=== PATIENT | female | born 1975 | race Caucasian/White ===

== ENCOUNTER 2016-09-09 14:46 | Emergency (ER) | payer BC, OTHER ==
[~2016-09-09] VITALS: Ht 160 cm; Wt 160.0 kg
[~2016-09-09 14:46] MED LIST: ADVI200T PO; HYDR-3129 PO; ISON100T2 PO; LORA-474 PO; VITA50TA30 PO
[2016-09-09 14:48] VITALS: BP 144/96; PULSE 90; RESP 18; TEMP 97.7; O2SAT 98
--- NOTE | 2016-09-09 15:32 | PD ---
HPI . right knee pain s/p fall Chief Complaint: Injury Time Seen by Provider: 15:31 Travel History International Travel<30 days: No Contact w/Intl Traveler<30days: No Traveled to known affect area: No History of Present Illness HPI 40-year-old female here with complaints of right knee pain status post fall yesterday while at the [facility] at [place]. Patient says she slipped and fell hurting her right knee. She tells me that she has a history of sustaining easy fractures and would like to know if this is broken. She complains of pain in the patella. She is ambulatory and can flex and extend her knee. She rates the pain as moderate. SHe does have history of knee pain. She is accompanied by her significant other. PFSH Past Medical History Arthritis: Yes (RA) Diminished Hearing: No Fibromyalgia: Yes Reproductive: Yes (PCOS) Immunizations Current: No ?: Not LMP: 09/05/16 : 2 Miscarriage: 2 Ovarian Cysts: Yes (POLYCYSTIC OVARY DISEASE) Past Surgical History Appendectomy: Yes Social History Alcohol Use: Yes ("VERY RARELY") Tobacco Use: Yes (3/3 PPD) Substance Use: No Allergies-Medications (Allergen,Severity, Reaction): Coded Allergies: Sulfa (Verified Allergy, Mild, Itching, 09/09/16) Reported Meds & Prescriptions Reported Meds & Active Scripts Active Reported Ambien (Zolpidem Tartrate) 10 Mg Tab 10 Mg PO HS PRN Percocet (Oxycodone-Acetaminophen) 10-325 mg Tab 1 Tab PO Q6H PRN Ativan (Lorazepam) 1 Mg Tab 1 Mg PO DAILY PRN Review of Systems General / Constitutional: No: Fever Eyes: No: Visual changes HENT: No: Headaches Cardiovascular: No: Chest Pain or Discomfort Respiratory: No: Shortness of Breath Gastrointestinal: No: Abdominal Pain Genitourinary: No: Dysuria Musculoskeletal: Positive: Pain (right knee pain) Skin: No Rash Neurologic: No: Weakness Psychiatric: No: Depression Endocrine: No: Polydipsia Hematologic/Lymphatic: No: Easy Bruising Physical Exam Narrative GENERAL: AAO x 3, no acute distress, Well-nourished, well-developed patient. SKIN: Warm and dry. No visible rashes or bruising. HEAD: Normocephalic and atraumatic. EYES: No scleral icterus. No injection or drainage. ENT: No nasal drainage noted. Mucous membranes pink. Airway patent. NECK: Supple, trachea midline. No JVD. CARDIOVASCULAR: Regular rate and rhythm without murmurs, gallops, or rubs. RESPIRATORY: Breath sounds equal bilaterally. No accessory muscle use. No rhonchi or rales. GASTROINTESTINAL: Abdomen soft, non-tender, nondistended. EXTREMITIES: No cyanosis or edema. tenderness to patella, no edema or ecchymosis , flexion and extension normal, but elicits pain BACK: No obvious deformity. NEURO: CN II-12 intact, firer powerhouse strength normal b/l, UE and LE 5/5, no focal deficits PSYCH: AAO x 3, normal affect. Data Data Last Documented VS Vital Signs Date Time Temp Pulse Resp B/P Pulse Ox O2 Delivery O2 Flow Rate FiO2 09/09/16 14:48 97.7 90 18 144/96 98 Orders Knee, Complete (4vws) (09/09/16 15:35) Abdoulaye Bandage (09/09/16 16:22) Crutches (09/09/16 16:22) MDM Medical Decision Making Medical Screen Exam Complete: Yes Emergency Medical Condition: Yes Medical Record Reviewed: Yes Differential Diagnosis knee pain, less likely fracture, less likely dislocation, fall Narrative Course 40-year-old female here with complaints of right knee pain status post fall. I do not suspect a bony injury, however she insists that she is easy to sustain fractures. xray ordered Last Impressions Knee X-Ray 09/09/16 1535 Signed Impressions: Service Date/Time: Friday, September 09, 2016 16:00 - CONCLUSION: Unremarkable examination of the right knee. Jhon Nicole MD I discussed the normal findings with the patient. We have provided Abdoulaye wrap and crutches. She is already taking pain medications and can resume those. I also advised her that she could use some [id number] ibuprofen Patient verbalized understanding of instructions, questions were answered, and thanked me for their care. I advised them if their condition worsens, please return to the nearest emergency room for further care. Diagnosis Primary Impression: Right knee pain Qualified Code: M25.561 - Acute pain of right knee Additional Impression: Fall Qualified Code: W19.XXXA - Fall, initial encounter Patient Instructions: General Instructions Additional Instructions: Rest the affected area as much as possible. Ice this area for 15-20 minutes at a time. You can do this every hour or as much as tolerated. Keep this area compressed (abdoulaye bandage) as tolerated. Elevate this area. Use ibuprofen as needed for pain and inflammation. Please return to emergency department if your symptoms return or worsen. Follow up with your primary care provider. Med/Other Pt SpecificInfo: No Change to Meds Disposition: 01 DISCHARGE HOME Condition: Stable Celsa Scott Sep 09, 2016 15:32
--- NOTE | 2016-09-09 16:08 | RADRPT ---
EXAM DATE/TIME: 09/09/2016 16:00 [facility] COMPARISON: No previous studies available for comparison. INDICATIONS : Right knee pain post fall today. MEDICAL HISTORY : None. SURGICAL HISTORY : None. ENCOUNTER: Initial ACUITY: 1 day PAIN SCORE: 7/10 LOCATION: Right knee. FINDINGS: Four view examination of the right knee demonstrates no evidence of fracture or dislocation. Bony mi neralization is normal. The articular surfaces are intact. The suprapatellar soft tissues have a no rmal configuration. Soft tissue calcification consistent with chondrocalcinosis and CPPD CONCLUSION: Unremarkable examination of the right knee. John Nicole MD on September 09, 2016 at 16:06 Board Certified Radiologist. This report was verified electronically.
[2016-09-09] MEDS ORDERED: LORA-474 PO (16:09)
[2016-09-09] MEDS ORDERED: PERC10TA27 PO (16:09)
[2016-09-09] MEDS ORDERED: AMBI10TA PO (16:09)
[2016-09-09 16:24] VITALS: BP 138/86; TEMP 97.8
== END 2016-09-09 16:24 | disposition home or self-care (01) ==
LOC: NEPK 14:46
DX: M25.561 Pain in right knee (principal); M06.9 Rheumatoid arthritis, unspecified; M79.7 Fibromyalgia; E28.2 Polycystic ovarian syndrome; F17.200 Nicotine dependence, unspecified, uncomplicated; Z79.899 Other long term (current) drug therapy; Z88.2 Allergy status to sulfonamides; W01.0XXA Fall on same level from slipping, tripping and stumbling without subsequent striking against object, initial encounter
CPT/HCPCS: 73564; 99283; E0113

== ENCOUNTER 2016-09-18 00:59 | Emergency (ER) | payer BC ==
[~2016-09-18] VITALS: Ht 160 cm; Wt 154.5 kg
[~2016-09-18 00:59] MED LIST changes: -ADVI200T PO; +AMBI10TA PO; -HYDR-3129 PO; -ISON100T2 PO; +PERC10TA27 PO; -VITA50TA30 PO
[2016-09-18 01:05] VITALS: BP 173/102; PULSE 114; RESP 18; TEMP 98; O2SAT 98
[2016-09-18] MEDS ORDERED: APRE1TAB3 PO (01:30)
[2016-09-18] MEDS ORDERED: ACET-815 PO (01:30)
[2016-09-18] MEDS ORDERED: IBUP800T23 PO (01:30)
[2016-09-18] MEDS ORDERED: ONDANSETRON HCL 4 MG/2 ML VIAL IV PUSH ONE (03:00)
[2016-09-18] MEDS ORDERED: MORPHINE SULFATE 4 MG/ML INJ IV PUSH ONE (03:00)
[2016-09-18] MEDS ORDERED: KETOROLAC TROMETHAMINE 30 MG/ML (IVP) VIAL IV PUSH ONE (03:00)
[2016-09-18 03:10] VITALS: PULSE 87; RESP 16; O2SAT 95
--- NOTE | 2016-09-18 03:11 | PD ---
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 Patient has history of PCOS and of recurrent pelvic pain and vaginal bleeding. Patient was seen by tip finisher and personal physician about this problem. Patient states that the pain got worse recently. Patient states that her last menstruation period was 2 weeks ago with pelvic pain and vaginal bleeding. Patient states that she started having vaginal bleeding with pelvic pain again this evening. Patient denies any headache. Patient denies any chest pain or shortness of breath. Patient denies any nausea vomiting diarrhea. Patient denies any back pain. She states that the pelvic pain localized to lower abdomen pelvic area. Patient denies any pain radiation. On a scale of 1-10 the pain is a 10. Patient status post appendectomy. Patient has history of migraine, anxiety, fibromyalgia, dyslipidemia, migraine. PFSH Past Medical History Arthritis: Yes Anxiety: Yes High Cholesterol: Yes Diminished Hearing: No Fibromyalgia: Yes Headaches: Yes Reproductive: Yes (PCOS) Immunizations Current: No Migraines: Yes Triglycerides - High: Yes Tetanus Vaccination: Unknown ?: Not LMP: 09/17/16 : 2 Miscarriage: 2 Ovarian Cysts: Yes (POLYCYSTIC OVARY DISEASE) Past Surgical History Appendectomy: Yes Social History Alcohol Use: Yes ("VERY RARELY") Tobacco Use: Yes (3/4 PPD) Substance Use: No (PT DENIES ) Allergies-Medications (Allergen,Severity, Reaction): Coded Allergies: Sulfa (Verified Allergy, Mild, Itching, 09/18/16) Reported Meds & Prescriptions Reported Meds & Active Scripts Active Reported Otezla (Apremilast) 30 Mg Tab 1 Tab PO DAILY Midol Teen (Acetaminophen-Pamabrom) 500-25 mg Tab 2 Tab PO Q6HR PRN Ibuprofen 800 Mg Tab 800 Mg PO Q8H PRN Ambien (Zolpidem Tartrate) 10 Mg Tab 10 Mg PO HS PRN Percocet (Oxycodone-Acetaminophen) 10-325 mg Tab 1 Tab PO Q6H PRN Ativan (Lorazepam) 1 Mg Tab 1 Mg PO DAILY PRN Review of Systems General / Constitutional: No: Fever Eyes: No: Visual changes HENT: No: Headaches Cardiovascular: No: Chest Pain or Discomfort Respiratory: No: Shortness of Breath Gastrointestinal: No: Abdominal Pain Genitourinary: Positive: Dysmenorrhea, Vaginal Bleeding, No: Dysuria Musculoskeletal: No: Pain Skin: No Rash Neurologic: No: Weakness Psychiatric: No: Depression Endocrine: No: Polydipsia Hematologic/Lymphatic: No: Easy Bruising Physical Exam Narrative GENERAL: Well-nourished, well-developed patient. SKIN: Focused skin assessment warm/dry. HEAD: Normocephalic. EYES: No scleral icterus. No injection or drainage. NECK: Supple, trachea midline. No JVD or lymphadenopathy. CARDIOVASCULAR: Regular rate and rhythm without murmurs, gallops, or rubs. RESPIRATORY: Breath sounds equal bilaterally. No accessory muscle use. GASTROINTESTINAL: Abdomen soft, moderate tenderness with palpation lower abdomen , nondistended. No rebound tenderness. No mass. MUSCULOSKELETAL: No cyanosis, or edema. BACK: Nontender without obvious deformity. No CVA tenderness. Data Data Last Documented VS Vital Signs Date Time Temp Pulse Resp B/P Pulse Ox O2 Delivery O2 Flow Rate FiO2 09/18/16 03:12 117/68 09/18/16 03:10 87 16 95 Room Air 09/18/16 01:05 98.0 Orders Complete Blood Count With Diff (09/18/16 02:43) Comprehensive Metabolic Panel (09/18/16 02:43) Urinalysis - C+S If Indicated (09/18/16 02:43) Iv Access Insert/Monitor (09/18/16 02:43) Ecg Monitoring (09/18/16 02:43) Oximetry (09/18/16 02:43) Ed Urine Pregnancytest Poc (09/18/16 02:43) Morphine Inj (Morphine Inj) (09/18/16 03:00) Ketorolac Inj (Toradol Inj) (09/18/16 03:00) Ondansetron Inj (Zofran Inj) (09/18/16 03:00) Us Pelvis Comp W Transvaginal (09/18/16 02:43) Labs Laboratory Tests Test 09/18/16 09/18/16 03:00 03:30 White Blood Count 12.9 TH/MM3 Red Blood Count 4.64 MIL/MM3 Hemoglobin 14.0 GM/DL Hematocrit 41.2 % Mean Corpuscular Volume 88.8 FL Mean Corpuscular Hemoglobin 30.1 PG Mean Corpuscular Hemoglobin 34.0 % Concent Red Cell Distribution Width 13.7 % Platelet Count 225 TH/MM3 Mean Platelet Volume 8.6 FL Neutrophils (%) (Auto) 62.0 % Lymphocytes (%) (Auto) 30.8 % Monocytes (%) (Auto) 3.5 % Eosinophils (%) (Auto) 2.7 % Basophils (%) (Auto) 1.0 % Neutrophils # (Auto) 8.0 TH/MM3 Lymphocytes # (Auto) 4.0 TH/MM3 Monocytes # (Auto) 0.5 TH/MM3 Eosinophils # (Auto) 0.3 TH/MM3 Basophils # (Auto) 0.1 TH/MM3 CBC Comment AUTO DIFF Differential Comment AUTO DIFF CONFIRMED Platelet Estimate NORMAL Platelet Morphology Comment NORMAL Red Cell Morphology Comment NORMAL Sodium Level 140 MEQ/L Potassium Level 3.6 MEQ/L Chloride Level 105 MEQ/L Carbon Dioxide Level 28.0 MEQ/L Anion Gap 7 MEQ/L Blood Urea Nitrogen 7 MG/DL Creatinine 0.82 MG/DL Estimat Glomerular Filtration 76 ML/MIN Rate Random Glucose 134 MG/DL Calcium Level 9.0 MG/DL Total Bilirubin 0.2 MG/DL Aspartate Amino Transf 26 U/L (AST/SGOT) Alanine Aminotransferase 31 U/L (ALT/SGPT) Alkaline Phosphatase 90 U/L Total Protein 7.6 GM/DL Albumin 3.3 GM/DL Urine Color JT Urine Turbidity CLEAR Urine pH 5.5 Urine Specific [place] 1.034 Urine Protein TRACE mg/dL Urine Glucose (UA) NEG mg/dL Urine Ketones NEG mg/dL Urine Occult Blood SMALL Urine Nitrite NEG Urine Bilirubin NEG Urine Leukocyte Esterase NEG Urine RBC 4-9 /hpf Urine WBC 0-2 /hpf Urine Squamous Epithelial 6-8 /hpf Cells Urine Bacteria NONE /hpf Microscopic Urinalysis Comment CULT NOT INDICATED MDM Medical Decision Making Medical Screen Exam Complete: Yes Emergency Medical Condition: Yes Interpretation(s) 3:50 AM. CBC WBC 12.9. Normal differential. CMP within normal limit. UA positive RBC. 4:18 AM. Last Impressions Pelvis Ultrasound 09/18/16 0243 Signed Impressions: Service Date/Time: August 03:24 - CONCLUSION: The right ovary is not visualized. Otherwise, normal pelvic ultrasound. Evelio Ramos MD Differential Diagnosis Differential diagnosis including acute exacerbation of PCOS, UTI, pyelonephritis , nephrolithiasis, threatened AB, ectopic . Narrative Course 40-year-old female with acute exacerbation of recurrent abdominal pain pelvic pain and vaginal bleeding. History of PCOS. Morphine 2 mg IV. Zofran 4 mg IV. Toradol 30 mg IV. Diagnosis Primary Impression: PELVIC AND PERINEAL PAIN Patient Instructions: General Instructions Additional Instructions: Continue with ibuprofen for pain. Follow-up with personal physician and tip finisher. Return if worse. Med/Other Pt SpecificInfo: No Change to Meds Disposition: 01 DISCHARGE HOME Condition: Stable Tad Tafoya MD Sep 18, 2016 03:11
[2016-09-18 03:12] VITALS: BP 117/68
[2016-09-18 03:13] LABS: BASOPHIL # 0.1 TH/MM3 (0-0.2); EOSINOPHIL # 0.3 TH/MM3 (0-0.4); EOSINOPHIL % 2.7 % (0.0-4.0); HEMATOCRIT 41.2 % (35.0-46.0); LYMPH % 30.8 % (9.0-44.0); MEAN CELL VOLUME 88.8 FL (80.0-100.0); MEAN CORPUSCULAR HEMOGLOBIN 30.1 PG (27.0-34.0); MONO % 3.5 % (0.0-8.0); PLATELET COUNT 225 TH/MM3 (150-450); RED BLOOD COUNT 4.64 MIL/MM3 (4.00-5.30); RED CELL DISTRIBUTION WIDTH 13.7 % (11.6-17.2); WHITE BLOOD COUNT 12.9 TH/MM3 (4.0-11.0)
[2016-09-18 03:15] LABS: HEMO FLAGS AUTO DIFF
[2016-09-18 03:33] LABS: PLATELET ESTIMATE SMEAR NORMAL (NORMAL); PLATELET MORPHOLOGY NORMAL (NORMAL); SCAN/DIFF AUTO DIFF CONFIRMED
[2016-09-18 03:34] LABS: CHLORIDE 105 MEQ/L (98-107); POTASSIUM 3.6 MEQ/L (3.5-5.1); SODIUM (NA) 140 MEQ/L (136-145)
[2016-09-18 03:38] LABS: ANION GAP 7 MEQ/L (5-15); BLOOD UREA NITROGEN 7 MG/DL (7-18)
[2016-09-18 03:41] LABS: ALT (GPT) 31 U/L (10-53); AST (GOT) 26 U/L (15-37); GLOMERULAR FILTRATION RATE 76 ML/MIN (>89)
[2016-09-18 03:41] LABS: BLOOD, URINE SMALL (NEG); GLUCOSE,URINE NEG (NEG); KETONE, URINE NEG (NEG); NITRITE,URINE NEG (NEG); PH, URINE 5.5 (5.0-8.5)
[2016-09-18 03:42] LABS: TOTAL BILIRUBIN ADULT 0.2 MG/DL (0.2-1.0)
[2016-09-18 03:43] LABS: ALKALINE PHOSPHATASE 90 U/L (45-117)
[2016-09-18 03:47] LABS: COMMENT (UR) CULT NOT INDICATED; CULTURE IF INDICATED CULT NOT INDICATED; URINE COLOR AMBER (YELLW/STRAW); WBC, URINE 0-2 /hpf (0-5)
--- NOTE | 2016-09-18 04:03 | RADRPT ---
EXAM DATE/TIME: 09/18/2016 03:24 [facility] COMPARISON: US PELVIS COMP W/TRANSVAGINAL, June 18, 2011, 15:08. EXTERNAL COMPARISON : [facility], US TRANSVAGINAL, August 08, 2015, US PELVIS- COMPLETE, August 08, 2015. INDICATIONS : Pelvic pain. MEDICAL HISTORY : Hypercholesterolemia. Arthritis. Migraines. Hyperlipidemia. PCOS. Fibromyalgia. Anxiety. SURGICAL HISTORY : Appendectomy. Bilateral carpel tunnel. ENCOUNTER: Initial ACUITY: 1 day PAIN SCORE: 9/10 LOCATION: Bilateral pelvis MEASUREMENTS: UTERUS: 9.3 x 4.3 x 4.5 cm ENDOMETRIAL STRIPE: 14 mm RIGHT OVARY: Non visualized LEFT OVARY: 2.5 x 2.7 x 2.8 cm FINDINGS: UTERUS: The myometrium has homogeneous echotexture without mass. Nabothian cysts are present. RIGHT OVARY: Not visualized. No adnexal mass is seen. LEFT OVARY: Ovary contains no mass or significant cystic lesion. Follicles are present. MISCELLANEOUS: No free fluid. CONCLUSION: The right ovary is not visualized. Otherwise, normal pelvic ultrasound. Evelio Ramos MD on September 18, 2016 at 4:00 Board Certified Radiologist. This report was verified electronically.
[2016-09-18 04:35] VITALS: BP 107/59; PULSE 82; RESP 16; O2SAT 97
== END 2016-09-18 04:38 | disposition home or self-care (01) ==
LOC: PHED 00:59
DX: R10.2 Pelvic and perineal pain (principal); F17.200 Nicotine dependence, unspecified, uncomplicated
CPT/HCPCS: 76830; 76856; 80053; 81001; 84703; 85025; 96374; 96375; 99285; J1885; J2270; J2405

== ENCOUNTER 2016-12-01 10:23 | Day surgery (SDC) | payer BC ==
[~2016-12-01] VITALS: Ht 160 cm; Wt 158.0 kg
[~2016-12-01 10:23] MED LIST changes: +ACET-815 PO; +APRE1TAB3 PO; +IBUP800T23 PO
[2016-12-01 11:00] VITALS: BP 141/92; PULSE 81; RESP 19; O2SAT 96
[2016-12-01] MEDS ORDERED: ASPIRIN 81 MG CHEW TAB PO SCH (11:15)
[2016-12-01 11:57] LABS: PROTHROMBIN TIME - PATIENT 11.2 SEC (9.8-11.6)
[2016-12-01 12:12] LABS: BASOPHIL # 0.1 TH/MM3 (0-0.2); BASOPHIL % 0.6 % (0.0-2.0); EOSINOPHIL # 0.3 TH/MM3 (0-0.4); EOSINOPHIL % 3.2 % (0.0-4.0); HEMATOCRIT 40.2 % (35.0-46.0); HEMO FLAGS DIFF FINAL; LYMPH % 34.3 % (9.0-44.0); LYMPHOCYTE # 3.1 TH/MM3 (1.0-4.8); MEAN CELL VOLUME 91.4 FL (80.0-100.0); MEAN CORPUSCULAR HEMOGLOBIN 31.6 PG (27.0-34.0); MEAN CORPUSCULAR HGB CONC 34.6 % (32.0-36.0); MONO % 6.9 % (0.0-8.0); PLATELET COUNT 189 TH/MM3 (150-450); RED CELL DISTRIBUTION WIDTH 14.5 % (11.6-17.2); WHITE BLOOD COUNT 9.1 TH/MM3 (4.0-11.0)
[2016-12-01 12:14] LABS: POTASSIUM 3.9 MEQ/L (3.5-5.1)
[2016-12-01 13:26] LABS: BETA HCG QUANT LESS THAN 1 MIU/ML (0-5)
--- NOTE | 2016-12-01 16:12 | EKG ---
Date Performed: 12/01/2016 Time Performed: 11:35:00 PTAGE: 41 years EKG: Sinus rhythm QRS changes V3/V4 may be due to LVH but cannot rule out anterior infarct Low QRS voltages in precord ial leads Abnormal ECG NO PREVIOUS TRACING DOCTOR: Jameel Lagunas Interpretating Date/Time 12/01/2016 16:11:39
[2016-12-02] MEDS ORDERED: CYCL1TAB29 PO (11:26)
== END 2016-12-01 12:30 | disposition home or self-care (01) ==
LOC: HDOC 10:23 → HDIC 10:23 → HDOC 12:30
PROVIDERS: ATTEND Internal Medicine Interventional Cardiology
DX: R94.31 Abnormal electrocardiogram [ECG] [EKG] (principal); I20.0 Unstable angina
CPT/HCPCS: 80048; 84702; 85025; 85347; 85610; 93005

== ENCOUNTER 2016-12-02 10:29 | Day surgery (SDC) | payer BC ==
[~2016-12-02] VITALS: Ht 160 cm; Wt 159.7 kg
[~2016-12-02 10:29] MED LIST changes: -ACET-815 PO; -AMBI10TA PO
[2016-12-02] MEDS ORDERED: IOHEXOL 350 MG/ML 100 ML BTL (for Cath Lab) OTHER ONE (10:30)
[2016-12-02] MEDS ORDERED: NS 1000P @30 MLS/HR (KVO) IV SCH (11:15)
[2016-12-02] MEDS ORDERED: ASPIRIN EC 81 MG TABEC PO SCH (11:15)
[2016-12-02] MEDS ORDERED: CYCL1TAB29 PO (11:26)
[2016-12-02] MEDS ORDERED: HEPARIN-NS/PF INJ 1,000 ML ONE (12:15)
[2016-12-02] MEDS ORDERED: MIDAZOLAM HCL 2 MG/2 ML VIAL ONE (12:15)
[2016-12-02] MEDS ORDERED: ADENOSINE STRESS TEST INJ 90 MG/30 ML VIAL ONE (13:17)
[2016-12-02] MEDS ORDERED: HEPARIN SODIUM - IV 10,000 UNITS/10 ML VIAL ONE (13:20)
[2016-12-02] MEDS ORDERED: SODIUM NITROPRUSSIDE 50 MG/2 ML VIAL ONE (13:25)
--- NOTE | 2016-12-02 13:57 | CATHPROC ---
[employer] HIS Report Study Information Study Number Admission Scheduled Start Study Start [id number] Dec 02 2016 10:29AM 12/02/2016 Dec 02 2016 11:46AM [place] Service Cardiac Catheterization Admit Source Facility Department Other [facility] Physician and Clinical Staff Initial Raimundo Harvey [place] Operator Emanuel RN, Oj Recorder Yon Hodges,ATOMIC WELDER(BS) Scrub Soo Christensen,RT(R) Procedures Performed Procedure Location (Site) Vessel Name Coronary Angiograms LCA Left Coronary Coronary Angiograms RCA Right Coronary Equipment Time Chairman Ceo Description Size Mfg Part Number Used/Scraped CATHETER, FR5 SWAN CELESTE 11:47 GENTILE ARTHUR FR 5 [id number] *[id number] Used MONITOR TRANSDUCER, TRUWAVE [id number] 11:47 GENTILE ARTHUR * Used W/STOCKCOCK *[id number] [id number] *[id number] *[id number] [id number] *[id number] 11:47 MEDLINE INDUSTRIES PACK, CCL CUSTOM * Used *[id number] 11:47 MEDLINE PACER PEN, SKIN DUAL W/ RULER * Used *[id number] 11:47 MERIT MEDICAL SHEATH, FR5.5 PRELUDE 11CM FR 5.5 Used 038ACT# [id number] 13:21 MERIT MEDICAL SHEATH, FR6.5 PRELUDE 11CM FR 6.5 038ACT Used *[id number] 11:47 MERIT MEDICAL WIRE, 3MMJ .035 180CM 180CM Used *[id number] 11:47 NAMIC MANIFOLD, 4 PORT * Used *[id number] 11:47 NYCOMED OMNIPAQUE, 350 MG, 150ML 150ML [id number] Used [id number] 11:47 BOGGS MEDICAL BLANKET,WARM AIR CCL * Used *[id number] 11:47 TERUMO MEDICAL SHEATH, FR4 TERUMO (10CM) FR 4 Used *[id number] 13:29 [place]OLCANO PRIME WIRE, VERRATA 185CM 185CM [id number] *[id number] Used History: Allergies Allergy Reaction Sulfa Itching Sulfa (Sulfonamide Antibiotics) Itching History: Risk Factors Family History of Hypertension Dyslipidemia Previous [place] Previous Heart Failure Premature CAD No Yes No No Yes Prior Valve Prior PCI Prior CABG Surgery No No No Cerebrovascular Peripheral Artery Chronic Lung On Dialysis Diabetes Disease Disease Disease No No No No No History: Stress Tests Stress or Imaging Studies Performed No History: Other Current Smoker Packs a Day Years Used Pack Years Yes 1 13 13 Labs Hgb (g/dl) Hct (%) WBC (l/cumm) Platelets (thousands) 11.60-17.00 35.00-51.00 4.00-11.00 150.00-450.00 13.9 40.2 9.1 189 Glucose (mg/dl) BUN (mg/dl) Creatinine (mg/dl) BUN:Creatinine (1:x) 74.00-106.00 7.00-18.00 0.50-1.30 10.00-20.00 108 6 0.6 10 Na (meq/l) K (meq/l) 136.00-145.00 3.50-5.10 138 3.9 INR (PTT:PT) 0.90-1.10 1 CPK-MB (ng/ML) 0.50-3.60 Not Drawn Medication Medication Total Dose (Bolus/Oral) Medication Total Dosage/Unit 1% XYLOCAINE 20 mL FENTANYL 12.5 mcg HEPARIN 13600 units VERSED 1 mg Medications (Bolus/Oral) Medication Time Given Dosage/Unit Administered By Reason VERSED 12/02/2016 1:00:31 PM 1 mg Oj Castellanos RN 1 mg VERSED given in lab by Oj Castellanos RN in Left Hand via Peripheral IV. Ordered by Em Jara. 1% XYLOCAINE 12/02/2016 1:03:08 PM 20 mL Raimundo Jara 20 mL 1% XYLOCAINE given in lab by Raimundo Jara in Right Groin via Subcutaneous. Ordered by Raimundo Lopes. FENTANYL 12/02/2016 1:07:44 PM 12.5 mcg Raimundo Jara 12.5 mcg FENTANYL given in lab by Raimundo Jara in Left Hand via Peripheral IV. Ordered by Raimundo Verde. HEPARIN 12/02/2016 1:22:00 PM [address] [place] [address] units HEPARIN given in lab by Oj Castellanos RN in Left Hand via Peripheral IV. Ordered by Raimundo Dunn. Medication (Drip) Medication Time Given Dosage/Unit Concentration/Unit Diluent (ml) Solution 12/02/2016 12:07:06 IV Solutions 0 mL (IV) 500 NaCl .9 PM Patient arrived on IV Solutions given by Oj Castellanos RN in Left Hand via Peripheral IV. Pump/Drip Fl ow = 20 ml/hr using NaCl .9. Ordered by Raimundo Jara. Initial Case Assessment Cardiovascular HR Rhythm NIBP Chest Pain 82 SR 126/77 0 Edema Present Skin color Skin None Normal Warm Dry Circulatory - Right Pulses Dorsalis Pedis Femoral 1 1 Scale (0,1,2,3,4,d) Scale (0,1,2,3,4,d) Circulatory - Lower Extremities Color Lower Right Color Lower Left Normal Normal Neurological State Oriented to time-place- Alert Moves all extremities person Respiration - General Respiration Rate SpO2 (%) (B/min) 15 95 Chronological Log Time Study Chronological Log 12:06:46 Patient arrived via Bed. 12:06:47 Patient Name, D.O.B, / Armband Verified By R.N. 12:06:48 Consent signed by the physician and the patient and verified by the [facility] staff. 12:06:48 Pre-op and post- op instructions given; patient acknowledges understanding of instruction s. 12:06:50 Verbal Stimulation=2 Physical Stimulation=2 Airway=2 Respiration=2 TOTAL=8. (0=absent, 1= limited, 2=present) 12:06:51 Presedation assessment performed by Sdet RN. 12:06:55 Immediate Presedation assesment performed by physician. 12:06:57 Patient has been NPO for More than 6Hrs. 12:06:58 Skin Breakdown- none per patient 12:07:04 Patient Warmer Placed on the Table. 12:07:05 Francisco Prominences Protected 12:07:05 A # 20 IV was noted in the Hand (left). Grade = 0 Patient arrived on IV Solutions given by Oj Castellanos RN in Left Hand via Peripheral IV. Pump/D rip Flow = 20 ml/hr 12:07:06 using NaCl .9. Ordered by Raimundo Jara. 12:07:06 History and physical on the chart or being dictated. Vitals capture started with the following parameters, Patient=Adult, Interval=3 min, Initial Pr seutqa=701 mmHg, 12:15:23 Deflation Rate=5 mmHg, Cuff placed on Left Ankle 12:16:00 HR=76 bpm, MUUM=989/69 mmhg, SpO2=95.0 %, Resp=18 B/min, Pain=0, Prasanna=10, Briggs=2 Assessment: Initial Case, HR=82 BPM, Rhythm=SR, HYIA=881/77 mmhg, Chest Pain=0, Edema=None, Col or=Normal, Skin = Warm, Dry Right Pulses: Hubert Ped=1, Femoral=1 12:18:45 Lower Right Extremities: Color=Normal Lower Left Extremities: Color=Normal Neurological: State=Alert, Ox3, GORDON Respiration: Resp=15 B/min, SpO2=95 % 12:19:00 RI=231 bpm, CFVN=075/77 mmhg, SpO2=94.0 %, Resp=18 B/min, Pain=0, Prasanna=10, Briggs=2 12:19:12 Reference ECG taken 12:22:00 HR=81 bpm, TPDK=912/88 mmhg, SpO2=96.0 %, Resp=7 B/min, Pain=0, Prasanna=10, Briggs=2 12:25:01 HR=76 bpm, OVTQ=840/91 mmhg, SpO2=95.0 %, Resp=19 B/min, Pain=0, Prasanna=10, Briggs=2 12:28:03 HR=76 bpm, UUVL=643/81 mmhg, SpO2=94.0 %, Resp=19 B/min, Pain=0, Prasanna=10, Briggs=2 12:31:05 HR=74 bpm, ELWH=309/79 mmhg, SpO2=95.0 %, Resp=17 B/min, Pain=0, Prasanna=10, Briggs=2 12:32:38 Reference ECG taken 12:33:59 HR=81 bpm, IWSM=533/81 mmhg, SpO2=94.0 %, Resp=12 B/min, Pain=0, Prasanna=10, Briggs=2 12:36:59 HR=73 bpm, RYNA=447/80 mmhg, SpO2=94.0 %, Resp=18 B/min, Pain=0, Prasanna=10, Briggs=2 12:40:04 HR=72 bpm, LDRK=657/59 mmhg, SpO2=95.0 %, Resp=15 B/min, Pain=0, Prasanna=10, Briggs=2 12:41:10 Pressure channel 1 zeroed. 12:42:15 MD paged 12:42:43 MD responded 12:43:02 HR=74 bpm, HQFZ=558/68 mmhg, SpO2=94.0 %, Resp=18 B/min, Pain=0, Prasanna=10, Briggs=2 12:46:00 HR=77 bpm, PXCK=749/72 mmhg, SpO2=95.0 %, Resp=17 B/min, Pain=0, Prasanna=10, Briggs=2 12:49:00 HR=73 bpm, RRNM=662/66 mmhg, SpO2=95.0 %, Resp=16 B/min, Pain=0, Prasanna=10, Briggs=2 12:52:03 HR=74 bpm, WOPY=178/74 mmhg, SpO2=94.0 %, Resp=15 B/min, Pain=0, Prasanna=10, Briggs=2 12:55:05 HR=77 bpm, ZILQ=563/68 mmhg, SpO2=95.0 %, Resp=14 B/min, Pain=0, Prasanna=10, Briggs=2 12:58:03 HR=73 bpm, ASIG=000/76 mmhg, SpO2=94.0 %, Resp=16 B/min, Pain=0, Prasanna=10, Briggs=2 12:59:36 MD arrived. 13:00:31 1 mg VERSED given in lab by Oj Castellanos RN in Left Hand via Peripheral IV. Ordered by Raimundo August. 13:01:01 HR=74 bpm, ROFB=954/78 mmhg, SpO2=95.0 %, Resp=16 B/min, Pain=0, Prasanna=10, Briggs=2 Time Out. Correct patient, correct procedure, correct physician, power injector not loaded with contrast with surgical 13:01:37 team present. Time Out Concurred by MD and individual staff in procedure. 13:03:00 Case Start 20 mL 1% XYLOCAINE given in lab by Raimundo Jara in Right Groin via Subcutaneous. Ordered by Marek, 13:03:08 Raimundo. 13:04:06 HR=74 bpm, BMFG=389/80 mmhg, SpO2=95.0 %, Resp=19 B/min, Pain=0, Prasanna=10, Briggs=2 13:04:45 Access site was Right Femoral Vein. 13:04:54 A SHEATH, FR5.5 PRELUDE 11CM FR 5.5 was advanced into the Fem Vein (right) using the Percut aneous technique. 13:05:01 Pressure channel 1 zeroed. 13:06:00 A CATHETER, FR5 SWAN CELESTE MONITOR FR 5 was inserted via Fem Vein (right) 13:07:04 HR=82 bpm, NSSQ=814/93 mmhg, SpO2=95.0 %, Resp=16 B/min, Pain=0, Prasanna=10, Briggs=2 13:07:10 Access site was Right Femoral Artery. 13:07:15 A SHEATH, FR4 TERUMO (10CM) FR 4 was advanced into the Fem Art (right) using the Percutaneo us technique. 13:07:44 12.5 mcg FENTANYL given in lab by Raimundo Jara in Left Hand via Peripheral IV. Ordered by Raimundo Jara. 13:08:05 Saturation: Site=Ao (Aorta) , O2=94.7 %, Hgb=13.9 gm/dl, Condition=Condition 1. Used in ashlie culation. Recorded Pressure: PCW, HR=80, Condition=Condition 1 13:09:51 (Pulmonary Capillary Wedge) PCW 13:10:06 HR=83 bpm, PPOE=379/82 mmhg, SpO2=97.0 %, Resp=17 B/min, Pain=0, Prasanna=10, Briggs=2 Recorded Pressure: MPA, HR=83, Condition=Condition 1 13:10:10 (Main Pulmonary Artery) MPA 13:10:31 Saturation: Site=PA (Pulmonary Artery) , O2=77.6 %, Hgb=13.9 gm/dl, Condition=Condition 1. Used in calculation. Recorded Pressure: RV, HR=79, Condition=Condition 1 13:11:09 (Right Ventricle) RV Recorded Pressure: RA, HR=80, Condition=Condition 1 13:11:23 (Right Atrium) RA 13:11:54 Saturation: Site=RA (Right Atrium) , O2=77.1 %, Hgb=13.9 gm/dl, Condition=Condition 1. Used in calculation. 13:13:07 [place] Celeste Catheter Removed 13:13:08 HR=77 bpm, FKKP=498/75 mmhg, SpO2=96.0 %, Resp=15 B/min A JR 4.0 INFINITI CATHETER FR 4 was advanced over a wire. OMNIPAQUE, 350 MG, 150ML 150ML was us ed for 13:13:15 injections. Recorded Pressure: LV, HR=77, Condition=Condition 1 13:13:21 (Left Ventricle) LV 116/8/18 13:13:30 The RCA was injected and visualized at various angles. OMNIPAQUE, 350 MG, 150ML 150ML used . Recorded Pressure: LV, Ao, HR=76, Condition=Condition 1 13:13:35 (Left Ventricle) LV 119/2/18, (Aorta) Ao 125/78/99 Recorded Pressure: Ao, HR=79, Condition=Condition 1 13:14:24 (Aorta) Ao 119/82/100 13:16:07 HR=85 bpm, ANDU=854/88 mmhg, SpO2=94.0 %, Resp=19 B/min, Pain=0, Prasanna=10, Briggs=2 13:16:30 Catheter was removed A JL 4.0 INFINITI CATHETER FR 4 was advanced over a wire. OMNIPAQUE, 350 MG, 150ML 150ML was us ed for 13:16:32 injections. 13:18:25 The LCA was injected and visualized at various angles. OMNIPAQUE, 350 MG, 150ML 150ML used . 13:19:05 HR=86 bpm, EZBN=028/87 mmhg, SpO2=94.0 %, Resp=19 B/min, Pain=0, Prasanna=10, Briggs=2 A SHEATH, FR6.5 PRELUDE 11CM FR 6.5 was exchanged in the Fem Art (right). This was necessary in order to 13:20:20 accomodate a larger catheter. 13:22:00 93322 units HEPARIN given in lab by Oj Castellanos RN in Left Hand via Peripheral IV. Ordered by Raimundo Jara. 13:22:09 HR=84 bpm, BSBT=102/97 mmhg, SpO2=94.0 %, Resp=13 B/min, Pain=0, Prasanna=10, Briggs=2 13:25:09 HR=87 bpm, AKPI=602/76 mmhg, SpO2=95.0 %, Resp=18 B/min, Pain=0, Prasanna=10, Briggs=2 A JR 4.0 GUIDE CATHETER FR 6 was advanced over a wire. OMNIPAQUE, 350 MG, 150ML 150ML was used for 13:26:52 injections. 13:28:08 HR=86 bpm, HIQJ=736/85 mmhg, SpO2=94.0 %, Resp=13 B/min, Pain=0, Prasanna=10, Briggs=2 13:29:02 Flow Wire was was placed in the RCA. The FFR measures 0.97 percent. The IFR measures 0.99 Percent. 13:30:47 Activated Clotting Time Drawn 13:31:06 HR=83 bpm, JHDB=207/85 mmhg, SpO2=94.0 %, Resp=15 B/min, Pain=0, Prasanna=10, Briggs=2 13:33:38 ACT (Normal Range 90-180) = 267 13:34:08 HR=89 bpm, GBIH=988/75 mmhg, SpO2=93.0 %, Resp=13 B/min, Pain=0, Prasanna=10, Briggs=2 13:35:27 Wire removed 13:36:00 Catheter was removed 13:37:00 Case End 13:37:04 HR=78 bpm, CICJ=141/88 mmhg, SpO2=94.0 %, Resp=9 B/min, Pain=0, Prasanna=10, Briggs=2 13:40:41 HR=76 bpm, QULE=497/82 mmhg, SpO2=95.0 %, Resp=22 B/min, Pain=0, Prasanna=10, Briggs=2 13:41:00 In the Fem Vein (right) the SHEATH, FR5.5 PRELUDE 11CM FR 5.[address] by Raimundo August. 13:41:05 In the Fem Art (right) the SHEATH, FR6.5 PRELUDE 11CM FR 6.[address] by Raimundo Lopes. 13:43:08 Vitals capture stopped. 13:43:15 Sterile dressing applied to site 13:43:16 No case complications noted. 13:43:17 Cine recording checked. 13:43:20 Bedside Report will be given. 13:43:23 Contrast Scanned 13:43:26 A Left and Right Heart Cath was performed. 13:43:27 Patient moved to stretcher End Study - Contrast Media Used In Study Contrast Total Opened (mL) Total Used (mL) Total Wasted (mL) Omnipaque 60 60 0 End Study - Maximum Contrast Load Max Contrast Load (mL) 1320.1 End Study - Radiation Exposure Fluoro Time (minutes) 4.2 End Study - Patient Disposition Complications Transferred To Telemetry Bed
[2016-12-02] MEDS ORDERED: SODIUM CHLORIDE 0.9% FLUSH 10 ML FLUSH IV FLUSH PRN (14:00)
[2016-12-02] MEDS ORDERED: MISC INFORMATION XX ONE (14:00)
[2016-12-02] MEDS ORDERED: IBUPROFEN 800 MG TAB PO PRN (16:15)
[2016-12-02] MEDS ORDERED: LORazepam 1 MG TAB PO PRN (16:15)
[2016-12-02] MEDS ORDERED: ASPIRIN EC 81 MG TABEC PO ONE (16:30)
[2016-12-02] MEDS ORDERED: CYCLOBENZAPRINE HCL 10 MG TAB PO PRN (16:30)
[2016-12-02 16:57] LABS: INDIRECT BILIRUBIN 0.2 MG/DL (0.0-0.8); TOTAL BILIRUBIN ADULT 0.4 MG/DL (0.2-1.0)
[2016-12-02 18:15] VITALS: BP 124/72; PULSE 74; RESP 22; TEMP 98.6; O2SAT 97
[2016-12-02 19:00] VITALS: PULSE 74
--- NOTE | 2016-12-02 19:15 | MR ---
cc: JIMBO VARGAS M.D. DATE: 12/02/2016 PROCEDURE PERFORMED: Right heart catheterization, left heart catheterization, left ventriculography, coronary angiography, FFR of the proximal mid right coronary artery. INDICATION: Preop, noncardiac surgery. New onset moderate to severe chest pain at rest, unstable angina. [place] Cardi[employer], class IV angina. Severe dyspnea with Lexiscan infusion, CHF, multiple systemic inflammatory conditions including polycystic ovarian disease, psoriasis and rheumatoid arthritis, coronary artery disease, pulmonary hypertension. Large fixed defect in the posterior wall, anterior wall, inferior and septum. Moderate size reversible defect in the posterior wall, inferior wall and septum. Gated SPECT ejection fraction 73%. PROCEDURE: The patient was brought to the Cardiac Catheterization Laboratory, prepped and draped in the usual sterile fashion. 10 cc of 1% lidocaine was used to locally anesthetize the right common femoral artery. A 4 Taiwanese sheath was successfully placed in the right common femoral artery. 5 Taiwanese sheath placed in the right common femoral vein. Right heart catheterization was performed first with the following findings. Pulmonary capillary wedge pressure 27/26/20, PA pressure 36/12/26. RV pressure 38/10/17. RA pressure 17/13/9. Cardiac output by LILI is 9.5 liters per minute. Cardiac index by LILI is 3.9 liters per meter square per minute. SVR 768.4 dynes. On room air the femoral artery sat was 94.7%. PA sat 77.6%. RA sat 77.1%. Left heart catheterization was then performed with a 4 Taiwanese JL4, JR4 catheter with the following findings: The LV pressures 118/12/14. EF 55%. Right coronary artery is dominant, large vessel, has a proximal mid 60% stenosis at bifurcation with a small RV branch. The distal vessel has diffuse disease up to 10 to 20% angiographically. The right PDA, SARAH has no significant obstructive disease angiographically. The left main coronary artery has mild disease in the mid to distal segment up to 10% angiographically. There is a medium size ramus intermedius vessel which has mild disease in the proximal segment, long, smooth tibial lesion 10 to 20%. The first obtuse marginal vessel bifurcates, medium size vessel, no significant obstructive disease. The left circumflex vessel has mild diffuse disease in the nii-ke-nychfr segment up to 10 to 20% angiographically. LAD is a transapical vessel mild diffuse disease in the proximal segment up to 10-20% angiographically. First diagonal artery is a small to medium-sized vessel, mild disease in the proximal segment up to 10-20% angiographically. The 4-Taiwanese sheath was exchanged for the 6-Taiwanese sheath. I did think the FFR of the proximal mid right coronary is medically necessary as the patient had new-onset moderate to severe chest pain at rest, multiple cardiac risk factors and high risk nuclear stress test and preop noncardiac surgery. The patient was then given 60 units per kilo of heparin. The ACT was 267. A 6 Taiwanese JR-4 guide was placed in the ostial of the right coronary artery. A 0.014 volcano pressure wire was placed in the proximal right coronary artery. The guide catheter was thoroughly flushed with 20 cc of normal saline. The introducer was removed, pressure waveforms were normalized. IFR was 0.99. The patient's calculated dose of adenosine was 115 mics which exceeded the dose limit of 120, therefore, I felt the risk/benefit ratio most favored Nipride infusion as the patient has severe reaction to Lexiscan with severe dyspnea. Therefore, I placed a 0.014 [place] pressure wire into the distal right coronary artery, infused 200 micrograms of Nipride into the right coronary artery which was then flushed with 10 cc of normal saline. FFR was 0.97 after 90 seconds. CONCLUSION 1. Chest pain, mild to moderate three-vessel coronary artery disease in the right dominant system as detailed above. 2. 60% proximal mid RCA stenosis as detailed above with FFR 0.97 after 200 mcg of intracoronary Nipride and IFR of 0.99. 3. Recommend defer PCI of the right coronary artery. 4. Recommend medical management of coronary artery disease for risk factor modification. 5. Ejection fraction 55%. 6. Mildly elevated right heart cath pressures with upper limits of normal to mildly elevated LV pressures. 7. I have advised the patient to start baby aspirin 81 milligrams daily. 8. Will check lipids, CK, and NCP guidelines. MD MARY Mcmanus/FERNANDO /1:40 PM /5:50 PM
[2016-12-02 20:00] VITALS: BP 143/84; PULSE 69; PULSE 72; RESP 18; TEMP 97.6; O2SAT 98
[2016-12-02 21:00] VITALS: PULSE 74
[2016-12-02] MEDS ORDERED: ATORVASTATIN 10 MG TAB PO SCH (21:00)
[2016-12-02] MEDS ORDERED: SODIUM CHLORIDE 0.9% FLUSH 10 ML FLUSH IV FLUSH SCH (21:00)
[2016-12-02] MEDS: oxyCODONE/ACETAMINOPHEN 10 MG/325 MG TAB PO PRN (21:46)
[2016-12-02 22:00] VITALS: PULSE 72
[2016-12-02 23:00] VITALS: BP 154/85; PULSE 66; PULSE 80; RESP 18; TEMP 97.2; O2SAT 96
[2016-12-03] VITALS (12 sets, daily range): BP systolic 120–145; BP diastolic 74–88; PULSE 67–87; RESP 16; TEMP 97.1–97.4; O2SAT 94–95
[2016-12-03] MEDS: oxyCODONE/ACETAMINOPHEN 10 MG/325 MG TAB PO PRN (03:45)
[2016-12-03 06:17] LABS: AUTOMATED NEUTROPHIL # 4.5 TH/MM3 (1.8-7.7); BASOPHIL % 0.5 % (0.0-2.0); EOSINOPHIL # 0.2 TH/MM3 (0-0.4); EOSINOPHIL % 3.4 % (0.0-4.0); HEMATOCRIT 38.2 % (35.0-46.0); HEMO FLAGS DIFF FINAL; LYMPH % 29.2 % (9.0-44.0); LYMPHOCYTE # 2.2 TH/MM3 (1.0-4.8); MEAN CORPUSCULAR HEMOGLOBIN 30.8 PG (27.0-34.0); MEAN CORPUSCULAR HGB CONC 33.1 % (32.0-36.0); MONO % 6.7 % (0.0-8.0); NEUT % 60.2 % (16.0-70.0); PLATELET COUNT 163 TH/MM3 (150-450); RED BLOOD COUNT 4.11 MIL/MM3 (4.00-5.30); RED CELL DISTRIBUTION WIDTH 14.1 % (11.6-17.2); WHITE BLOOD COUNT 7.4 TH/MM3 (4.0-11.0)
[2016-12-03 06:47] LABS: BICARBONATE 25.3 MEQ/L (21.0-32.0); POTASSIUM 3.8 MEQ/L (3.5-5.1)
[2016-12-03 06:50] LABS: HDL CHOLESTEROL 29.9 MG/DL (40.0-60.0)
[2016-12-03] MEDS: ASPIRIN 81 MG CHEW TAB PO SCH ×2 (08:49→09:57)
[2016-12-03] MEDS ORDERED: APREMILAST 30 MG PO SCH (09:00)
--- NOTE | 2016-12-03 14:56 | EKG ---
Date Performed: 12/03/2016 Time Performed: 05:25:10 PTAGE: 41 years EKG: Sinus rhythm Possible inferior infarct - age undetermined Low QRS voltages in precordial leads Abnormal ECG PREVIOUS TRACING : 12/02/2016 19.54 Compared to prior tracing no significant change DOCTOR: Shon Arvizu Interpretating Date/Time 12/03/2016 14:55:27
--- NOTE | 2016-12-03 23:44 | EKG ---
Date Performed: 12/02/2016 Time Performed: 19:54:22 PTAGE: 41 years EKG: Sinus rhythm PREVIOUS TRACING : 12/01/2016 11.35 Compared to prior tracing no significant change DOCTOR: Shon Arvizu Interpretating Date/Time 12/03/2016 23:43:40
== END 2016-12-03 10:10 | disposition home or self-care (01) ==
LOC: HDOC 10:29 → HDIC 10:29 → HCIN 18:10 → HDOC 12-03 10:10
PROVIDERS: ATTEND Internal Medicine Interventional Cardiology
DX: I25.110 Atherosclerotic heart disease of native coronary artery with unstable angina pectoris (principal); I50.9 Heart failure, unspecified; I27.20 Pulmonary hypertension, unspecified; I45.4 Nonspecific intraventricular block; E28.2 Polycystic ovarian syndrome; F17.200 Nicotine dependence, unspecified, uncomplicated; M05.9 Rheumatoid arthritis with rheumatoid factor, unspecified; L40.50 Arthropathic psoriasis, unspecified
CPT/HCPCS: 80048; 80061; 80076; 82550; 82810; 85002; 85025; 93005; 93460; 93571; C1769; C1887; C1893; J0153; J1644; J2250; J3010; Q9967

== ENCOUNTER → 2017-02-03 | Outpatient (CLI) | payer BC ==
[~2017-02-03] MED LIST changes: +AMIT10TA6 PO; +CYCL10TA PO; +ECASA81 PO; +IBUP1TAB7 PO; -IBUP800T23 PO
--- NOTE | 2017-02-03 12:26 | RADRPT ---
EXAM DATE/TIME: 02/03/2017 12:16 [place] COMPARISON: No previous studies available for comparison. INDICATIONS : Evaluate for pneumonia, pneumothorax and communicable diseases. Pre-op Hysterectomy MEDICAL HISTORY : None. SURGICAL HISTORY : None. ENCOUNTER: Initial ACUITY: 1 day PAIN SCORE: 0/10 LOCATION: chest FINDINGS: PA and lateral views of the chest demonstrate the lungs to be symmetrically aerated without evidence of mass, infiltrate or effusion. The cardiomediastinal contours are unremarkable. Osseous structure s are intact with some degenerative spurring of the dorsal spine. CONCLUSION: No acute cardiopulmonary process. Nguyễn Spicer MD on February 03, 2017 at 12:24 Board Certified Radiologist. This report was verified electronically.
--- NOTE | 2017-02-04 16:01 | EKG ---
Date Performed: 02/03/2017 Time Performed: 11:55:04 PTAGE: 41 years EKG: Sinus rhythm Anterior T wave changes are nonspecific Low QRS voltages in precordial leads Borderline ECG PREVIOUS TRACING : 12/03/2016 05.25 DOCTOR: John Bloom Interpretating Date/Time 02/04/2017 16:00:07
== END ==
LOC: CPRE 11:18
PROVIDERS: ATTEND Obstetrics & Gynecology
DX: Z01.810 Encounter for preprocedural cardiovascular examination (principal); Z01.811 Encounter for preprocedural respiratory examination; N87.9 Dysplasia of cervix uteri, unspecified
CPT/HCPCS: 71020; 93005

== ENCOUNTER 2017-02-11 06:07 | Inpatient (IN) | payer BC ==
[~2017-02-11] VITALS: Ht 160 cm; Wt 158.7 kg
[2017-02-11] MEDS ORDERED: POVIDONE IODINE 5% (ANTISEPSIS KIT) 4 APPLICATIONS EACH NARE PRN (07:15)
[2017-02-11] MEDS ORDERED: CHLORHEXIDINE GLUCONATE 2 % 1 PACK (2 CLOTHS) TOPICAL PRN (07:15)
[2017-02-11] MEDS ORDERED: LACTATED RINGER'S 1000 ML IV PRN (07:15)
[2017-02-11] MEDS ORDERED: SODIUM CHLORID 0.9% 500 ML IV PRN (07:15)
[2017-02-11] MEDS ORDERED: APREPITANT 40 MG CAP PO SCH (07:15)
[2017-02-11] MEDS ORDERED: METOPROLOL TARTRATE 25 MG TAB PO PRN (07:15)
[2017-02-11] MEDS: ceFAZolin 2 GM PREMIX 50 ML IV SCH ×2 (07:27→12:24)
[2017-02-11] MEDS ORDERED: BUPIVACAINE HCL PF 0.5% 30 ML VIAL ONE ×4 (09:41→09:42)
[2017-02-11] MEDS ORDERED: SUGAMMADEX SODIUM 200 MG/2 ML VIAL IV PUSH ONE ×2 (09:46)
[2017-02-11] MEDS ORDERED: ceFAZolin INJ 1,000 MG VIAL ONE (11:50)
[2017-02-11] MEDS ORDERED: ceFAZolin INJ 1,000 MG VIAL IV ONE (11:50)
[2017-02-11] MEDS ORDERED: PROMETHAZINE INJ 25 MG/ML VIAL IM PRN (12:30)
[2017-02-11] MEDS ORDERED: ONDANSETRON HCL 4 MG/2 ML VIAL IVP PRN (12:30)
[2017-02-11] MEDS ORDERED: diphenhydrAMINE HCL 25 MG CAP PO PRN (12:30)
[2017-02-11] MEDS ORDERED: SODIUM CHLORIDE 0.9% FLUSH 10 ML FLUSH IV FLUSH PRN (12:30)
[2017-02-11] MEDS ORDERED: LORazepam 0.5 MG TAB PO PRN (12:30)
[2017-02-11] MEDS ORDERED: DO NOT ADM ANY ANTICOAGULANT DRUGS PRN (12:56)
[2017-02-11] MEDS ORDERED: *morphine SULFATE 8 MG/ML PERIprocedure ONLY ONE (13:37)
[2017-02-11] MEDS: LACTATED RINGER'S 1000 ML INJ 1,000 ML IV SCH ×2 (14:00→21:01)
[2017-02-11 14:31] LABS: HEMATOCRIT 40.4 % (35.0-46.0); REVIEW FLAG FINAL
[2017-02-11] MEDS: MEPERIDINE HCL 50 MG/ML VIAL IM PRN ×2 (16:02→21:01)
[2017-02-11 17:27] VITALS: BP 116/83; PULSE 83; RESP 24; TEMP 98.4; O2SAT 96
[2017-02-11] MEDS ORDERED: AMITRIPTYLINE HCL 10 MG TAB PO SCH (21:00)
[2017-02-11] MEDS: DOCUSATE SODIUM 100 MG CAP PO SCH (21:00)
[2017-02-11] MEDS ORDERED: SODIUM CHLORIDE 0.9% FLUSH 10 ML FLUSH IV FLUSH SCH (21:00)
[2017-02-11] MEDS ORDERED: ZOLPIDEM TARTRATE 5 MG TAB PO PRN (21:00)
[2017-02-11 21:50] VITALS: BP 116/69; PULSE 83; RESP 20; TEMP 97.9; O2SAT 98
[2017-02-11] MEDS: AMITRIPTYLINE HCL 10 MG TAB PO SCH (22:46)
[2017-02-12 02:50] VITALS: BP 95/57; PULSE 6; RESP 18; TEMP 99
[2017-02-12 05:50] LABS: AUTOMATED NEUTROPHIL # 10.4 TH/MM3 (1.8-7.7); BASOPHIL # 0.1 TH/MM3 (0-0.2); BASOPHIL % 0.4 % (0.0-2.0); EOSINOPHIL % 0.1 % (0.0-4.0); HEMO FLAGS DIFF FINAL; LYMPH % 17.7 % (9.0-44.0); LYMPHOCYTE # 2.4 TH/MM3 (1.0-4.8); MEAN CELL VOLUME 90.2 FL (80.0-100.0); MEAN CORPUSCULAR HEMOGLOBIN 30.9 PG (27.0-34.0); MEAN CORPUSCULAR HGB CONC 34.2 % (32.0-36.0); MONO % 6.5 % (0.0-8.0); NEUT % 75.3 % (16.0-70.0); PLATELET COUNT 179 TH/MM3 (150-450); RED BLOOD COUNT 3.88 MIL/MM3 (4.00-5.30); RED CELL DISTRIBUTION WIDTH 14.7 % (11.6-17.2); WHITE BLOOD COUNT 13.8 TH/MM3 (4.0-11.0)
[2017-02-12 06:04] LABS: BICARBONATE 28.6 MEQ/L (21.0-32.0); POTASSIUM 4.1 MEQ/L (3.5-5.1)
[2017-02-12 06:05] VITALS: BP 98/58; PULSE 65; RESP 16; TEMP 97.7
[2017-02-12] MEDS: LACTATED RINGER'S 1000 ML INJ 1,000 ML IV SCH ×2 (06:14→09:59)
[2017-02-12 07:40] VITALS: BP 129/77; PULSE 77; RESP 20; TEMP 97.8
[2017-02-12] MEDS: IBUPROFEN 600 MG TAB PO PRN ×3 (07:41→20:26)
[2017-02-12] MEDS: DOCUSATE SODIUM 100 MG CAP PO SCH ×2 (07:42→20:26)
[2017-02-12] MEDS: oxyCODONE/ACETAMINOPHEN 5 MG/325 MG TAB PO PRN ×4 (07:42→20:27)
[2017-02-12] MEDS ORDERED: INFLUENZA VIRUS VACCINE (QUADRIVALENT) 0.5 ML SYR IM ONE (09:00)
--- NOTE | 2017-02-12 11:36 | HHI.PR ---
Subjective Remarks Doing ok, , pain is 6-8/10 but well controlled, eating well. No significant c/o with lUE, mild discomfort ; Discussed surgery and will review final pathology when completed. Objective Vital Signs Vital Signs Date Time Temp Pulse Resp B/P (MAP) Pulse Ox O2 Delivery O2 Flow Rate FiO2 02/12/17 07:40 97.8 77 20 129/77 (94) 02/12/17 06:05 97.7 65 16 98/58 (71) 02/12/17 06:05 Room Air 02/12/17 02:50 99.0 6 18 95/57 (70) 02/11/17 21:50 98 Nasal Cannula 3.00 02/11/17 21:50 97.9 83 20 116/69 (85) 98 02/11/17 17:27 98.4 83 24 116/83 (94) 96 02/11/17 15:15 98.0 92 16 132/65 (87) 95 Nasal Cannula 2 02/11/17 15:00 93 16 133/66 (88) 95 Nasal Cannula 2 02/11/17 14:45 91 16 126/61 (82) 95 Nasal Cannula 2 02/11/17 14:30 88 16 126/61 (82) 95 Nasal Cannula 2 02/11/17 14:15 92 16 128/61 (83) 94 Nasal Cannula 2 02/11/17 14:00 92 16 145/78 (100) 94 Nasal Cannula 2 02/11/17 13:45 94 16 147/72 (97) 93 Nasal Cannula 2 02/11/17 13:30 99 16 168/80 (109) 98 Nasal Cannula 2 02/11/17 13:15 94 16 167/73 (104) 93 Nasal Cannula 2 02/11/17 13:00 97 16 155/85 (108) 100 Simple Mask 10 02/11/17 12:56 98.2 97 16 153/77 (102) 98 Simple Mask 10 I/O 02/11/17 02/11/17 02/11/17 02/12/17 02/12/17 02/12/17 07:00 15:00 23:00 07:00 15:00 23:00 Intake Total 2677 ml Output Total 1125 ml 1550 ml Balance 1552 ml -1550 ml Intake Oral 30 ml IV Total 147 ml Other 2500 ml Output Urine Total 225 ml 1550 ml Estimated Blood Loss 600 ml Other 300 ml Result Diagram: 02/12/1743 02/12/1743 Objective Remarks Chest is clear, regular rate and rhythm. Abdomen is soft and non-distended. Incision is clean and dry. Onq pump removed Ext no CCE. left UE normal pulses,no edema,pain. A/P Assessment and Plan Post Op Day Doing well; stable. left upper ext. normal exam. Discussed need for ambulation;remove ch and heparin SQ to start now. . John Anderson MD Feb 12, 2017 11:36
[2017-02-12] MEDS: HEPARIN SODIUM - SQ 10,000 UNITS/ML VIAL SQ SCH (11:44)
--- NOTE | 2017-02-12 12:38 | MP ---
cc: JOHN LOPEZ M.D. DATE OF SURGERY 02/11/2017 PREOPERATIVE DIAGNOSIS 1. Polycystic ovarian syndrome. 2. Morbid obesity. 3. Complex endometrial hyperplasia with atypia. 4. Chronic dysmenorrhea and menorrhagia. PROCEDURE 1. Total abdominal hysterectomy. 2. Exam under anesthesia. POSTOPERATIVE DIAGNOSIS 1. Polycystic ovarian syndrome. 2. Morbid obesity. 3. Complex endometrial hyperplasia with atypia. 4. Chronic dysmenorrhea and menorrhagia. SURGEON Justin. ANESTHESIA General with endotracheal intubation. ESTIMATED BLOOD LOSS 600 cc. DRAINS Desai to gravity. OPERATIVE FINDINGS The patient is morbidly obese. Pelvic findings were remarkable. Both ovaries were normal in size, shape and appearance. There was no peritoneal disease. The uterus was normal size and shape, symmetrical, no mass evident. INDICATION FOR PROCEDURE The patient had been diagnosed with complex endometrial hyperplasia by simple endometrial biopsy due to menorrhagia. The pathology was atypical with complex features. The recommendation was to proceed with a simple hysterectomy. The patient also had a recent cardiac event, had a cardiac cath, and is having respiratory issues related to chronic URI. The patient was counseled to straight abdominal hysterectomy. Attempts at laparoscopic approach with compromise ventilation with anesthesia and concerns for intraoperative complications with cardiopulmonary issues were discussed. The decision was to proceed straight to open hysterectomy. The patient was consented for the possibility of removing one or both ovaries pending intraoperative findings. The patient prophylactically received Ancef two grams IV. DETAILS OF PROCEDURE The patient was taken to the operating room in stable condition and underwent general anesthesia with endotracheal intubation. She was carefully positioned in dorsal lithotomy position for placement of a Desai catheter after she was prepped and draped. She was then placed back into a flat position on the operating table. Sequentials were placed on the lower extremities for VTE prophylaxis. After she was prepped and draped a timeout was conducted and agreed by all present in the room. The patient had a very large pannus. The traxi abdominal retractor was applied to elevate the pannus and then a Pfannenstiel incision was made. The incision was carried through the subcutaneous layer which was thick, identifying the fascia in the midline and then scoring the fascia and dissecting it laterally, cleaning the fascia from the subcutaneous tissue and then opening the fascia to identify the rectus muscle. The rectus muscle was in the midline. The peritoneum was opened sharply and then the incision was extended the full length to accommodate evaluation of the pelvis. Again, the patient is morbidly obese. There were chronic issues with subcutaneous fat, preperitoneal fat and pelvic fat throughout the case. The choice of retractor was a Bookwalter which was attached to the bed without difficulty. The appropriate retractors were used after gaining entry into the perineal cavity and then placing wet lap pads and the upper abdomen to reduce the bowel. The patient was then placed in a minimal amount of Trendelenburg. The dissection was initiated by dividing the round ligaments then suturing each pedicle with a 2-0 Vicryl suture which was done throughout the case. The decision was to leave the ovaries intact. The infundibulopelvic vessels were intact. The uteroovarian pedicle was skeletonized and ligated in a hemostatic fashion with a transfixion suture of 2-0 Vicryl and then skeletonizing the uterine artery and vein bilaterally, securing it with a clamp and suturing it for hemostasis. The decision was to amputate the uterus away from the cervix to remove the cervix and afford more visualization during the procedure. The cervix was then excised at the level of the vaginal apex using Sang scissors and then was sent with the uterus to pathology for permanent. The vaginal cuff was then closed with a 0 Vicryl suture. This was placed at an angle and sutured in a vertical fashion across the apex of the vagina to the contralateral side. Good closure was noted. There was no active bleeding. During the procedure there was a significant amount of bleeding from the uterine artery and vein on the left side which was isolated and secured without complication. No hematoma had formed. The pelvis was irrigated and observation revealed no active bleeding or hematoma. Both ureters were peristalsing normally visualized through the peritoneum. Clear urine was draining through the Desai throughout the entire case. At the completion of the procedure evaluation of the cuff had a small amount of oozing. Hemostatic powder using Ethicon and Gelfoam placed to the vaginal cuff for added hemostasis. After the placement of the hemostatic agent the retractor was removed. The peritoneum was then closed after full count was made and correct closing the peritoneum with a running suture of 2-0 Monocryl and reapproximating the muscle bellies. The fascia was then closed with two separate sutures of 0 Vicryl starting from the angle and bringing it towards the midline. The subcutaneous space was irrigated. There was no active bleeding. The space was re-approximated with a running suture of 2-0 Monocryl and then 4-0 Monocryl was used to close the skin edge with Steri-Strips applied. The On-Q pain management system was used with 0.5% Marcaine plain. The reservoir was filled. The catheters were inserted both superior and inferior to the incision and then attached appropriately with securing tape. At the completion of the procedure the full count was correct. The patient was stable. She was taken to the recovery room on room air. John Lopez MD SJMar/BT /12:46 PM /12:09 PM
[2017-02-12] MEDS ORDERED: LORazepam 1 MG TAB PO PRN (13:00)
[2017-02-12 13:10] VITALS: BP 92/57; PULSE 78; RESP 18; TEMP 97.7
[2017-02-12 16:35] VITALS: BP 104/60; PULSE 71; RESP 20; TEMP 97.9
[2017-02-12 20:00] VITALS: BP 128/62; PULSE 74; RESP 20; TEMP 97.6; O2SAT 97
[2017-02-12] MEDS: AMITRIPTYLINE HCL 10 MG TAB PO SCH (20:26)
[2017-02-13] VITALS: BP 129/64; PULSE 66; RESP 18; TEMP 97.6; O2SAT 96
[2017-02-13] MEDS: oxyCODONE/ACETAMINOPHEN 5 MG/325 MG TAB PO PRN ×3 (00:52→10:05)
[2017-02-13] MEDS: HEPARIN SODIUM - SQ 10,000 UNITS/ML VIAL SQ SCH (00:54)
[2017-02-13] MEDS: IBUPROFEN 600 MG TAB PO PRN (05:43)
[2017-02-13 06:00] VITALS: BP 120/68; PULSE 67; RESP 18; TEMP 97.5; O2SAT 98
[2017-02-13 06:00] LABS: AUTOMATED NEUTROPHIL # 6.6 TH/MM3 (1.8-7.7); BASOPHIL # 0.1 TH/MM3 (0-0.2); BASOPHIL % 0.5 % (0.0-2.0); EOSINOPHIL # 0.2 TH/MM3 (0-0.4); EOSINOPHIL % 1.7 % (0.0-4.0); HEMATOCRIT 34.9 % (35.0-46.0); HEMO FLAGS DIFF FINAL; LYMPH % 35.6 % (9.0-44.0); LYMPHOCYTE # 4.3 TH/MM3 (1.0-4.8); MEAN CELL VOLUME 93.5 FL (80.0-100.0); MEAN CORPUSCULAR HEMOGLOBIN 31.3 PG (27.0-34.0); MEAN CORPUSCULAR HGB CONC 33.5 % (32.0-36.0); MONO % 7.4 % (0.0-8.0); NEUT % 54.8 % (16.0-70.0); PLATELET COUNT 161 TH/MM3 (150-450); RED BLOOD COUNT 3.74 MIL/MM3 (4.00-5.30); RED CELL DISTRIBUTION WIDTH 14.9 % (11.6-17.2)
[2017-02-13 08:00] VITALS: BP 129/72; PULSE 65; RESP 18; TEMP 97.6; O2SAT 96
--- NOTE | 2017-02-13 08:57 | HHI.PR ---
Subjective Remarks Doing well, pain is well controlled, eating well No fevers, ambulating well, no c/o pain of LUE. Objective Vital Signs Vital Signs Date Time Temp Pulse Resp B/P (MAP) Pulse Ox O2 Delivery O2 Flow Rate FiO2 02/13/17 08:00 97.6 65 18 129/72 (91) 96 02/13/17 06:00 97.5 67 18 120/68 (85) 98 02/13/17 00:00 97.6 66 18 129/64 (85) 96 02/12/17 20:00 97.6 74 20 128/62 (84) 97 02/12/17 16:35 97.9 71 20 104/60 (75) 02/12/17 13:10 97.7 78 18 92/57 (69) I/O 02/12/17 02/12/17 02/12/17 02/13/17 02/13/17 02/13/17 07:00 15:00 23:00 07:00 15:00 23:00 Intake Total 890 ml 300 ml Output Total 1550 ml 275 ml 500 ml 550 ml Balance -1550 ml -275 ml 390 ml -250 ml Intake Oral 890 ml 300 ml Output Urine Total 1550 ml 275 ml 500 ml 550 ml # Voids 2 Result Diagram: 02/13/17 0509 02/12/17 0543 Objective Remarks Chest is clear, regular rate and rhythm. Abdomen is soft and non-distended. Incision is clean and dry. Onq pump removed Ext no CCE. left UE normal pulses,no edema,pain. A/P Assessment and Plan Post Op Day #2 Doing well; stable. left upper ext. normal exam. Discussed discharge home today. Pathology is still pending. returns to office in 2 weeks . John Anderson MD Feb 13, 2017 08:57
--- NOTE | 2017-02-13 08:58 | HHI.DCPOC ---
Discharge Care Plan Your Health Problems Are: Fever, temperature>100.4 Incisions/drains Nausea and/or vomiting Shortness of breath Vaginal bleeding Urinary difficulties Report Symptoms to Your Doctor -Temperature above 100.5 degrees -Redness, of incision or excessive or foul smelling drainage -Unusual pain or calf pain -Increased vaginal bleeding -Painful or difficulty urinating -Feelings of extreme sadness or anxiety after 2 weeks Goals to Promote Your Health * To prevent worsening of your condition and complications * To maintain your health at the optimal level Directions to Meet Your Goals Take your medications as prescribed Follow your dietary instruction Follow activity as directed Ensure plenty of rest for recovery Drink fluids for hydration Keep your appointments as scheduled Take your immunizations and boosters as scheduled If your symptoms worsen call your PCP, if no PCP go to Urgent Care Center or Emergency Room Smoking is Dangerous to Your Health. Avoid second hand smoke Call the 24-hour crisis hotline for domestic abuse at John Anderson MD Feb 13, 2017 08:58
[2017-02-13] MEDS: DOCUSATE SODIUM 100 MG CAP PO SCH (10:04)
== END 2017-02-13 10:26 | disposition home or self-care (01) | DRG 742 ==
LOC: HSDC 06:07 → HSDI 12:36 → H1EA 15:25
PROVIDERS: ADMIT Obstetrics & Gynecology; ATTEND Obstetrics & Gynecology
PROC: 0UTC0ZZ Resection of Cervix, Open Approach (ICD-10-PCS; 2017-02-11)
PROC: 0UT90ZZ Resection of Uterus, Open Approach (ICD-10-PCS; principal; 2017-02-11 08:01)
DX: N85.02 Endometrial intraepithelial neoplasia [EIN] (principal); Z68.44 Body mass index [BMI] 60.0-69.9, adult; E66.01 Morbid (severe) obesity due to excess calories; E28.2 Polycystic ovarian syndrome; N92.0 Excessive and frequent menstruation with regular cycle; N94.6 Dysmenorrhea, unspecified; J39.8 Other specified diseases of upper respiratory tract; F17.210 Nicotine dependence, cigarettes, uncomplicated; M79.7 Fibromyalgia; F41.9 Anxiety disorder, unspecified; Z23 Encounter for immunization
CPT/HCPCS: 80048; 85014; 85018; 85025; 86850; 86900; 86901; 88307; 90686; 94150; J0690; J1644; J2175; J2270; J2550; J7120; J8501; Q2038

== ENCOUNTER 2017-07-03 13:23 | Inpatient (IN) | payer BC ==
[~2017-07-03] VITALS: Ht 160 cm; Wt 174.4 kg
[2017-07-03] VITALS (10 sets, daily range): BP systolic 96–149; BP diastolic 53–99; PULSE 68–90; RESP 16–20; TEMP 97.5–98; O2SAT 95–99
[2017-07-03] MEDS ORDERED: ALBUAER3 INH (13:45)
[2017-07-03] MEDS ORDERED: [UNRECOGNIZED DRUG - OTHER] (13:45)
--- NOTE | 2017-07-03 13:59 | PD ---
HPI Chief Complaint: Chest Pain Time Seen by Provider: 13:58 Travel History International Travel<30 days: No Contact w/Intl Traveler<30days: No Traveled to known affect area: No History of Present Illness HPI 41-year-old female came to the emergency room with history of chest discomfort for past 2-3 days. Today the discomfort got worse along with some shortness of breath and she decided to go to the urgent care. She was sent to the emergency room from there. Patient says it is her entire chest. The discomfort and shortness of breath is worse upon exertion. Patient had a cardiac catheterization about 8 months ago that showed 60% blockage of her RCA. She did not get a stent put in. This was supposed to be medically managed. She is on aspirin. She took some aspirin today. Pain does not radiate anywhere else. No history of nausea or diaphoresis. No history of dizziness or syncopal episode. No prior history of DVT or PE. Patient has a student services director but has not seen him for this particular event. Vital signs are stable. PFSH Past Medical History Narrative Medical List of her past medical, surgical, social and family history is reviewed from the nursing note. Arthritis: Yes Anxiety: Yes Cancer: No Cardiovascular Problems: Yes (hyperlipidemia RECENT CATH, DECEMBER 02, 2016) High Cholesterol: Yes Chest Pain: No Diabetes: No Diminished Hearing: No Endocrine: No Fibromyalgia: Yes Gastrointestinal Disorders: No Glaucoma: No Genitourinary: No Headaches: Yes Hepatitis: No Hiatal Hernia: No Hypertension: Yes Musculoskeletal: Yes (ARTHRITIS) Neurologic: No Psychiatric: No Reproductive: Yes (PCOS) Respiratory: Yes (dyspnea) Integumentary: No Immunizations Current: No Migraines: Yes Thyroid Disease: No Triglycerides - High: Yes ?: Not : 2 Miscarriage: 2 Ovarian Cysts: Yes (POLYCYSTIC OVARY DISEASE) Past Surgical History Abdominal Surgery: Yes (APPY) AICD: No Appendectomy: Yes Cardiac Surgery: Yes (HEART CATH ) Hysterectomy: Yes Joint Replacement: No Pacemaker: No Thoracic Surgery: No Social History Alcohol Use: Yes ("VERY RARELY") Tobacco Use: Yes (/ PPD) Substance Use: No (PT DENIES ) Allergies-Medications (Allergen,Severity, Reaction): Coded Allergies: Sulfa (Sulfonamide Antibiotics) (Unverified Allergy, Mild, Itching, ) Comments List of her allergies reviewed from the nursing note. Reported Meds & Prescriptions Reported Meds & Active Scripts Active Reported Proair Hfa 8.5 GM Inh (Albuterol Sulfate) 90 Mcg/Act Aer 2 Puff INH Q4-6H PRN 108 mcg/actuation [Research med] Amitriptyline (Amitriptyline HCl) 10 Mg Tab 10 Mg PO HS Aspirin DR (Aspirin) 81 Mg Tabdr 81 Mg PO DAILY Flexeril (Cyclobenzaprine HCl) 10 Mg Tab 10 Mg PO TID Otezla (Apremilast) 30 Mg Tab 1 Tab PO DAILY Ibuprofen 800 Mg Tab 800 Mg PO Q8H PRN Percocet (Oxycodone-Acetaminophen) 10-325 mg Tab 1 Tab PO Q6H PRN Ativan (Lorazepam) 1 Mg Tab 1 Mg PO DAILY PRN Narrative Medication List of her home medications reviewed from the nursing note. Review of Systems Except as stated in HPI: all other systems reviewed are Neg Cardiovascular: Positive: Chest Pain or Discomfort Respiratory: Positive: Shortness of Breath Physical Exam Narrative GENERAL: Awake, alert, morbidly obese, moderate distress SKIN: Focused skin assessment warm/dry. HEAD: Atraumatic. Normocephalic. EYES: Pupils equal and round. No scleral icterus. No injection or drainage. ENT: No nasal bleeding or discharge. Mucous membranes pink and moist. NECK: Trachea midline. No JVD. CARDIOVASCULAR: Regular rate and rhythm. No murmur appreciated. RESPIRATORY: No accessory muscle use. Clear to auscultation. Breath sounds equal bilaterally. GASTROINTESTINAL: Abdomen soft, non-tender, nondistended. Hepatic and splenic margins not palpable. MUSCULOSKELETAL: No obvious deformities. No clubbing. No cyanosis. No edema. NEUROLOGICAL: Awake and alert. No obvious cranial nerve deficits. Motor grossly within normal limits. Normal speech. PSYCHIATRIC: Appropriate mood and affect; insight and judgment normal. Data Data Last Documented VS Vital Signs Date Time Temp Pulse Resp B/P (MAP) Pulse Ox O2 Delivery O2 Flow Rate FiO2 07/03/17 17:00 70 18 126/64 (84) 98 Room Air 07/03/17 13:30 98.0 Orders Orders Electrocardiogram (07/03/17 14:19) Basic Metabolic Panel (Bmp) (07/03/17 14:19) Ckmb (Isoenzyme) Profile (07/03/17 14:19) Complete Blood Count With Diff (07/03/17 14:19) Magnesium (Mg) (07/03/17 14:19) Prothrombin Time / Inr (Pt) (07/03/17 14:19) Act Partial Throm Time (Ptt) (07/03/17 14:19) Troponin I (07/03/17 14:19) Ecg Monitoring (07/03/17 14:19) Bilateral Bp Monitoring (07/03/17 14:19) Iv Access Insert/Monitor (07/03/17 14:19) Oximetry (07/03/17 14:19) Oxygen Administration (07/03/17 14:19) Chest, Pa & Lat (07/03/17 14:19) Ketorolac Inj (Toradol Inj) (07/03/17 15:00) D-Dimer (07/03/17 14:47) Morphine Inj (Morphine Inj) (07/03/17 15:15) Ct Pulmonary Angiogram (07/03/17 ) Iohexol 350 Inj (Omnipaque 350 Inj) (07/03/17 16:52) Admit Order (Ed Use Only) (07/03/17 17:44) Labs Laboratory Tests Test 07/03/17 14:15 White Blood Count 10.6 TH/MM3 Red Blood Count 4.74 MIL/MM3 Hemoglobin 13.8 GM/DL Hematocrit 41.9 % Mean Corpuscular Volume 88.4 FL Mean Corpuscular Hemoglobin 29.2 PG Mean Corpuscular Hemoglobin Concent 33.0 % Red Cell Distribution Width 15.2 % Platelet Count 181 TH/MM3 Mean Platelet Volume 9.1 FL Neutrophils (%) (Auto) 58.9 % Lymphocytes (%) (Auto) 31.9 % Monocytes (%) (Auto) 6.0 % Eosinophils (%) (Auto) 2.7 % Basophils (%) (Auto) 0.5 % Neutrophils # (Auto) 6.2 TH/MM3 Lymphocytes # (Auto) 3.4 TH/MM3 Monocytes # (Auto) 0.6 TH/MM3 Eosinophils # (Auto) 0.3 TH/MM3 Basophils # (Auto) 0.1 TH/MM3 CBC Comment DIFF FINAL Differential Comment Prothrombin Time 11.2 SEC Prothromb Time International Ratio 1.1 RATIO Activated Partial Thromboplast Time 27.7 SEC D-Dimer Quantitative (PE/DVT) 0.91 MG/L FEU Blood Urea Nitrogen 9 MG/DL Creatinine 0.60 MG/DL Random Glucose 85 MG/DL Calcium Level 9.0 MG/DL Magnesium Level 2.0 MG/DL Sodium Level 139 MEQ/L Potassium Level 3.7 MEQ/L Chloride Level 105 MEQ/L Carbon Dioxide Level 31.6 MEQ/L Anion Gap 2 MEQ/L Estimat Glomerular Filtration Rate 109 ML/MIN Total Creatine Kinase 64 U/L Troponin I LESS THAN 0.02 NG/ML MDM Medical Decision Making Medical Screen Exam Complete: Yes Emergency Medical Condition: Yes Medical Record Reviewed: Yes Interpretation(s) Twelve-lead EKG was reviewed by me. Normal sinus rhythm, normal axis, nonspecific ST-T wave changes. Heart rate of 87 bpm. Differential Diagnosis ACS, non-STEMI, PE Narrative Course 5:22 PM blood test results are back and d-dimer is elevated. Rest of the test is also within normal limits. CT pulmonary angiogram was done which is reported by the radiologist as negative for PE but patient has goiter and substernal mass from the thyroid. I put a call out for her student services director Dr. Jara to discuss this case with him. 5:33 PM I just discussed the case with Dr. Jara and he wants the patient to be transferred to the main hospital. He will evaluate the patient there and decide what to do next. Awaiting for the hospitalist to call back. Procedures EKG Prior to Arrival: No Physician Communication Physician Communication Dr. Jara Diagnosis Primary Impression: Chest pain Qualified Codes: R07.9 - Chest pain, unspecified Additional Impressions: Morbid obesity Goiter Admitting Information Admitting Physician Requests: Observation Samantha Johnson MD July 03, 2017 13:59
[2017-07-03 14:41] LABS: AUTOMATED NEUTROPHIL # 6.2 TH/MM3 (1.8-7.7); BASOPHIL # 0.1 TH/MM3 (0-0.2); BASOPHIL % 0.5 % (0.0-2.0); EOSINOPHIL # 0.3 TH/MM3 (0-0.4); EOSINOPHIL % 2.7 % (0.0-4.0); HEMATOCRIT 41.9 % (35.0-46.0); HEMOGLOBIN 13.8 GM/DL (11.6-15.3); LYMPH % 31.9 % (9.0-44.0); LYMPHOCYTE # 3.4 TH/MM3 (1.0-4.8); MEAN CELL VOLUME 88.4 FL (80.0-100.0); MEAN CORPUSCULAR HEMOGLOBIN 29.2 PG (27.0-34.0); MEAN PLATELET VOLUME 9.1 FL (7.0-11.0); MONOCYTE # 0.6 TH/MM3 (0-0.9); NEUT % 58.9 % (16.0-70.0); PLATELET COUNT 181 TH/MM3 (150-450); RED BLOOD COUNT 4.74 MIL/MM3 (4.00-5.30); RED CELL DISTRIBUTION WIDTH 15.2 % (11.6-17.2); WHITE BLOOD COUNT 10.6 TH/MM3 (4.0-11.0)
--- NOTE | 2017-07-03 14:45 | RADRPT ---
EXAM DATE/TIME: 07/03/2017 14:30 [facility] COMPARISON: CHEST PA & LAT, February 03, 2017, 12:16. INDICATIONS : Chest pain and cough MEDICAL HISTORY : Hypercholesterolemia. Arthritis. Migraines. Hyperlipidemia. PCOS. SURGICAL HISTORY : Appendectomy. ENCOUNTER: Initial ACUITY: 2 days PAIN SCORE: 5/10 LOCATION: Bilateral chest FINDINGS: PA and lateral views of the chest demonstrate the lungs to be symmetrically aerated without evidence of mass, infiltrate or effusion. Mild cardiomegaly. Osseous structures are intact. CONCLUSION: Mild compensated cardiomegaly, no pneumothorax Jagdeep Parsons MD FACR on July 03, 2017 at 14:42 Board Certified Radiologist. This report was verified electronically.
[2017-07-03 14:51] LABS: CHLORIDE 105 MEQ/L (98-107); SODIUM (NA) 139 MEQ/L (136-145)
[2017-07-03 14:54] LABS: BICARBONATE 31.6 MEQ/L (21.0-32.0); BLOOD UREA NITROGEN 9 MG/DL (7-18); GLUCOSE,RANDOM 85 MG/DL (74-106)
[2017-07-03 14:56] LABS: INTERNATIONAL NORMALIZED RATIO 1.1 RATIO; PROTHROMBIN TIME - PATIENT 11.2 SEC (9.8-11.6)
[2017-07-03 14:58] LABS: GLOMERULAR FILTRATION RATE 109 ML/MIN (>89)
[2017-07-03] MEDS ORDERED: KETOROLAC TROMETHAMINE 30 MG/ML (IVP) VIAL IV PUSH ONE (15:00)
[2017-07-03] MEDS ORDERED: MORPHINE SULFATE 2 MG/ML SYRINGE IV PUSH ONE (15:00)
[2017-07-03 15:02] LABS: TROPONIN I LESS THAN 0.02 NG/ML (0.02-0.05)
[2017-07-03] MEDS ORDERED: MORPHINE SULFATE 4 MG/ML INJ IV PUSH ONE (15:15)
[2017-07-03] MEDS ORDERED: IOHEXOL 350 MG/ML 10 ML VIAL (for RAD DIAG) IVCONTRAST ONE (16:52)
--- NOTE | 2017-07-03 17:14 | RADRPT ---
EXAM DATE/TIME: 07/03/2017 16:50 [facility] COMPARISON: No previous studies available for comparison. INDICATIONS : Chest pain and pressure. IV CONTRAST: 75 cc Omnipaque 350 (iohexol) IV RADIATION DOSE: 21.85 CTDIvol (mGy) ; Patient body habitus MEDICAL HISTORY : Chronic obstructive pulmonary disease. Hypertension. Cardiovascular disease SURGICAL HISTORY : Hysterectomy. Appendectomy. ENCOUNTER: Initial ACUITY: 2 days PAIN SCALE: 6/10 LOCATION: Bilateral chest TECHNIQUE: Volumetric scanning of the chest was performed using a pulmonary embolism protocol MIP images were re constructed. Using automated exposure control and adjustment of the mA and/or kV according to patien t size, radiation dose was kept as low as reasonably achievable to obtain optimal diagnostic quality images. DICOM format image data is available electronically for review and comparison. Follow-up recommendations for detected pulmonary nodules are based at a minimum on nodule size and pa tient risk factors according to Fleischner Society Guidelines. FINDINGS: PULMONARY ARTERIES: No filling defects are seen in the pulmonary arteries through the segmental level. LUNGS: There is no consolidation or pneumothorax . No concerning pulmonary nodule is visualized. PLEURAE: There is no pleural thickening or pleural effusion. MEDIASTINUM: 5.5 cm partially calcified substernal mass in the upper anterior mediastinum consistent with substern al goiter. Remainder of the thyroid is heterogeneously enlarged. No evidence of mediastinal adenopath y or hilar adenopathy. MUSCULOSKELETAL: Within normal limits for patient age. MISCELLANEOUS: The visualized upper abdominal organs demonstrate no acute abnormality. CONCLUSION: Prominent goiter with substernal mass component. No evidence of pulmonary embolism. Evelio Rand MD on July 03, 2017 at 17:08 Board Certified Radiologist. This report was verified electronically.
--- NOTE | 2017-07-03 17:16 | EKG ---
Date Performed: 07/03/2017 Time Performed: 13:44:02 PTAGE: 41 years EKG: Sinus rhythm PROBABLE INFERIOR MYOCARDIAL INFARCTION, OLD ABNORMAL ECG PREVIOUS TRACING : 02/03/2017 11.55 Since the previous tracing, no significant change noted DOCTOR: Jaz Villalobos Interpretating Date/Time 07/03/2017 17:15:22
[2017-07-03] MEDS ORDERED: ACETAMINOPHEN 325 MG TAB PO PRN ×2 (18:00)
[2017-07-03] MEDS ORDERED: MORPHINE SULFATE 4 MG/ML INJ IV PUSH PRN (18:00)
[2017-07-03] MEDS ORDERED: NALOXONE HCL 0.4 MG/ML AMP IV PUSH PRN (18:00)
[2017-07-03] MEDS ORDERED: ONDANSETRON HCL 4 MG/2 ML VIAL IVP PRN (18:00)
[2017-07-03] MEDS ORDERED: ENOXAPARIN SODIUM 40 MG/0.4 ML SYRINGE SQ SCH (18:00)
[2017-07-03] MEDS ORDERED: SODIUM CHLORIDE 0.9% FLUSH 10 ML FLUSH IV FLUSH PRN (18:00)
[2017-07-03] MEDS: LORazepam 1 MG TAB PO PRN (18:29)
[2017-07-03] MEDS: DOCUSATE SODIUM 50 MG/SENNA 8.6 MG TAB PO SCH (21:00)
[2017-07-03] MEDS ORDERED: CARVEDILOL 3.125 MG TAB PO ONE (21:30)
--- NOTE | 2017-07-03 22:31 | MB ---
cc: Raimundo Jara MD, Arthur W MD DATE: 07/03/2017 HISTORY OF PRESENT ILLNESS: Eneida is a very pleasant 41-year-old lady with history of known 60% stenosis in the right coronary artery by left heart catheterization done by myself on 12/02/2016 who presents to the ER in [place] with a chief complaint of moderate chest pain described as pressure and tightness in the substernal chest area radiating to the intrascapular area. The patient is still smoking. I prescribed her a statin, which she did not fill the prescription for. She otherwise denies any fever, chills, cough, GI or , bleeding, PND, orthopnea, syncope or dizziness. PAST MEDICAL HISTORY: As per history of present illness. She has a history of arthritis, anxiety, hyperlipidemia, fibromyalgia, arthritis, hypertension, polycystic ovarian syndrome, dyspnea, history of appendectomy. SOCIAL HISTORY: Rarely drinks alcohol. She smokes 3/4 of a pack of cigarettes a day. ALLERGIES: SULFA. MEDICATIONS PRIOR TO ADMISSION: 1. ProAir. 2. Amitriptyline. 3. Aspirin 81 mg a day. 4. Flexeril 5. Otezla 30 mg daily. 6. Ibuprofen. 7. Percocet. 8. Ativan. MEDICATIONS IN THE HOSPITAL: 1. Aspirin 81 mg a day. 2. Otezla 30 mg daily. 3. Elavil 10 mg at bedtime. 4. Lovenox 40 subQ q. 24 hours. PHYSICAL EXAMINATION: VITAL SIGNS: Blood pressure 147/80, pulse 90, saturations 96% on room air, respiratory rate 18, temperature 98.0. GENERAL: She is alert and oriented x3, in no acute distress. NECK: Supple. No JVD. No bruit. CARDIOVASCULAR: S1, S2. No murmurs, rubs or gallops. LUNGS: Clear to auscultation bilaterally. ABDOMEN: Soft, nontender, nondistended with positive bowel sounds. EXTREMITIES: No lower extremity edema. IMAGING STUDIES: CT of the chest shows prominent goiter with substernal mass component. No evidence of pulmonary embolism. Chest x-ray: Mild compensated cardiomegaly, no pneumothorax. CARDIOLOGY STUDIES: EKG: Normal sinus rhythm at 87 beats per minute, small Q-waves in the inferior leads which are nondiagnostic. LABORATORY DATA: White count 10.6, hemoglobin 13.8, hematocrit 41.9, platelet count 181. INR is 1.1. Sodium 139, potassium 3.7, chloride 105, bicarbonate 31.6, BUN 9, creatinine 0.6. Troponin is less than 0.02. Magnesium 2.0. DIAGNOSES: 1. Unstable angina. 2. [place] [employer] Society class IV angina. 3. Coronary artery disease. 4. Polycystic ovarian syndrome. 5. Prominent goiter. 6. Tobacco abuse. 7. Noncompliance with medical regimen. DISCUSSION: At this point in time, agree with aspirin. We will also check fasting lipids, guidelines. Chest TSH. I do think the patient should be admitted. I agree with Dr. Johnson that the patient needs a repeat cath. I have explained this to the patient. We will need to make sure that she is euthyroid in order not to precipitate any thyroid storm with iodine contrast administration. Strongly recommend smoking cessation. We will also add Coreg as well. MD MARY Mcmanus//felicia , 09:17 PM , 09:42 PM
[2017-07-03] MEDS: AMITRIPTYLINE HCL 10 MG TAB PO SCH (23:07)
[2017-07-03] MEDS: SODIUM CHLORIDE 0.9% FLUSH 10 ML FLUSH IV FLUSH SCH (23:08)
[2017-07-04] VITALS (9 sets, daily range): BP systolic 106–141; BP diastolic 58–81; PULSE 68–91; RESP 16–20; TEMP 97.5–98.7; O2SAT 94–97
[2017-07-04 03:47] LABS: ALKALINE PHOSPHATASE 93 U/L (45-117); ALT (GPT) 33 U/L (10-53); HDL CHOLESTEROL 31.3 MG/DL (40.0-60.0); TOTAL BILIRUBIN ADULT 0.3 MG/DL (0.2-1.0); TOTAL PROTEIN 7.5 GM/DL (6.4-8.2)
[2017-07-04 03:48] LABS: ALBUMIN 3.1 GM/DL (3.4-5.0); AST (GOT) 36 U/L (15-37); BICARBONATE 29.3 MEQ/L (21.0-32.0); BLOOD UREA NITROGEN 13 MG/DL (7-18); CALCIUM 8.4 MG/DL (8.5-10.1); CHLORIDE 103 MEQ/L (98-107); CHOLESTEROL 226 MG/DL (120-200); CHOLESTEROL/ HDL RATIO 7.22 RATIO; CREATININE 0.87 MG/DL (0.50-1.00); GLOMERULAR FILTRATION RATE 71 ML/MIN (>89); GLUCOSE,RANDOM 123 MG/DL (74-106); LDL CHOLESTEROL 144 MG/DL (0-99); SODIUM (NA) 139 MEQ/L (136-145); TRIGLYCERIDES 252 MG/DL (42-150)
[2017-07-04] MEDS: DOCUSATE SODIUM 50 MG/SENNA 8.6 MG TAB PO SCH ×2 (09:00→21:00)
[2017-07-04] MEDS: CARVEDILOL 3.125 MG TAB PO SCH ×2 (09:00→21:00)
[2017-07-04] MEDS ORDERED: OTEZLA 30 MG PO SCH (09:00)
[2017-07-04] MEDS: ASPIRIN EC 81 MG TABEC PO SCH (09:30)
[2017-07-04] MEDS: SODIUM CHLORIDE 0.9% FLUSH 10 ML FLUSH IV FLUSH SCH ×2 (09:30→22:06)
[2017-07-04 09:56] LABS: BASOPHIL # 0.1 TH/MM3 (0-0.2); BASOPHIL % 0.6 % (0.0-2.0); EOSINOPHIL # 0.3 TH/MM3 (0-0.4); EOSINOPHIL % 3.1 % (0.0-4.0); HEMATOCRIT 38.7 % (35.0-46.0); HEMOGLOBIN 12.9 GM/DL (11.6-15.3); LYMPHOCYTE # 2.8 TH/MM3 (1.0-4.8); MEAN CELL VOLUME 90.1 FL (80.0-100.0); MEAN CORPUSCULAR HGB CONC 33.3 % (32.0-36.0); MEAN PLATELET VOLUME 8.8 FL (7.0-11.0); MONO % 8.1 % (0.0-8.0); MONOCYTE # 0.7 TH/MM3 (0-0.9); NEUT % 56.2 % (16.0-70.0); PLATELET COUNT 151 TH/MM3 (150-450); RED CELL DISTRIBUTION WIDTH 15.3 % (11.6-17.2); WHITE BLOOD COUNT 8.9 TH/MM3 (4.0-11.0)
--- NOTE | 2017-07-04 10:54 | HHI.HP ---
HPI Service [facility] Hospitalists Primary Care Physician Gardenia Jackman MD Admission Diagnosis Chest pain, goiter, morbid obese Diagnoses: (1) Unstable angina (2) Medical non-compliance (3) Benign hypertension (4) Hyperlipidemia (5) Morbid obesity Chief Complaint: Substernal chest pain Travel History International Travel<30 Days: No Contact w/Intl Traveler <30 Da: No Traveled to Known Affected Are: No History of Present Illness 41-year-old female for past medical history of CAD, hyperlipidemia, morbid obesity and known history of 60% stenosis in the RCA by [facility] December 02, 2016, initially presented to [place] ED for evaluation of an acute onset of substernal chest pain described as tightness with radiation to the intrascapular area without any associated diaphoresis. Patient has been noncompliant with medical care. She denies any cough. During my exam, patient was mostly concerned about thyroid goiter and stated the reason why she was transferred to [facility]. She has no GI bleed. She ruled out initially with cardiac enzyme and EKGs. Case discussed with Dr. Jara, cardiology Review of Systems Except as stated in HPI: all other systems reviewed are Neg Past Family Social History Past Medical History Arthritis: Yes Anxiety: Yes Cardiovascular Problems: Yes (hyperlipidemia RECENT CATH, DECEMBER 02, 2016) High Cholesterol: Yes Fibromyalgia: Yes Headaches: Yes Hypertension: Yes Musculoskeletal: Yes (ARTHRITIS) Migraines: Yes Thyroid Disease: No Triglycerides - High: Yes Ovarian Cysts: Yes (POLYCYSTIC OVARY DISEASE) Past Surgical History Appendectomy: Yes Cardiac Surgery: Yes (HEART CATH ) Hysterectomy: Yes Reported Medications Proair Hfa 8.5 GM Inh (Albuterol Sulfate) 90 Mcg/Act Aer 2 Puff INH Q4-6H PRN 108 mcg/actuation [Research med] Amitriptyline (Amitriptyline HCl) 10 Mg Tab 10 Mg PO HS Aspirin DR (Aspirin) 81 Mg Tabdr 81 Mg PO DAILY Flexeril (Cyclobenzaprine HCl) 10 Mg Tab 10 Mg PO TID Otezla (Apremilast) 30 Mg Tab 1 Tab PO DAILY Ibuprofen 800 Mg Tab 800 Mg PO Q8H PRN Percocet (Oxycodone-Acetaminophen) 10-325 mg Tab 1 Tab PO Q6H PRN Ativan (Lorazepam) 1 Mg Tab 1 Mg PO DAILY PRN Allergies: Coded Allergies: Sulfa (Sulfonamide Antibiotics) (Unverified Allergy, Mild, Itching, ) Family History Family history positive for heart disease Social History Alcohol Use: Yes ("VERY RARELY") Tobacco Use: Yes (3/4 PPD) Substance Use: No (PT DENIES ) Physical Exam Vital Signs Vital Signs Date Time Temp Pulse Resp B/P (MAP) Pulse Ox O2 Delivery O2 Flow Rate FiO2 07/04/17 08:51 83 07/04/17 07:27 97.8 78 20 111/61 (78) 96 07/04/17 07:15 94 21 07/04/17 06:19 21 07/04/17 03:54 97.7 68 16 112/65 (81) 97 07/04/17 00:21 97.6 70 16 141/81 (101) 97 07/03/17 21:46 97.5 73 16 142/75 (97) 98 07/03/17 20:00 90 18 147/80 (102) 96 Room Air 07/03/17 20:00 88 18 146/81 (102) 96 07/03/17 19:00 80 18 149/92 (111) 97 Room Air 07/03/17 19:00 80 18 97 Room Air 07/03/17 18:33 68 18 112/60 (77) 98 Room Air 07/03/17 17:00 70 18 126/64 (84) 98 Room Air 07/03/17 16:00 69 18 103/53 (70) 95 Room Air 07/03/17 16:00 18 07/03/17 16:00 18 07/03/17 15:18 102/55 (71) Room Air 115/66 (82) 07/03/17 15:12 83 18 102/55 (71) 99 Room Air 118/64 (82) 07/03/17 15:12 99 Room Air 07/03/17 15:00 80 18 96/63 (74) 96 Room Air 07/03/17 13:53 99 Room Air 07/03/17 13:30 98.0 88 20 147/99 (115) 98 Physical Exam GENERAL: This is a well-nourished, well-developed obese patient, in no apparent distress. SKIN: No rashes, ecchymoses or lesions. Cool and dry. HEAD: Atraumatic. Normocephalic. No temporal or scalp tenderness. EYES: Pupils equal round and reactive. Extraocular motions intact. No scleral icterus. No injection or drainage. ENT: Nose without bleeding, purulent drainage or septal hematoma. Throat without erythema, tonsillar hypertrophy or exudate. Uvula midline. Airway patent. NECK: Trachea midline. No JVD or lymphadenopathy. Supple, nontender, no meningeal signs. CARDIOVASCULAR: Regular rate and rhythm without murmurs, gallops, or rubs. RESPIRATORY: Clear to auscultation. Breath sounds equal bilaterally. No wheezes , rales, or rhonchi. GASTROINTESTINAL: Abdomen soft, non-tender, nondistended. No hepato-splenomegaly , or palpable masses. No guarding. MUSCULOSKELETAL: Extremities without clubbing, cyanosis, or edema. No joint tenderness, effusion, or edema noted. No calf tenderness. Negative Homans sign bilaterally. NEUROLOGICAL: Awake and alert. Cranial nerves II through XII intact. Motor and sensory grossly within normal limits. Five out of 5 muscle strength in all muscle groups. Normal speech. Laboratory Laboratory Tests Test 07/03/17 14:15 07/03/17 20:53 07/04/17 03:00 07/04/17 09:16 White Blood Count 10.6 8.9 Red Blood Count 4.74 4.30 Hemoglobin 13.8 12.9 Hematocrit 41.9 38.7 Mean Corpuscular Volume 88.4 90.1 Mean Corpuscular Hemoglobin 29.2 30.0 Mean Corpuscular Hemoglobin Concent 33.0 33.3 Red Cell Distribution Width 15.2 15.3 Platelet Count 181 151 Mean Platelet Volume 9.1 8.8 Neutrophils (%) (Auto) 58.9 56.2 Lymphocytes (%) (Auto) 31.9 32.0 Monocytes (%) (Auto) 6.0 8.1 Eosinophils (%) (Auto) 2.7 3.1 Basophils (%) (Auto) 0.5 0.6 Neutrophils # (Auto) 6.2 5.0 Lymphocytes # (Auto) 3.4 2.8 Monocytes # (Auto) 0.6 0.7 Eosinophils # (Auto) 0.3 0.3 Basophils # (Auto) 0.1 0.1 CBC Comment DIFF FINAL DIFF FINAL Differential Comment Prothrombin Time 11.2 Prothromb Time International Ratio 1.1 Activated Partial Thromboplast Time 27.7 D-Dimer Quantitative (PE/DVT) 0.91 Blood Urea Nitrogen 9 13 Creatinine 0.60 0.87 Random Glucose 85 123 Calcium Level 9.0 8.4 Magnesium Level 2.0 Sodium Level 139 139 Potassium Level 3.7 3.8 Chloride Level 105 103 Carbon Dioxide Level 31.6 29.3 Anion Gap 2 7 Estimat Glomerular Filtration Rate 109 71 Total Creatine Kinase 64 Troponin I LESS THAN 0.02 LESS THAN 0.02 LESS THAN 0.02 Thyroid Stimulating Hormone 3rd Gen 1.170 Total Protein 7.5 Albumin 3.1 Alkaline Phosphatase 93 Aspartate Amino Transf (AST/SGOT) 36 Alanine Aminotransferase (ALT/SGPT) 33 Total Bilirubin 0.3 Triglycerides Level 252 Cholesterol Level 226 LDL Cholesterol 144 HDL Cholesterol 31.3 Cholesterol/HDL Ratio 7.22 Result Diagram: 07/04/17 0916 07/04/17 0300 Imaging Last Impressions Chest X-Ray 07/03/17 1419 Signed Impressions: Service Date/Time: Monday, July 03, 2017 14:30 - CONCLUSION: Mild compensated cardiomegaly, no pneumothorax Jagdeep Parsons MD FACR CT Angiography 07/03/17 0000 Signed Impressions: Service Date/Time: Monday, July 03, 2017 16:50 - CONCLUSION: Prominent goiter with substernal mass component. No evidence of pulmonary embolism. Evelio Rand MD Septic Shock Reassessment Septic shock perfusion: reassessment completed Caprini VTE Risk Assessment Caprini VTE Risk Assessment: No/Low Risk (score <= 1) Caprini Risk Assessment Model Point Value = 1 Point Value = 2 Point Value = 3 Point Value = 5 Age 41-60 Minor surgery BMI > 25 kg/m2 Swollen legs Varicose veins or History of unexplained or recurrent spontaneous Oral contraceptives or hormone replacement Sepsis (< 1 month) Serious lung disease, including pneumonia (< 1 month) Abnormal pulmonary function Acute myocardial infarction Congestive heart failure (< 1 month) History of inflammatory bowel disease Medical patient at bed rest Age 61-74 Arthroscopic surgery Major open surgery (> 45 min) Laparoscopic surgery (> 45 min) Malignancy Confined to bed (> 72 hours) Immobilizing plaster cast Central venous access Age >= 75 History of VTE Family history of VTE Factor V Leiden Prothrombin [id number] Lupus anticoagulant Anticardiolipin antibodies Elevated serum homocysteine Heparin-induced thrombocytopenia Other congenital or acquired thrombophilia Stroke (< 1 month) Elective arthroplasty Hip, pelvis, or leg fracture Acute spinal cord injury (< 1 month) Prophylaxis Regimen Total Risk Factor Score Risk Level Prophylaxis Regimen 0-1 Low Early ambulation 2 Moderate Order ONE of the following: *Sequential Compression Device (SCD) *Heparin 5000 units SQ BID 3-4 Higher Order ONE of the following medications: *Heparin 5000 units SQ TID *Enoxaparin/Lovenox 40 mg SQ daily (WT < 150 kg, CrCl > 30 mL/min) *Enoxaparin/Lovenox 30 mg SQ daily (WT < 150 kg, CrCl > 10-29 mL/min) *Enoxaparin/Lovenox 30 mg SQ BID (WT < 150 kg, CrCl > 30 mL/min) AND/OR *Sequential Compression Device (SCD) 5 or more Highest Order ONE of the following medications: *Heparin 5000 units SQ TID (Preferred with Epidurals) *Enoxaparin/Lovenox 40 mg SQ daily (WT < 150 kg, CrCl > 30 mL/min) *Enoxaparin/Lovenox 30 mg SQ daily (WT < 150 kg, CrCl > 10-29 mL/min) *Enoxaparin/Lovenox 30 mg SQ BID (WT < 150 kg, CrCl > 30 mL/min) AND *Sequential Compression Device (SCD) Assessment and Plan Problem List: (1) Unstable angina ICD Code: I20.0 - Unstable angina (2) Hyperlipidemia ICD Code: E78.5 - Hyperlipidemia, unspecified (3) Benign hypertension ICD Code: I10 - Essential (primary) hypertension (4) Medical non-compliance ICD Code: Z91.19 - Patient's noncompliance with other medical treatment and regimen (5) Morbid obesity ICD Code: E66.01 - Morbid (severe) obesity due to excess calories Status: Acute Assessment and Plan 41-year-old female with Unstable angina ACS ruled out per protocol with serial cardiac enzyme and EKGs Chest x-ray noted and reviewed by me without any acute finding CTA noted and reviewed by me without any evidence of PE Case discussed with cardiology this morning, Dr. Jara Start Lovenox 100 mg subcu every 12 hours, continue beta-angel, aspirin Start Lipitor 80 mg at bedtime Tobacco counseling cessation provided Plan for heart catheterization Friday, July 07, 2017 Continue telemetry monitoring Thyroid goiter TSH and free T4 within normal limits Check thyroid ultrasound Hyperlipidemia Start Lipitor 80 mg at bedtime Tobacco abuse Tobacco counseling cessation provided Hypertension Continue Coreg 3.125 mg twice daily Morbid obesity Advised on total lifestyle change modification DVT prophylaxis: Lovenox Code Status Full code Discussed Condition With Patient, , Nicola Simon MD July 04, 2017 10:54
--- NOTE | 2017-07-04 11:44 | RADRPT ---
EXAM DATE/TIME: 07/04/2017 10:58 [place] COMPARISON: No previous studies available for comparison. INDICATIONS : Mass. MEDICAL HISTORY : Hypercholesterolemia. Chronic obstructive pulmonary disease. Glasses. Hyperlipidemia. Chest pain. Dy spnea. Polycystic ovarian syndrome. Fibromyalgia. Arthritis. SURGICAL HISTORY : Appendectomy. Hysterectomy. Carpal tunnel syndrome. ENCOUNTER: Initial ACUITY: 1 day PAIN SCORE: 1/10 LOCATION: Bilateral neck MEASUREMENTS: RIGHT LOBE: 6.8 x 2.5 x 3.4 cm LEFT LOBE: 8.0 x 4.1 x 3.7 cm FINDINGS: RIGHT LOBE: Heterogeneous echotexture with normal vascularity. The thyroid gland is diffusely enlarged. No discre te nodule or cyst. LEFT LOBE: Heterogeneous echotexture with diffuse enlargement. Normal vascularity. No evidence of discrete nodul e or cyst. ISTHMUS: Heterogeneous echotexture and enlargement. No nodules. CONCLUSION: Thyromegaly with heterogeneous echotexture. No evidence of discrete nodule or mass. No evidence of ad enopathy. Arianna James MD on July 04, 2017 at 11:31 Board Certified Radiologist. This report was verified electronically.
--- NOTE | 2017-07-04 12:16 | PD.CARD.PN ---
Subjective Subjective Remarks still having mild chest pain, refusing coreg Objective Medications Current Medications Medications (Trade) Dose Ordered Sig/Rufino Route Start Time Stop Time Status Last Admin (Elavil) 10 mg HS PO 07/03/17 21:00 07/03/17 23:07 (Ecotrin Ec) 81 mg DAILY PO 07/04/17 09:00 07/04/17 09:30 (Ativan) 1 mg DAILY PRN PO 07/03/17 18:00 07/03/17 18:29 Patient Own Medication PT OWN MED: OTEZLA 30MG DAILY PO 07/04/17 09:00 Future Hold (NS Flush) 2 ml UNSCH PRN IV FLUSH 07/03/17 18:00 (NS Flush) 2 ml BID IV FLUSH 07/03/17 21:00 07/04/17 09:30 (Tylenol) 650 mg Q4H PRN PO 07/03/17 18:00 (Zofran Inj) 4 mg Q6H PRN IVP 07/03/17 18:00 (Tylenol) 650 mg Q6H PRN PO 07/03/17 18:00 (Roxicodone) 10 mg Q4H PRN PO 07/03/17 18:00 (Morphine Inj) 4 mg Q3H PRN IV PUSH 07/03/17 18:00 (Roxicodone) 5 mg Q4H PRN PO 07/03/17 18:00 07/03/17 20:11 (Narcan Inj) 0.4 mg UNSCH PRN IV PUSH 07/03/17 18:00 (Liberty-Colace) 1 tab BID PO 07/03/17 21:00 (Coreg) 3.125 mg Q12HR PO 07/04/17 09:00 (Lovenox Inj) 100 mg Q12H SQ 07/04/17 21:00 (Lipitor) 80 mg HS PO 07/04/17 21:00 Vital Signs / I&O Vital Signs Date Time Temp Pulse Resp B/P (MAP) Pulse Ox O2 Delivery O2 Flow Rate FiO2 07/04/17 12:03 97.5 75 20 106/58 (74) 94 07/04/17 08:51 83 07/04/17 07:27 97.8 78 20 111/61 (78) 96 07/04/17 07:15 94 21 07/04/17 06:19 21 07/04/17 03:54 97.7 68 16 112/65 (81) 97 07/04/17 00:21 97.6 70 16 141/81 (101) 97 07/03/17 21:46 97.5 73 16 142/75 (97) 98 07/03/17 20:00 90 18 147/80 (102) 96 Room Air 07/03/17 20:00 88 18 146/81 (102) 96 07/03/17 19:00 80 18 149/92 (111) 97 Room Air 07/03/17 19:00 80 18 97 Room Air 07/03/17 18:33 68 18 112/60 (77) 98 Room Air 07/03/17 17:00 70 18 126/64 (84) 98 Room Air 07/03/17 16:00 69 18 103/53 (70) 95 Room Air 07/03/17 16:00 18 07/03/17 16:00 18 07/03/17 15:18 102/55 (71) Room Air 115/66 (82) 07/03/17 15:12 83 18 102/55 (71) 99 Room Air 118/64 (82) 07/03/17 15:12 99 Room Air 07/03/17 15:00 80 18 96/63 (74) 96 Room Air 07/03/17 13:53 99 Room Air 07/03/17 13:30 98.0 88 20 147/99 (115) 98 Physical Exam GENERAL: SKIN: Warm and dry. HEAD: Normocephalic. EYES: No scleral icterus. No injection or drainage. NECK: Supple, trachea midline. No JVD or lymphadenopathy. CARDIOVASCULAR: Regular rate and rhythm without murmurs, gallops, or rubs. RESPIRATORY: Breath sounds equal bilaterally. No accessory muscle use. GASTROINTESTINAL: Abdomen soft, non-tender, nondistended. MUSCULOSKELETAL: No cyanosis, or edema. BACK: Nontender without obvious deformity. No CVA tenderness. Laboratory Laboratory Tests Test 07/03/17 14:15 07/03/17 20:53 07/04/17 03:00 07/04/17 09:16 White Blood Count 10.6 TH/MM3 8.9 TH/MM3 Red Blood Count 4.74 MIL/MM3 4.30 MIL/MM3 Hemoglobin 13.8 GM/DL 12.9 GM/DL Hematocrit 41.9 % 38.7 % Mean Corpuscular Volume 88.4 FL 90.1 FL Mean Corpuscular Hemoglobin 29.2 PG 30.0 PG Mean Corpuscular Hemoglobin Concent 33.0 % 33.3 % Red Cell Distribution Width 15.2 % 15.3 % Platelet Count 181 TH/MM3 151 TH/MM3 Mean Platelet Volume 9.1 FL 8.8 FL Neutrophils (%) (Auto) 58.9 % 56.2 % Lymphocytes (%) (Auto) 31.9 % 32.0 % Monocytes (%) (Auto) 6.0 % 8.1 % Eosinophils (%) (Auto) 2.7 % 3.1 % Basophils (%) (Auto) 0.5 % 0.6 % Neutrophils # (Auto) 6.2 TH/MM3 5.0 TH/MM3 Lymphocytes # (Auto) 3.4 TH/MM3 2.8 TH/MM3 Monocytes # (Auto) 0.6 TH/MM3 0.7 TH/MM3 Eosinophils # (Auto) 0.3 TH/MM3 0.3 TH/MM3 Basophils # (Auto) 0.1 TH/MM3 0.1 TH/MM3 CBC Comment DIFF FINAL DIFF FINAL Differential Comment Prothrombin Time 11.2 SEC Prothromb Time International Ratio 1.1 RATIO Activated Partial Thromboplast Time 27.7 SEC D-Dimer Quantitative (PE/DVT) 0.91 MG/L FEU Blood Urea Nitrogen 9 MG/DL 13 MG/DL Creatinine 0.60 MG/DL 0.87 MG/DL Random Glucose 85 MG/DL 123 MG/DL Calcium Level 9.0 MG/DL 8.4 MG/DL Magnesium Level 2.0 MG/DL Sodium Level 139 MEQ/L 139 MEQ/L Potassium Level 3.7 MEQ/L 3.8 MEQ/L Chloride Level 105 MEQ/L 103 MEQ/L Carbon Dioxide Level 31.6 MEQ/L 29.3 MEQ/L Anion Gap 2 MEQ/L 7 MEQ/L Estimat Glomerular Filtration Rate 109 ML/MIN 71 ML/MIN Total Creatine Kinase 64 U/L Troponin I LESS THAN 0.02 NG/ML LESS THAN 0.02 NG/ML LESS THAN 0.02 NG/ML Thyroid Stimulating Hormone 3rd Gen 1.170 uIU/ML Total Protein 7.5 GM/DL Albumin 3.1 GM/DL Alkaline Phosphatase 93 U/L Aspartate Amino Transf (AST/SGOT) 36 U/L Alanine Aminotransferase (ALT/SGPT) 33 U/L Total Bilirubin 0.3 MG/DL Triglycerides Level 252 MG/DL Cholesterol Level 226 MG/DL LDL Cholesterol 144 MG/DL HDL Cholesterol 31.3 MG/DL Cholesterol/HDL Ratio 7.22 RATIO Imaging Last 24 hours Impressions Thyroid Ultrasound 07/04/17 0000 Signed Impressions: Service Date/Time: Tuesday, July 04, 2017 10:58 - CONCLUSION: Thyromegaly with heterogeneous echotexture. No evidence of discrete nodule or mass. No evidence of adenopathy. Arianna James MD Chest X-Ray 07/03/17 1419 Signed Impressions: Service Date/Time: Monday, July 03, 2017 14:30 - CONCLUSION: Mild compensated cardiomegaly, no pneumothorax Jagdeep Parsons MD FACR Assessment and Plan Problem List: (1) CAD (coronary artery disease) ICD Codes: I25.10 - Atherosclerotic heart disease of [place] coronary artery without angina pectoris (2) Tobacco abuse ICD Codes: Z72.0 - Tobacco use (3) Morbid obesity ICD Codes: E66.01 - Morbid (severe) obesity due to excess calories Status: Acute (4) Goiter ICD Codes: E04.9 - Nontoxic goiter, unspecified Status: Acute (5) Unstable angina ICD Codes: I20.0 - Unstable angina (6) Medical non-compliance ICD Codes: Z91.19 - Patient's noncompliance with other medical treatment and regimen (7) Hyperlipidemia ICD Codes: E78.5 - Hyperlipidemia, unspecified Assessment and Plan 1.) [place] - add lovenox, continue aspirin, patient noncompliant with coreg and statin, strongly advised her to dc tobacco; plan [facility] 07/06/17 Raimundo Jara MD July 04, 2017 12:16
[2017-07-04] MEDS: LORazepam 1 MG TAB PO PRN (15:28)
--- NOTE | 2017-07-04 18:19 | EKG ---
Date Performed: 07/04/2017 Time Performed: 02:11:50 PTAGE: 41 years EKG: Sinus rhythm NONSPECIFIC T-WAVE ABNORMALITY BORDERLINE ECG PREVIOUS TRACING : 07/03/2017 13.44 Since the previous tracing, no significant change noted DOCTOR: Jaz Villalobos Interpretating Date/Time 07/04/2017 18:17:31
[2017-07-04] MEDS: ATORVASTATIN 80 MG TAB PO SCH (22:05)
[2017-07-04] MEDS: ENOXAPARIN SODIUM 100 MG/ML SYRINGE SQ SCH (22:05)
[2017-07-04] MEDS: AMITRIPTYLINE HCL 10 MG TAB PO SCH (22:05)
[2017-07-05] VITALS (9 sets, daily range): BP systolic 119–145; BP diastolic 60–76; PULSE 70–88; RESP 17–20; TEMP 97.8–98.2; O2SAT 95–98
--- NOTE | 2017-07-05 07:31 | HHI.PR ---
Subjective Remarks Follow-up unstable angina July 05, 2017-patient seen and examined, denies any chest pain. No shortness of breath. Resting comfortably in bed. by the bedside Objective Vitals Vital Signs Date Time Temp Pulse Resp B/P (MAP) Pulse Ox O2 Delivery O2 Flow Rate FiO2 07/05/17 03:06 98.0 76 18 122/65 (84) 95 07/04/17 23:29 98.7 91 18 128/61 (83) 96 07/04/17 19:41 98.0 76 18 136/72 (93) 96 07/04/17 16:48 20 07/04/17 16:20 98.7 70 18 116/59 (78) 95 07/04/17 12:03 97.5 75 20 106/58 (74) 94 07/04/17 08:51 83 Result Diagram: 07/04/17 0916 07/04/17 0300 Imaging Last Impressions Thyroid Ultrasound 07/04/17 0000 Signed Impressions: Service Date/Time: Tuesday, July 04, 2017 10:58 - CONCLUSION: Thyromegaly with heterogeneous echotexture. No evidence of discrete nodule or mass. No evidence of adenopathy. Arianna James MD Chest X-Ray 07/03/17 1419 Signed Impressions: Service Date/Time: Monday, July 03, 2017 14:30 - CONCLUSION: Mild compensated cardiomegaly, no pneumothorax Jagdeep Parsons MD FACR CT Angiography 07/03/17 0000 Signed Impressions: Service Date/Time: Monday, July 03, 2017 16:50 - CONCLUSION: Prominent goiter with substernal mass component. No evidence of pulmonary embolism. Evelio Rand MD Objective Remarks GENERAL: NAD SKIN: Warm and dry. HEAD: Normocephalic. EYES: No scleral icterus. No injection or drainage. NECK: Supple, trachea midline. No JVD or lymphadenopathy. CARDIOVASCULAR: Regular rate and rhythm without murmurs, gallops, or rubs. RESPIRATORY: Breath sounds equal bilaterally. No accessory muscle use. GASTROINTESTINAL: Abdomen soft, non-tender, nondistended. MUSCULOSKELETAL: No cyanosis, or edema. BACK: Nontender without obvious deformity. No CVA tenderness. A/P Problem List: (1) Unstable angina ICD Code: I20.0 - Unstable angina (2) Hyperlipidemia ICD Code: E78.5 - Hyperlipidemia, unspecified (3) Benign hypertension ICD Code: I10 - Essential (primary) hypertension (4) Medical non-compliance ICD Code: Z91.19 - Patient's noncompliance with other medical treatment and regimen (5) Morbid obesity ICD Code: E66.01 - Morbid (severe) obesity due to excess calories Status: Acute Assessment and Plan 41-year-old female with Unstable angina ACS ruled out per protocol with serial cardiac enzyme and EKGs Chest x-ray noted and reviewed by me without any acute finding CTA noted and reviewed by me without any evidence of PE Continue Lovenox 100 mg subcu every 12 hours, continue beta-angel, aspirin Continue Lipitor 80 mg at bedtime Tobacco counseling cessation provided Plan for heart catheterization tomorrow Friday, July 07, 2017 Continue telemetry monitoring Thyroid goiter TSH and free T4 within normal limits thyroid ultrasound with evidence of thyromegaly without any nodule Hyperlipidemia Continue Lipitor 80 mg at bedtime Tobacco abuse Tobacco counseling cessation provided Hypertension Continue Coreg 3.125 mg twice daily Morbid obesity Advised on total lifestyle change modification DVT prophylaxis: Nicola Tate MD July 05, 2017 07:31
[2017-07-05] MEDS: DOCUSATE SODIUM 50 MG/SENNA 8.6 MG TAB PO SCH ×2 (09:00→21:00)
[2017-07-05] MEDS: CARVEDILOL 3.125 MG TAB PO SCH ×3 (09:00→22:00)
[2017-07-05] MEDS: ENOXAPARIN SODIUM 100 MG/ML SYRINGE SQ SCH ×2 (09:17→21:52)
[2017-07-05] MEDS: LORazepam 1 MG TAB PO PRN (09:17)
[2017-07-05] MEDS: ASPIRIN EC 81 MG TABEC PO SCH (09:18)
[2017-07-05] MEDS: SODIUM CHLORIDE 0.9% FLUSH 10 ML FLUSH IV FLUSH SCH ×2 (09:19→21:54)
--- NOTE | 2017-07-05 19:33 | PD.CARD.PN ---
Subjective Subjective Remarks still having mild chest pain,improving though, taking coreg Objective Medications Current Medications Medications (Trade) Dose Ordered Sig/Rufino Route Start Time Stop Time Status Last Admin (Elavil) 10 mg HS PO 07/03/17 21:00 07/04/17 22:05 (Ecotrin Ec) 81 mg DAILY PO 07/04/17 09:00 07/05/17 09:18 (Ativan) 1 mg DAILY PRN PO 07/03/17 18:00 07/05/17 09:17 Patient Own Medication PT OWN MED: OTEZLA 30MG DAILY PO 07/04/17 09:00 Future Hold (NS Flush) 2 ml UNSCH PRN IV FLUSH 07/03/17 18:00 (NS Flush) 2 ml BID IV FLUSH 07/03/17 21:00 07/05/17 09:19 (Tylenol) 650 mg Q4H PRN PO 07/03/17 18:00 (Zofran Inj) 4 mg Q6H PRN IVP 07/03/17 18:00 (Tylenol) 650 mg Q6H PRN PO 07/03/17 18:00 (Roxicodone) 10 mg Q4H PRN PO 07/03/17 18:00 (Morphine Inj) 4 mg Q3H PRN IV PUSH 07/03/17 18:00 (Roxicodone) 5 mg Q4H PRN PO 07/03/17 18:00 07/04/17 15:28 (Narcan Inj) 0.4 mg UNSCH PRN IV PUSH 07/03/17 18:00 (Liberty-Colace) 1 tab BID PO 07/03/17 21:00 (Coreg) 3.125 mg Q12HR PO 07/04/17 09:00 07/05/17 09:24 (Lovenox Inj) 100 mg Q12H SQ 07/04/17 21:00 07/05/17 09:17 (Lipitor) 80 mg HS PO 07/04/17 21:00 07/04/17 22:05 Vital Signs / I&O Vital Signs Date Time Temp Pulse Resp B/P (MAP) Pulse Ox O2 Delivery O2 Flow Rate FiO2 07/05/17 16:15 85 07/05/17 16:02 98.2 70 20 140/60 (86) 96 07/05/17 12:37 97.9 83 18 135/76 (95) 98 07/05/17 12:15 81 07/05/17 08:16 97.8 84 20 145/75 (98) 98 07/05/17 08:00 79 07/05/17 03:06 98.0 76 18 122/65 (84) 95 07/04/17 23:29 98.7 91 18 128/61 (83) 96 07/04/17 19:41 98.0 76 18 136/72 (93) 96 Physical Exam GENERAL: SKIN: Warm and dry. HEAD: Normocephalic. EYES: No scleral icterus. No injection or drainage. NECK: Supple, trachea midline. No JVD or lymphadenopathy. CARDIOVASCULAR: Regular rate and rhythm without murmurs, gallops, or rubs. RESPIRATORY: Breath sounds equal bilaterally. No accessory muscle use. GASTROINTESTINAL: Abdomen soft, non-tender, nondistended. MUSCULOSKELETAL: No cyanosis, or edema. BACK: Nontender without obvious deformity. No CVA tenderness. Laboratory Laboratory Tests Test 07/05/17 03:38 Troponin I LESS THAN 0.02 NG/ML Assessment and Plan Problem List: (1) CAD (coronary artery disease) ICD Codes: I25.10 - Atherosclerotic heart disease of [place] coronary artery without angina pectoris (2) Tobacco abuse ICD Codes: Z72.0 - Tobacco use (3) Morbid obesity ICD Codes: E66.01 - Morbid (severe) obesity due to excess calories Status: Acute (4) Goiter ICD Codes: E04.9 - Nontoxic goiter, unspecified Status: Acute (5) Unstable angina ICD Codes: I20.0 - Unstable angina (6) Medical non-compliance ICD Codes: Z91.19 - Patient's noncompliance with other medical treatment and regimen (7) Hyperlipidemia ICD Codes: E78.5 - Hyperlipidemia, unspecified Assessment and Plan 1.) [place] - continue lovenox, continue aspirin, coreg and statin, strongly advised her to dc tobacco; plan [facility] 07/06/17 Raimundo Jara MD July 05, 2017 19:33
[2017-07-05] MEDS: AMITRIPTYLINE HCL 10 MG TAB PO SCH (21:52)
[2017-07-05] MEDS: ATORVASTATIN 80 MG TAB PO SCH (21:52)
[2017-07-06] VITALS (12 sets, daily range): BP systolic 113–146; BP diastolic 59–98; PULSE 74–93; RESP 16–20; TEMP 97.8–98.2; O2SAT 96–99
[2017-07-06 07:00] LABS: HEMATOCRIT 37.4 % (35.0-46.0); HEMOGLOBIN 12.4 GM/DL (11.6-15.3); MEAN CELL VOLUME 90.3 FL (80.0-100.0); MEAN CORPUSCULAR HEMOGLOBIN 29.9 PG (27.0-34.0); MEAN CORPUSCULAR HGB CONC 33.1 % (32.0-36.0); MEAN PLATELET VOLUME 9.3 FL (7.0-11.0); PLATELET COUNT 139 TH/MM3 (150-450); RED BLOOD COUNT 4.15 MIL/MM3 (4.00-5.30); RED CELL DISTRIBUTION WIDTH 15.2 % (11.6-17.2)
[2017-07-06 07:26] LABS: BICARBONATE 31.2 MEQ/L (21.0-32.0); CALCIUM 8.6 MG/DL (8.5-10.1); CREATININE 0.67 MG/DL (0.50-1.00); MAGNESIUM 1.9 MG/DL (1.5-2.5)
--- NOTE | 2017-07-06 08:16 | HHI.PR ---
Subjective Remarks Follow-up unstable angina July 05, 2017-patient seen and examined, denies any chest pain. No shortness of breath. Resting comfortably in bed. by the bedside July 06, 2017-patient seen and examined, states she has some chest pain overnight. Denies any shortness of breath. N.p.o. pending [facility] Objective Vitals Vital Signs Date Time Temp Pulse Resp B/P (MAP) Pulse Ox O2 Delivery O2 Flow Rate FiO2 07/06/17 08:06 98.0 85 16 113/59 (77) 96 07/06/17 03:11 98.0 86 17 122/72 (89) 99 07/05/17 23:37 98.1 88 17 131/68 (89) 95 07/05/17 19:58 98.2 86 18 119/61 (80) 95 07/05/17 16:15 85 07/05/17 16:02 98.2 70 20 140/60 (86) 96 07/05/17 12:37 97.9 83 18 135/76 (95) 98 07/05/17 12:15 81 07/05/17 08:16 97.8 84 20 145/75 (98) 98 Result Diagram: 07/06/17 0609 07/06/17 0609 Imaging Last Impressions Thyroid Ultrasound 07/04/17 0000 Signed Impressions: Service Date/Time: Tuesday, July 04, 2017 10:58 - CONCLUSION: Thyromegaly with heterogeneous echotexture. No evidence of discrete nodule or mass. No evidence of adenopathy. Arianna James MD Chest X-Ray 07/03/17 1419 Signed Impressions: Service Date/Time: Monday, July 03, 2017 14:30 - CONCLUSION: Mild compensated cardiomegaly, no pneumothorax Jagdeep Parsons MD FACR CT Angiography 07/03/17 0000 Signed Impressions: Service Date/Time: Monday, July 03, 2017 16:50 - CONCLUSION: Prominent goiter with substernal mass component. No evidence of pulmonary embolism. Evelio Rand MD Objective Remarks GENERAL: NAD SKIN: Warm and dry. HEAD: Normocephalic. EYES: No scleral icterus. No injection or drainage. NECK: Supple, trachea midline. No JVD or lymphadenopathy. CARDIOVASCULAR: Regular rate and rhythm without murmurs, gallops, or rubs. RESPIRATORY: Breath sounds equal bilaterally. No accessory muscle use. GASTROINTESTINAL: Abdomen soft, non-tender, nondistended. MUSCULOSKELETAL: No cyanosis, or edema. BACK: Nontender without obvious deformity. No CVA tenderness. A/P Problem List: (1) Unstable angina ICD Code: I20.0 - Unstable angina (2) Hyperlipidemia ICD Code: E78.5 - Hyperlipidemia, unspecified (3) Benign hypertension ICD Code: I10 - Essential (primary) hypertension (4) Medical non-compliance ICD Code: Z91.19 - Patient's noncompliance with other medical treatment and regimen (5) Morbid obesity ICD Code: E66.01 - Morbid (severe) obesity due to excess calories Status: Acute Assessment and Plan 41-year-old female with Unstable angina ACS ruled out per protocol with serial cardiac enzyme and EKGs Chest x-ray noted without any acute finding CTA noted without any evidence of PE Continue Lovenox 100 mg subcu every 12 hours, continue beta-angel, aspirin Continue Lipitor 80 mg at bedtime Tobacco counseling cessation provided Plan for heart catheterization today Friday, July 07, 2017 Continue telemetry monitoring Thyroid goiter TSH and free T4 within normal limits thyroid ultrasound with evidence of thyromegaly without any nodule Hyperlipidemia Continue Lipitor 80 mg at bedtime Tobacco abuse Tobacco counseling cessation provided Hypertension Continue Coreg 3.125 mg twice daily Morbid obesity Advised on total lifestyle change modification DVT prophylaxis: Nicola Tate MD July 06, 2017 08:16
[2017-07-06] MEDS: CARVEDILOL 3.125 MG TAB PO SCH ×2 (08:19→20:30)
[2017-07-06] MEDS: ENOXAPARIN SODIUM 100 MG/ML SYRINGE SQ SCH (08:19)
[2017-07-06] MEDS: ASPIRIN EC 81 MG TABEC PO SCH (08:19)
[2017-07-06] MEDS: SODIUM CHLORIDE 0.9% FLUSH 10 ML FLUSH IV FLUSH SCH ×3 (08:20→20:31)
[2017-07-06] MEDS: DOCUSATE SODIUM 50 MG/SENNA 8.6 MG TAB PO SCH ×2 (08:20→20:30)
[2017-07-06] MEDS ORDERED: HEPARIN-NS/PF FLUSH BAG 2,000 ML IV FLUSH ONE (12:49)
[2017-07-06] MEDS ORDERED: MIDAZOLAM HCL 2 MG/2 ML VIAL ONE ×2 (12:49→13:26)
[2017-07-06] MEDS ORDERED: HEPARIN SODIUM - IV 10,000 UNITS/10 ML VIAL ONE ×2 (13:26→13:39)
[2017-07-06] MEDS ORDERED: ADENOSINE STRESS TEST INJ 90 MG/30 ML VIAL ONE (13:45)
[2017-07-06] MEDS ORDERED: CLOPIDOGREL 300 MG TAB ONE (13:57)
[2017-07-06] MEDS ORDERED: TIROFIBAN INFUSION INJ 250 ML IV ONE (13:57)
[2017-07-06] MEDS: TIROFIBAN INFUSION INJ 250 ML IV SCH ×2 (14:05→20:28)
[2017-07-06] MEDS ORDERED: CLOPIDOGREL 300 MG TAB PO ONE (14:15)
[2017-07-06] MEDS ORDERED: SODIUM CHLORIDE 0.9% FLUSH 10 ML FLUSH IV FLUSH PRN (14:15)
[2017-07-06] MEDS ORDERED: MISC INFORMATION XX ONE (14:15)
--- NOTE | 2017-07-06 14:16 | CATHPROC ---
[employer] HIS Report Study Information Study Number Admission Scheduled Start Study Start [id number] Jul 03 2017 5:46PM 07/06/2017 Jul 06 2017 12:50PM [place] [facility] Cardiac Catheterization Admit Source Facility Department Other [facility] - Assistant [employer] Physician and Clinical Staff Initial MD Jara, Raimundo Contracts Paralegal [place] Zepeda,RN Recorder Tatyana Khan,SOLANGE TECH2 Scrub Kimi Elena,RT(R) Procedures Performed Procedure Location (Site) Vessel Name Coronary Angiograms LCA Left Coronary Coronary Angiograms RCA Right Coronary LV Gram-hand inj. LV LV Ventricle Stent RCA Prox Right Coronary Wire insertion Fem Art (right) Femoral Art Equipment Time Advertising Job Titles Description Size Mfg Part Number Used/Scraped [id number] 12:56 ANGIO-DYNAMICS RETRACTOR, TRAXI PANNICULUS Used *[id number] TRANSDUCER, TRUWAVE [id number] 12:55 GENTILE ARTHUR * Used W/STOCKCOCK *[id number] 13:44 CORDIS/ DONALD JR 4.0 GUIDE CATHETER 55CM FR 6 Used *[id number] [id number] *[id number] [id number] *[id number] 12:55 MEDLINE INDUSTRIES PACK, CCL CUSTOM * Used *[id number] 12:55 [employer] Risk [employer] PACER PEN, SKIN DUAL W/ RULER * Used *[id number] 13:50 MEDTRONIC STENT, 4.0 12 INTEGRITY 4.0 12 Used *[id number] 13:52 [employer] MEDICAL 30 INDRA INDEFLATOR Used *[id number] 13:27 [employer] MEDICAL SHEATH, FR6.5 PRELUDE 11CM FR 6.5 038ACT Used *[id number] 12:55 [employer] MEDICAL WIRE, 3MMJ .035 180CM 180CM Used *[id number] 12:55 NAMIC MANIFOLD, 4 PORT * Used *[id number] 12:55 NYCOMED OMNIPAQUE, 350 MG, 150ML 150ML [id number] Used [id number] 12:55 [employer] BLANKET,WARM AIR CCL * Used *[id number] [id number] 12:55 TERUMO MEDICAL SHEATH, FR4 TERUMO (10CM) FR 4 Used *[id number] 13:46 [place] PRIME WIRE, VERRATA 185CM 185CM Used *[id number] 13:46 [employer]OL[place]O PRIME WIRE, VERRATA 185CM 185CM Used *[id number] Equipment Model, Serial, Lot Number and Expiration Data Description Model Number Serial Number Lot Number Expiration Date STENT, 4.0 12 INTEGRITY [id number] 01-02-2019 History: Current Medications Medication Dosage/Unit Route Frequency Last Date/Time Taken Albuterol ASA ATIVAN History: Allergies Allergy Reaction Sulfa Itching Sulfa (Sulfonamide Antibiotics) Itching History: Risk Factors Family History of Hypertension Dyslipidemia Previous VA Previous Heart Failure Premature CAD Yes Yes Yes No No Prior Valve Prior PCI Prior CABG Surgery No No No Cerebrovascular Peripheral Artery Chronic Lung On Dialysis Diabetes Disease Disease Disease No No No Yes No History: Symptoms/Diagnosis Selection Items Chest pain History: CV Disease Selection Items Known CAD History: Stress Tests Stress or Imaging Studies Performed No History: VA/CV Data Previous Cath Date 12/02/2016 History: Other Current Smoker Method Packs a Day Years Used Pack Years Yes Cigarettes 1 25 25 Labs Hgb (g/dl) Hct (%) WBC (l/cumm) Platelets (thousands) 11.60-17.00 35.00-51.00 4.00-11.00 150.00-450.00 12.0 37 9 139 Glucose (mg/dl) BUN (mg/dl) Creatinine (mg/dl) BUN:Creatinine (1:x) 74.00-106.00 7.00-18.00 0.50-1.30 10.00-20.00 120 7 0.7 10 Na (meq/l) K (meq/l) 136.00-145.00 3.50-5.10 139 3.9 INR (PTT:PT) 0.90-1.10 1.1 Troponin I (ng/ml) 0.02-0.05 0.02 Medication Medication Total Dose (Bolus/Oral) Medication Total Dosage/Unit 1% XYLOCAINE 20 mL AGGRASTAT BOLUS 75 mL FENTANYL 50 mcg HEPARIN 01055 units PLAVIX 600 mg VERSED 3 mg Medications (Bolus/Oral) Medication Time Given Dosage/Unit Administered By Reason VERSED 07/06/2017 1:13:32 PM 2 mg [place] Zepeda 2 mg VERSED given in lab by [place] Zepeda RN in Left Forearm via Peripheral IV. Ordered by Raimundo Jara. FENTANYL 07/06/2017 1:14:08 PM 12.5 mcg Katelyn, [place] 12.5 mcg FENTANYL given in lab by [place] Zepeda RN in Left Forearm via Peripheral IV. Ordered by Raimundo August. 1% XYLOCAINE 07/06/2017 1:17:25 PM 20 mL Raimundo Jara 20 mL 1% XYLOCAINE given in lab by Raimundo Jara in Right Groin via Subcutaneous. Ordered by Raimundo Lopes. FENTANYL 07/06/2017 1:18:19 PM 12.5 mcg Katelyn, [place] 12.5 mcg FENTANYL given in lab by [place] Zepeda RN in Left Forearm via Peripheral IV. Ordered by Raimundo August. FENTANYL 07/06/2017 1:20:50 PM 25 mcg Katelyn, [place] 25 mcg FENTANYL given in lab by [place] Zepeda RN in Left Forearm via Peripheral IV. Ordered by Raimundo Dunn. HEPARIN 07/06/2017 1:28:16 PM 9200 units Katelyn, [place] 9200 units HEPARIN given in lab by [place] Zepeda RN in Left Forearm via Peripheral IV. Ordered by Raimundo Carter. VERSED 07/06/2017 1:30:29 PM 1 mg Katelyn, [place] 1 mg VERSED given in lab by [place] Zepeda RN in Left Forearm via Peripheral IV. Ordered by Raimundo Jara. HEPARIN 07/06/2017 1:42:05 PM 2500 units Katelyn, [place] 2500 units HEPARIN given in lab by [place] Zepeda RN in Left Forearm via Peripheral IV. Ordered by Raimundo Carter. AGGRASTAT BOLUS 07/06/2017 2:05:06 PM 75 mL Katelyn, [place] 75 mL AGGRASTAT BOLUS given in lab by [place] Zepeda RN in Left Forearm via Peripheral IV. Ordered by Raimundo Jara. PLAVIX 07/06/2017 2:08:44 PM 600 mg Katelyn, [place] 600 mg PLAVIX given in lab by [place] Zepeda RN via Oral. Ordered by Raimundo Jara. Medication (Drip) Medication Time Given Dosage/Unit Concentration/Unit Diluent (ml) Solution AGGRASTAT DRIP 07/06/2017 2:10:10 PM 0.15 mcg/kg/min 12.5 mg 250 NaCl .9 0.15 mcg/kg/min AGGRASTAT DRIP given in lab by [place] Zepeda RN in Left Forearm via Peripheral IV. Pu mp/Drip Flow = 27.54 ml/hr using NaCl .9 with a concentration of 12.5 mg in 250 ml. Ordered by Raimundo Jara. IV Solutions 07/06/2017 12:50:32 PM 0 mL (IV) 500 NaCl .9 IV Solutions given in lab by [place] Zepeda RN in Left Forearm via Peripheral IV. Pump/Drip Flow = 30 ml/hr using NaCl .9. Ordered by Raimundo Jara. Reason: As per physicians verbal order. Initial Case Assessment Cardiovascular HR Rhythm NIBP Chest Pain 76 sr 136/88 0 Edema Present Skin color Skin None Normal Warm Dry Circulatory - Right Pulses Dorsalis Pedis Femoral 1 2 Scale (0,1,2,3,4,d) Circulatory - Left Pulses Dorsalis Pedis Femoral 1 2 Scale (0,1,2,3,4,d) Circulatory - Lower Extremities Color Lower Right Color Lower Left Normal Normal Neurological State Oriented to time-place- Alert Moves all extremities person Respiration - General Respiration Rate SpO2 (%) (B/min) 18 96 Final Case Assessment Cardiovascular HR Rhythm NIBP Chest Pain 80 SR 133/86 0 Circulatory - Right Pulses Dorsalis Pedis Femoral 1 2 Scale (0,1,2,3,4,d) Circulatory - Left Pulses Dorsalis Pedis Femoral 1 2 Scale (0,1,2,3,4,d) Neurological State Oriented to time-place- Alert Moves all extremities person Respiration - General Respiration Rate SpO2 (%) (B/min) 15 96 Chronological Log Time Study Chronological Log 12:46:44 Patient arrived via Bed. 12:46:48 Patient Name, D.O.B, / Armband Verified By R.N. 12:46:51 Consent signed by the physician and the patient and verified by the Assistant [employer] staff. 12:46:54 Pre-op and post- op instructions given; patient acknowledges understanding of instructions. 12:50:00 Verbal Stimulation=2 Physical Stimulation=2 Airway=2 Respiration=2 TOTAL=8. (0=absent, 1=li mited, 2=present) 12:50:05 Patient has been NPO for More than 6Hrs. 12:50:07 Skin Breakdown- none per pt 12:50:08 Patient Warmer Placed on the Table. 12:50:10 Disposable Defibrillator Pads Placed On Patient. 12:50:12 Francisco Prominences Protected 12:50:30 A # 20 IV was noted in the Forearm (left). Grade = 0 IV Solutions given in lab by [place] Zepeda RN in Left Forearm via Peripheral IV. Pump/Drip Flow = 30 ml/hr using NaCl 12:50:32 .9. Ordered by Raimundo Jara. Reason: As per physicians verbal order. 12:50:36 History and physical on the chart or being dictated. Assessment: Initial Case, HR=76 BPM, Rhythm=sr, ZEMK=145/88 mmhg, Chest Pain=0, Edema=None, Col or=Normal, Skin = Warm, Dry Right Pulses: Hubert Ped=1, Femoral=2 Left Pulses: Hubert Ped=1, Femoral=2 12:55:19 Lower Right Extremities: Color=Normal Lower Left Extremities: Color=Normal Neurological: State=Alert, Ox3, GORDON Respiration: Resp=18 B/min, SpO2=96 % Vitals capture started with the following parameters, Patient=Adult, Interval=5 min, Initial Pr nrfphr=570 mmHg, 12:55:22 Deflation Rate=5 mmHg, Cuff placed on Left Arm 12:56:31 HR=76 bpm, PRVK=329/88 mmhg, SpO2=97.0 %, Resp=24 B/min, Pain=0, Prasanna=10, Briggs=2 13:01:03 HR=78 bpm, NIBP=96/65 mmhg, SpO2=95.0 %, Resp=21 B/min 13:01:48 Bilateral groins prepped with 2% chlorhexidine, and draped after a 3 minute waiting time. 13:03:51 Pressure channel 1 zeroed. 13:05:01 paged 13:05:03 MD responded 13:06:27 HR=79 bpm, KVSV=423/83 mmhg, SpO2=96.0 %, Resp=20 B/min 13:10:38 MD arrived. 13:11:02 HR=80 bpm, HVTX=970/77 mmhg, SpO2=97.0 %, Resp=19 B/min 13:13:32 2 mg VERSED given in lab by Katelyn, [place], RN in Left Forearm via Peripheral IV. Ordered by Raimundo Jara. 13:14:08 12.5 mcg FENTANYL given in lab by [place] Zepeda RN in Left Forearm via Peripheral IV. Order ed by Raimundo Jara. Time Out. Correct patient, correct procedure, correct physician, power injector not loaded with contrast with surgical 13:16:09 team present. Time Out Concurred by MD and individual staff in procedure. 13:16:37 HR=82 bpm, UPAW=512/93 mmhg, SpO2=96.0 %, Resp=20 B/min 13:17:25 Case Start 20 mL 1% XYLOCAINE given in lab by Raimundo Jara in Right Groin via Subcutaneous. Ordered by Marek 13:17:25 Raimundo. 13:18:19 12.5 mcg FENTANYL given in lab by [place] Zepeda RN in Left Forearm via Peripheral IV. Order ed by Raimundo Jara. 13:19:38 Access site was Right Femoral Artery. 13:19:44 A SHEATH, FR4 TERUMO (10CM) FR 4 was advanced into the Fem Art (right) using the Percutaneo us technique. A JR 4.0 INFINITI CATHETER FR 4 was advanced over a wire. OMNIPAQUE, 350 MG, 150ML 150ML was us ed for 13:20:32 injections. 13:20:50 25 mcg FENTANYL given in lab by [place] Zepeda RN in Left Forearm via Peripheral IV. Ordered by Raimundo Jara. 13:20:54 Reference ECG taken Recorded Pressure: LV, HR=80, Condition=Condition 1 13:20:55 (Left Ventricle) LV 115/14/27 13:20:59 The LV was manually injected with 10 cc's and visualized. OMNIPAQUE, 350 MG, 150ML 150ML us ed. 13:21:02 HR=80 bpm, DOBJ=719/83 mmhg, SpO2=97.0 %, Resp=15 B/min Recorded Pressure: LV, Ao, HR=83, Condition=Condition 1 13:21:13 (Left Ventricle) LV 116/5/23, (Aorta) Ao 118/81/99 13:21:43 The RCA was injected and visualized at various angles. OMNIPAQUE, 350 MG, 150ML 150ML used . 13:22:38 Catheter was removed A JL 4.0 INFINITI CATHETER FR 4 was advanced over a wire. OMNIPAQUE, 350 MG, 150ML 150ML was us ed for 13:22:40 injections. 13:24:32 The LCA was injected and visualized at various angles. OMNIPAQUE, 350 MG, 150ML 150ML used . 13:25:59 HR=83 bpm, SXCA=166/91 mmhg, SpO2=95.0 %, Resp=18 B/min 13:26:07 Catheter was removed A SHEATH, FR6.5 PRELUDE 11CM FR 6.5 was exchanged in the Fem Art (right). This was necessary in order to 13:26:34 accomodate a larger catheter. 13:28:16 9200 units HEPARIN given in lab by [place] Zepeda RN in Left Forearm via Peripheral IV. Orde red by Raimundo Jara. 13:30:29 1 mg VERSED given in lab by [place] Zepeda RN in Left Forearm via Peripheral IV. Ordered by Raimundo Jara. 13:31:00 HR=86 bpm, XRUT=985/87 mmhg, SpO2=92.0 %, Resp=21 B/min 13:33:27 Activated Clotting Time Drawn 13:36:03 HR=81 bpm, POWT=617/82 mmhg, SpO2=95.0 %, Resp=18 B/min 13:38:55 ACT (Normal Range 90-180) = 242 13:41:06 HR=80 bpm, FAFT=250/83 mmhg, SpO2=96.0 %, Resp=19 B/min 13:42:05 2500 units HEPARIN given in lab by [place] Zepeda RN in Left Forearm via Peripheral IV. Orde red by Raimundo Jara. A JR 4.0 GUIDE CATHETER 55CM FR 6 was advanced over a wire. OMNIPAQUE, 350 MG, 150ML 150ML was used for 13:43:36 injections. 13:45:17 A PRIME WIRE, VERRATA 185CM 185CM was inserted via Fem Art (right). 13:46:25 HR=81 bpm, JZSA=268/91 mmhg, SpO2=95.0 %, Resp=19 B/min Recorded Pressure: Ao, HR=82, Condition=Condition 1 13:47:41 (Aorta) Ao 112/75/94 13:48:09 Unable to do FFR/IFR An STENT, 4.0 12 INTEGRITY 4.0 12 Bare Metal Stent was inserted through a JR 4.0 GUIDE CATHETER 55CM FR 6 13:49:08 over a PRIME WIRE, VERRATA 185CM 185CM. 13:51:00 HR=75 bpm, FGMS=479/86 mmhg, SpO2=93 %, Resp=17 B/min A STENT, 4.0 12 INTEGRITY 4.0 12 was deployed using a 30 INDRA INDEFLATOR at 16 atmospheres for 1 5 seconds in 13:51:18 the RCA Prox. 13:51:50 Delivery device removed 13:52:33 The PRIME WIRE, VERRATA 185CM 185CM was removed. 13:52:46 Case End Assessment: Final Case, HR=80 BPM, Rhythm=SR, LKUB=861/86 mmhg, Chest Pain=0 Right Pulses: Hubert Ped=1, Femoral=2 13:53:28 Left Pulses: Hubert Ped=1, Femoral=2 Neurological: State=Alert, Ox3, GORDON Respiration: Resp=15 B/min, SpO2=96 % 13:54:27 In the Fem Art (right) the SHEATH, FR6.5 PRELUDE 11CM FR 6.[address] by Kimi Elena, RT(R). 13:54:42 Activated Clotting Time Drawn 13:56:40 HR=80 bpm, GBZM=460/87 mmhg, SpO2=94.0 %, Resp=19 B/min 13:59:40 ACT (Normal Range 90-180) = 289 14:01:04 HR=78 bpm, CVPK=983/69 mmhg, SpO2=96.0 %, Resp=14 B/min 75 mL AGGRASTAT BOLUS given in lab by [place] Zepeda, RN in Left Forearm via Peripheral IV. Order ed by Marek, 14:05:06 Raimundo. 14:05:23 A-LINE CALLED FOR 14:05:38 Vitals capture stopped. 14:05:40 Sterile dressing applied to site 14:05:41 No case complications noted. 14:05:42 Cine recording checked. 14:05:43 Bedside Report will be given. 14:05:45 Implantable Device card placed in patient's chart. 14:05:48 Cine recording checked. 14:05:51 Patient moved to BED 14:08:44 600 mg PLAVIX given in lab by [place] Zepeda, RN via Oral. Ordered by Raimundo Jara. 0.15 mcg/kg/min AGGRASTAT DRIP given in lab by [place] Zepeda RN in Left Forearm via Peripheral IV. Pump/Drip Flow 14:10:10 = 27.54 ml/hr using NaCl .9 with a concentration of 12.5 mg in 250 ml. Ordered by Zak Jara. 14:12:16 Patient transported to DOCU. End Study - Contrast Media Used In Study Contrast Total Opened (mL) Total Used (mL) Total Wasted (mL) Omnipaque 70 70 0 End Study - Maximum Contrast Load Max Contrast Load (mL) 1092.9 End Study - Radiation Exposure Fluoro Time (minutes) 4.9 End Study - Patient Disposition Complications Transferred To Interventional Outcome No Telemetry Bed successful
--- NOTE | 2017-07-06 14:46 | MA ---
cc: Raimundo Jara MD DATE: 07/06/2017 PROCEDURE PERFORMED: Left heart catheterization, left ventriculography, coronary angiography, attempted FFR of the proximal right coronary artery, direct PCI bare metal stent of the proximal mid RCA. INDICATIONS FOR PROCEDURE: Unstable angina, [place] Cardiovascular Society class IV angina, coronary artery disease, tobacco use, medical noncompliance with statin. PROCEDURE: The patient was brought to the cardiac catheterization laboratory, prepped and draped in the usual sterile fashion. 10 mL of 1% lidocaine was used to locally anesthetize the right common femoral artery. A 4-[place] sheath was placed in right common femoral artery. A 4-[place] JR4, JL4 catheters were used to perform left and right coronary angiography, left ventriculography. FINDINGS: LV pressures: 115/20-23, ejection fraction 60%. Right coronary artery is dominant. There is 75% stenosis in the proximal segment. The distal right has diffuse mild disease up to 20-30% angiographically. The right PDA is moderate to large size vessel. Reference vessel diameter of at least 3 mm. Proximal 20% smooth stenosis. Right posterolateral artery is a medium size vessel, 2.5 mm reference vessel diameter. No significant obstructive disease. The left main coronary artery has no significant disease angiographically. There is a medium size ramus intermedius vessel which has no significant disease angiographically. Left circumflex vessel has no significant disease angiographically. First obtuse marginal vessel comes off the proximal, mid AV groove left circumflex vessel and has no significant disease angiographically, reference vessel diameter 3 mm in the proximal segment has a proximal bifurcation. AV groove left circumflex vessel terminates into a small distal posterolateral artery which has a proximal bifurcation. Both branches of which are about 1.5 mm with no significant disease angiographically. LAD is transapical. There is mild to moderate disease in the proximal segment up to 30-40% angiographically, mild disease in the mid segment up to 20-30% angiographically. The first diagonal artery is a small vessel, reference vessel diameter of 2-2.25 mm. It has an ostial 80% stenosis. Has about a 30 degree angulation off the LAD. A 6-[place] sheath was exchanged for a 4-[place] sheath. 70 units per kilo of heparin was given. ACT was 242. An additional 2500 units of heparin was given. ACT pending at the time of dictation. Multiple attempts were made to perform IFR FFR of the proximal right coronary artery. We could not get a pressure waveform despite using 2 different wires and 2 different monitors. As the patient had multiple comorbidities, morbidly obese with COPD and having difficulty following commands due to conscious sedation, with recurrent admissions for the angina, I did think it was medically necessary to proceed straight to PCI of the proximal right coronary artery despite not having any FFR IFR. Therefore, a 4.0 12 Integrity stent was used to directly stent the lesion, one inflation, 16 atmospheres for 20 seconds. The stenosis went from 75% to 0% with YUNG 3 flow. CONCLUSION: 1. Unstable angina, [place] Cardiovascular Society class IV angina, questionable culprit lesion being either the proximal first diagonal artery and/or the proximal right coronary artery as detailed above. 2. Otherwise, mild to moderate 3-vessel coronary disease in a right dominant system. 3. Normal LV systolic function, ejection fraction 60%. 4. Successful direct PCI bare metal stent of the proximal mid right coronary artery from 75% to 0% with YUNG 3 flow. 5. Recommend 600 mg p.o. Plavix, 75 mg a day for 12-15 months. Aspirin 162 mg daily indefinitely. Aggrastat drip per protocol. Restart the patient's Lipitor at 80 mg at bedtime. Strongly recommend smoking cessation, weight loss, and optimal nutrition. MD MARY Mcmanus/CYNTHIA , 02:02 PM , 02:45 PM
[2017-07-06] MEDS ORDERED: IOHEXOL 350 MG/ML 100 ML BTL (for Cath Lab) OTHER ONE (15:26)
[2017-07-06] MEDS: AMITRIPTYLINE HCL 10 MG TAB PO SCH (20:29)
[2017-07-06] MEDS: ATORVASTATIN 80 MG TAB PO SCH (20:30)
[2017-07-06] MEDS: LORazepam 1 MG TAB PO PRN (20:30)
[2017-07-07] VITALS (17 sets, daily range): BP systolic 134–159; BP diastolic 78–92; PULSE 76–94; RESP 20; TEMP 97.5–98.4; O2SAT 96–97
[2017-07-07] MEDS: TIROFIBAN INFUSION INJ 250 ML IV SCH (05:46)
[2017-07-07 06:45] LABS: AUTOMATED NEUTROPHIL # 5.4 TH/MM3 (1.8-7.7); BASOPHIL # 0.1 TH/MM3 (0-0.2); BASOPHIL % 0.7 % (0.0-2.0); EOSINOPHIL # 0.2 TH/MM3 (0-0.4); EOSINOPHIL % 2.8 % (0.0-4.0); HEMATOCRIT 35.9 % (35.0-46.0); HEMOGLOBIN 11.9 GM/DL (11.6-15.3); LYMPH % 26.3 % (9.0-44.0); LYMPHOCYTE # 2.3 TH/MM3 (1.0-4.8); MEAN CELL VOLUME 89.9 FL (80.0-100.0); MEAN CORPUSCULAR HEMOGLOBIN 29.9 PG (27.0-34.0); MEAN CORPUSCULAR HGB CONC 33.3 % (32.0-36.0); MEAN PLATELET VOLUME 9.1 FL (7.0-11.0); MONO % 8.6 % (0.0-8.0); MONOCYTE # 0.7 TH/MM3 (0-0.9); NEUT % 61.6 % (16.0-70.0); PLATELET COUNT 141 TH/MM3 (150-450); RED BLOOD COUNT 3.99 MIL/MM3 (4.00-5.30); RED CELL DISTRIBUTION WIDTH 15.4 % (11.6-17.2); WHITE BLOOD COUNT 8.8 TH/MM3 (4.0-11.0)
[2017-07-07 07:38] LABS: BICARBONATE 26.3 MEQ/L (21.0-32.0); CALCIUM 8.4 MG/DL (8.5-10.1); CREATININE 0.72 MG/DL (0.50-1.00)
[2017-07-07] MEDS: CARVEDILOL 3.125 MG TAB PO SCH (08:41)
[2017-07-07] MEDS: DOCUSATE SODIUM 50 MG/SENNA 8.6 MG TAB PO SCH (08:41)
[2017-07-07] MEDS: SODIUM CHLORIDE 0.9% FLUSH 10 ML FLUSH IV FLUSH SCH ×2 (08:42→08:43)
[2017-07-07] MEDS ORDERED: RAMIPRIL 2.5 MG CAP PO SCH (09:00)
[2017-07-07] MEDS ORDERED: CLOPIDOGREL 75 MG TAB PO SCH (09:00)
[2017-07-07] MEDS ORDERED: ASPIRIN 81 MG CHEW TAB PO SCH (09:00)
--- NOTE | 2017-07-07 12:49 | HHI.PR ---
Subjective Remarks Patient sitting up in bed. Appears comfortable. Denies any chest pain or shortness of breath. Denies nausea or vomiting. feels like going home. Objective Vital Signs Date Time Temp Pulse Resp B/P (MAP) Pulse Ox O2 Delivery O2 Flow Rate FiO2 07/07/17 12:35 76 07/07/17 12:28 98.4 85 20 134/79 (97) 97 07/07/17 11:06 80 07/07/17 10:25 78 07/07/17 09:00 94 07/07/17 08:07 86 07/07/17 08:04 97.5 83 20 159/78 (105) 96 07/07/17 07:18 84 07/07/17 06:00 82 07/07/17 05:00 82 07/07/17 04:00 82 07/07/17 03:05 98.0 89 20 148/92 (110) 97 07/07/17 03:00 81 07/07/17 02:00 84 07/07/17 01:00 80 07/07/17 00:30 20 07/07/17 00:00 80 07/06/17 23:33 98.1 93 20 132/98 (109) 98 07/06/17 23:00 80 07/06/17 22:00 78 07/06/17 21:00 74 07/06/17 20:13 98.2 86 18 146/79 (101) 97 07/06/17 20:00 76 07/06/17 19:33 140/67 (91) 07/06/17 19:31 18 07/06/17 19:00 80 07/06/17 15:15 97.8 75 16 142/75 (97) 99 07/06/17 15:00 75 I/O 07/06/17 07/06/17 07/06/17 07/07/17 07/07/17 07/07/17 07:00 15:00 23:00 07:00 15:00 23:00 Intake Total 480 ml 1036 ml Output Total 300 ml 575 ml Balance 180 ml 461 ml Intake Oral 480 ml 480 ml IV Total 556 ml Output Urine Total 300 ml 575 ml Result Diagram: 07/07/17 0459 07/07/17 0459 Objective Remarks GENERAL: Patient sitting up in chair bedside. Appears comfortable. Alert and oriented 4. SKIN: Warm and dry. HEAD: Normocephalic. EYES: No scleral icterus. No injection or drainage. NECK: Supple, trachea midline. No JVD. CARDIOVASCULAR: Regular rate and rhythm without murmurs, gallops, or rubs. RESPIRATORY: Breath sounds equal bilaterally. No accessory muscle use. GASTROINTESTINAL: Abdomen soft, non-tender, nondistended. MUSCULOSKELETAL: No cyanosis. Trace edema BACK: Nontender without obvious deformity. No CVA tenderness. A/P Assessment and Plan 41-year-old female with Unstable angina ACS ruled out per protocol with serial cardiac enzyme and EKGs Chest x-ray noted without any acute finding CTA noted without any evidence of PE Continue Lovenox 100 mg subcu every 12 hours, continue beta-angel, aspirin Continue Lipitor 80 mg at bedtime Tobacco counseling cessation provided Plan for heart catheterization today Friday, July 07, 2017 Continue telemetry monitoring = S post catheterization. Pending cardiology clearance. Plavix. Follow-up with cardiology. Thyroid goiter TSH and free T4 within normal limits thyroid ultrasound with evidence of thyromegaly without any nodule Hyperlipidemia Continue Lipitor 80 mg at bedtime Tobacco abuse Tobacco counseling cessation provided Hypertension Continue Coreg 3.125 mg twice daily Morbid obesity Advised on total lifestyle change modification DVT prophylaxis: Lovenox Discharge Planning Discharge home when cleared by cardiology. Servando Hilton MD July 07, 2017 12:49
[2017-07-07] MEDS ORDERED: CARV3.125 PO (12:52)
[2017-07-07] MEDS ORDERED: ATOR80TA45 PO (12:52)
[2017-07-07] MEDS ORDERED: PLAV75TA29 PO (12:52)
[2017-07-07] MEDS ORDERED: RAMI2.5C PO (12:52)
--- NOTE | 2017-07-07 12:56 | HHI.DS ---
Discharge Summary Admission Date July 06, 2017 at 14:06 Discharge Date: July 07, 2017 Admitting Diagnosis Chest pain, goiter, morbid obese (1) Unstable angina ICD Code: I20.0 - Unstable angina (2) Hyperlipidemia ICD Code: E78.5 - Hyperlipidemia, unspecified (3) Benign hypertension ICD Code: I10 - Essential (primary) hypertension (4) Medical non-compliance ICD Code: Z91.19 - Patient's noncompliance with other medical treatment and regimen (5) Morbid obesity ICD Code: E66.01 - Morbid (severe) obesity due to excess calories Status: Acute Procedures Catheterization with stenting. Please see report. Brief History - From Admission 41-year-old female for past medical history of CAD, hyperlipidemia, morbid obesity and known history of 60% stenosis in the RCA by [facility] December 02, 2016, initially presented to [facility] for evaluation of an acute onset of substernal chest pain described as tightness with radiation to the intrascapular area without any associated diaphoresis. Patient has been noncompliant with medical care. She denies any cough. During my exam, patient was mostly concerned about thyroid goiter and stated the reason why she was transferred to [facility]. She has no GI bleed. She ruled out initially with cardiac enzyme and EKGs. Case discussed with Dr. Jara, cardiology CBC/BMP: 07/07/17 0459 07/07/17 0459 Significant Findings Laboratory Tests Test 07/04/17 13:14 07/05/17 03:38 07/06/17 06:09 07/07/17 04:59 Troponin I LESS THAN 0.02 NG/ML LESS THAN 0.02 NG/ML Platelet Count 139 TH/MM3 (150-450) 141 TH/MM3 (150-450) Random Glucose 120 MG/DL (74-106) 129 MG/DL (74-106) Red Blood Count 3.99 MIL/MM3 (4.00-5.30) Monocytes (%) (Auto) 8.6 % (0.0-8.0) Calcium Level 8.4 MG/DL (8.5-10.1) Estimat Glomerular Filtration Rate 88 ML/MIN (>89) Imaging Last Impressions Thyroid Ultrasound 07/04/17 0000 Signed Impressions: Service Date/Time: Tuesday, July 04, 2017 10:58 - CONCLUSION: Thyromegaly with heterogeneous echotexture. No evidence of discrete nodule or mass. No evidence of adenopathy. Arianna James MD Chest X-Ray 07/03/17 1419 Signed Impressions: Service Date/Time: Monday, July 03, 2017 14:30 - CONCLUSION: Mild compensated cardiomegaly, no pneumothorax Jagdeep Parsons MD FACR CT Angiography 07/03/17 0000 Signed Impressions: Service Date/Time: Monday, July 03, 2017 16:50 - CONCLUSION: Prominent goiter with substernal mass component. No evidence of pulmonary embolism. Evelio Rand MD PE at Discharge GENERAL: NAD SKIN: Warm and dry. HEAD: Normocephalic. EYES: No scleral icterus. No injection or drainage. NECK: Supple, trachea midline. No JVD or lymphadenopathy. CARDIOVASCULAR: Regular rate and rhythm without murmurs, gallops, or rubs. RESPIRATORY: Breath sounds equal bilaterally. No accessory muscle use. GASTROINTESTINAL: Abdomen soft, non-tender, nondistended. MUSCULOSKELETAL: No cyanosis, or edema. BACK: Nontender without obvious deformity. No CVA tenderness. Hospital Course 41-year-old female with Unstable angina ACS ruled out per protocol with serial cardiac enzyme and EKGs Chest x-ray noted without any acute finding CTA noted without any evidence of PE Continue Lovenox 100 mg subcu every 12 hours, continue beta-angel, aspirin Continue Lipitor 80 mg at bedtime Tobacco counseling cessation provided Plan for heart catheterization today Friday, July 07, 2017 Continue telemetry monitoring = S post catheterization. Pending cardiology clearance. Plavix. Follow-up with cardiology. Thyroid goiter TSH and free T4 within normal limits thyroid ultrasound with evidence of thyromegaly without any nodule Hyperlipidemia Continue Lipitor 80 mg at bedtime Tobacco abuse Tobacco counseling cessation provided Hypertension Continue Coreg 3.125 mg twice daily Morbid obesity Advised on total lifestyle change modification DVT prophylaxis: Lovenox Discharge Planning Discharge home when cleared by cardiology. Pt Condition on Discharge: Good Discharge Disposition: Discharge Home Discharge Time: <= 30 minutes Discharge Instructions DIET: Follow Instructions for: Heart Healthy Diet Activities you can perform: Regular-No Restrictions Follow up Referrals: Cardiology - 1 Week with Raimundo Jara MD PCP Follow-up - 2-3 Days New Medications: Atorvastatin (Atorvastatin) 80 Mg Tab 80 MG PO HS for Cholesterol Management for 30 Days, TAB Carvedilol (Coreg) 3.125 Mg Tab 3.125 MG PO Q12HR for Blood Pressure Management for 30 Days, TAB Clopidogrel (Plavix) 75 Mg Tab 75 MG PO DAILY for Blood Clot Prevention for 30 Days, #30 TAB Ramipril (Ramipril) 2.5 Mg Cap 2.5 MG PO DAILY for Blood Pressure Management for 30 Days, #30 CAP Continued Medications: Albuterol 8.5 GM Inh (Proair Hfa 8.5 GM Inh) 90 Mcg/Act Aer 2 PUFF INH Q4-6H PRN for SHORTNESS OF BREATH, #1 INHALER 0 Refills 108 mcg/actuation Amitriptyline (Amitriptyline) 10 Mg Tab 10 MG PO HS, TAB Apremilast (Otezla) 30 Mg Tab 1 TAB PO DAILY for PSORIATIC ARTHRITIS Aspirin DR (Aspirin DR) 81 Mg Tabdr 81 MG PO DAILY, TAB 0 Refills Cyclobenzaprine (Flexeril) 10 Mg Tab 10 MG PO TID for Muscle Spasm, #90 TAB 0 Refills Lorazepam (Ativan) 1 Mg Tab 1 MG PO DAILY PRN for ANXIETY AND/OR AGITATION, TAB 0 Refills Oxycodone-Acetaminophen (Percocet) 10-325 mg Tab 1 TAB PO Q6H PRN for PAIN, TAB 0 Refills [Research med] () Discontinued Medications: Ibuprofen (Ibuprofen) 800 Mg Tab 800 MG PO Q8H PRN for Pain/Inflammation, #60 TAB 0 Refills Servando Hilton MD July 07, 2017 12:56
--- NOTE | 2017-07-07 18:10 | EKG ---
Date Performed: 07/07/2017 Time Performed: 06:23:18 PTAGE: 41 years EKG: Sinus rhythm Possible inferior infarct - age undetermined QRS changes V3/V4 may be due to LVH but cannot rule out anterior infarct Low QRS voltages in precordial leads Abnormal ECG PREVIOUS TRACING : 07/04/2017 02.11 Since the previous tracing, no significant change noted DOCTOR: Frannie Wiseman Interpretating Date/Time 07/07/2017 18:09:46
== END 2017-07-07 13:38 | disposition home or self-care (01) | DRG 249 ==
LOC: PHED 13:23 → PHEDA 17:46 → NEPGCP 21:29 → HCIS 07-06 12:43 → OBSVTOIN 07-06 14:06 → HCIS 07-06 15:23
PROVIDERS: ADMIT Internal Medicine; ATTEND Internal Medicine
PROC: 4A023N7 Measurement of Cardiac Sampling and Pressure, Left Heart, Percutaneous Approach (ICD-10-PCS; 2017-07-06)
PROC: B2151ZZ Fluoroscopy of Left Heart using Low Osmolar Contrast (ICD-10-PCS; 2017-07-06)
PROC: B2111ZZ Fluoroscopy of Multiple Coronary Arteries using Low Osmolar Contrast (ICD-10-PCS; 2017-07-06)
PROC: 02703DZ Dilation of Coronary Artery, One Artery with Intraluminal Device, Percutaneous Approach (ICD-10-PCS; principal; 2017-07-06 12:30)
DX: I25.110 Atherosclerotic heart disease of native coronary artery with unstable angina pectoris (principal); Z68.44 Body mass index [BMI] 60.0-69.9, adult; I10 Essential (primary) hypertension; E66.01 Morbid (severe) obesity due to excess calories; E78.5 Hyperlipidemia, unspecified; E78.00 Pure hypercholesterolemia, unspecified; M79.7 Fibromyalgia; E28.2 Polycystic ovarian syndrome; E04.9 Nontoxic goiter, unspecified; J44.9 Chronic obstructive pulmonary disease, unspecified; M19.90 Unspecified osteoarthritis, unspecified site; F17.200 Nicotine dependence, unspecified, uncomplicated; F41.9 Anxiety disorder, unspecified; Z88.2 Allergy status to sulfonamides; Z91.19 Patient's noncompliance with other medical treatment and regimen
CPT/HCPCS: 71046; 71275; 76536; 76937; 80048; 80053; 80061; 82550; 83735; 84443; 84484; 85002; 85025; 85027; 85379; 85610; 85730; 92928; 93005; 93458; 96372; 96374; 96375; 99152; 99153; C1769; C1876; C1887; C1893; G0378; J0153; J1644; J1650; J1885; J2250; J2270; J3010; J3246; Q9967

== ENCOUNTER 2017-07-08 20:15 | Inpatient (IN) | payer BC ==
[~2017-07-08] VITALS: Ht 160 cm; Wt 175.0 kg
[~2017-07-08 20:15] MED LIST changes: +ALBUAER3 INH; +ATOR80TA45 PO; +CARV3.125 PO; -IBUP1TAB7 PO; +PLAV75TA29 PO; +RAMI2.5C PO; +[UNRECOGNIZED DRUG - OTHER]
[2017-07-08 20:31] VITALS: BP 136/90; PULSE 90; RESP 20; TEMP 98.4; O2SAT 100
[2017-07-08] MEDS ORDERED: ONDANSETRON HCL 4 MG/2 ML VIAL IV PUSH ONE (20:45)
[2017-07-08] MEDS ORDERED: MORPHINE SULFATE 4 MG/ML INJ IV PUSH ONE (20:45)
[2017-07-08 20:48] LABS: AUTOMATED NEUTROPHIL # 7.1 TH/MM3 (1.8-7.7); BASOPHIL # 0.5 TH/MM3 (0-0.2); BASOPHIL % 4.2 % (0.0-2.0); EOSINOPHIL # 0.3 TH/MM3 (0-0.4); EOSINOPHIL % 2.6 % (0.0-4.0); HEMATOCRIT 34.5 % (35.0-46.0); HEMOGLOBIN 11.8 GM/DL (11.6-15.3); LYMPH % 23.9 % (9.0-44.0); LYMPHOCYTE # 2.7 TH/MM3 (1.0-4.8); MEAN CELL VOLUME 87.5 FL (80.0-100.0); MEAN CORPUSCULAR HEMOGLOBIN 29.9 PG (27.0-34.0); MEAN CORPUSCULAR HGB CONC 34.2 % (32.0-36.0); MEAN PLATELET VOLUME 8.8 FL (7.0-11.0); MONO % 6.4 % (0.0-8.0); MONOCYTE # 0.7 TH/MM3 (0-0.9); NEUT % 62.9 % (16.0-70.0); PLATELET COUNT 150 TH/MM3 (150-450); RED BLOOD COUNT 3.95 MIL/MM3 (4.00-5.30); RED CELL DISTRIBUTION WIDTH 14.4 % (11.6-17.2); WHITE BLOOD COUNT 11.3 TH/MM3 (4.0-11.0)
--- NOTE | 2017-07-08 20:56 | PD ---
HPI Chief Complaint: Pain: Acute or Chronic Time Seen by Provider: 20:28 Travel History International Travel<30 days: No Contact w/Intl Traveler<30days: No Traveled to known affect area: No History of Present Illness HPI 41-year-old female presents to the emergency department for evaluation of sudden development of right groin hematoma after forceful coughing. Patient underwent cardiac catheterization 07/08/17 by her aegis console operator track Dr. Jara. Patient had stent placed. Patient is on Plavix and aspirin. Patient states this evening just prior to arrival to the emergency department while sitting at her dinner table she started to become choked and coughed forcefully and shortly after coughing forcefully she felt discomfort in her right groin. Patient states she was seen by her aegis console operator track today and the post cardiac cath site was soft and only small bruising but after forceful coughing noticed a large area of bruising and increased pain. Patient is able to ambulate from her home to her car to get to the emergency department. Patient denies any paresthesias or pain extending down to the lower leg. Patient rates groin pain as severe. Patient has no bleeding from the site. Patient denies any abdominal pain or chest pain. PFSH Past Medical History Narrative Medical Plavix/aspirin therapy, CAD, cardiac catheterization with stent placement, dyslipidemia COPD hypertension migraines appendectomy hysterectomy cardiac catheterization; positive tobacco use; nursing notes reviewed Hx Anticoagulant Therapy: Yes (plavix) Arthritis: Yes (psoriatic) Anxiety: Yes Cancer: No Cardiovascular Problems: Yes High Cholesterol: Yes Chest Pain: Yes COPD: Yes Diabetes: No Diminished Hearing: No Endocrine: No Fibromyalgia: Yes Gastrointestinal Disorders: No Glaucoma: No Genitourinary: No Headaches: Yes Hepatitis: No Hiatal Hernia: No Hypertension: Yes Musculoskeletal: Yes Neurologic: No Psychiatric: No Reproductive: Yes (PCOS) Respiratory: Yes (dyspnea) Integumentary: No Immunizations Current: No Migraines: Yes Thyroid Disease: No Triglycerides - High: Yes Influenza Vaccination: Yes ?: Not : 2 Miscarriage: 2 Ovarian Cysts: Yes (POLYCYSTIC OVARY DISEASE) Past Surgical History Abdominal Surgery: Yes (APPY) AICD: No Appendectomy: Yes Cardiac Surgery: Yes (HEART CATH ) Hysterectomy: Yes Joint Replacement: No Pacemaker: No Thoracic Surgery: No Social History Alcohol Use: Yes ("VERY RARELY") Tobacco Use: Yes (3/4 PPD) Substance Use: No (PT DENIES ) Allergies-Medications (Allergen,Severity, Reaction): Coded Allergies: Sulfa (Sulfonamide Antibiotics) (Unverified Allergy, Mild, Itching, ) Reported Meds & Prescriptions Reported Meds & Active Scripts Active Atorvastatin (Atorvastatin Calcium) 80 Mg Tab 80 Mg PO HS 30 Days Plavix (Clopidogrel Bisulfate) 75 Mg Tab 75 Mg PO DAILY 30 Days Coreg (Carvedilol) 3.125 Mg Tab 3.125 Mg PO Q12HR 30 Days Ramipril 2.5 Mg Cap 2.5 Mg PO DAILY 30 Days Reported Proair Hfa 8.5 GM Inh (Albuterol Sulfate) 90 Mcg/Act Aer 2 Puff INH Q4-6H PRN 108 mcg/actuation [Research med] Amitriptyline (Amitriptyline HCl) 10 Mg Tab 10 Mg PO HS Aspirin DR (Aspirin) 81 Mg Tabdr 81 Mg PO DAILY Flexeril (Cyclobenzaprine HCl) 10 Mg Tab 10 Mg PO TID Otezla (Apremilast) 30 Mg Tab 1 Tab PO DAILY Percocet (Oxycodone-Acetaminophen) 10-325 mg Tab 1 Tab PO Q6H PRN Ativan (Lorazepam) 1 Mg Tab 1 Mg PO DAILY PRN Review of Systems Except as stated in HPI: all other systems reviewed are Neg Physical Exam Narrative GENERAL: Well-developed well-nourished morbidly obese female anxious in acute discomfort; no respiratory distress. SKIN: Warm and dry. HEAD: Normocephalic. EYES: No scleral icterus. No injection or drainage. NECK: Supple, trachea midline. No JVD or lymphadenopathy. CARDIOVASCULAR: Regular rate and rhythm without murmurs, gallops, or rubs. RESPIRATORY: Breath sounds equal bilaterally. No accessory muscle use. GASTROINTESTINAL: Abdomen soft, non-tender, nondistended. MUSCULOSKELETAL: No cyanosis, or edema. Bilateral dorsalis pedis pulses 2+ to palpation. No limb pallor or coolness. Attention right groin large firm subcutaneous hematoma with tenderness no active bleeding. BACK: Nontender without obvious deformity. No CVA tenderness. Data Data Last Documented VS Vital Signs Date Time Temp Pulse Resp B/P (MAP) Pulse Ox O2 Delivery O2 Flow Rate FiO2 07/08/17 21:41 89 18 119/66 (83) 100 Room Air 07/08/17 20:31 98.4 Orders Orders ^ Saline Lock (07/08/17 20:31) Complete Blood Count With Diff (07/08/17 20:31) Basic Metabolic Panel (Bmp) (07/08/17 20:31) Act Partial Throm Time (Ptt) (07/08/17 20:31) Prothrombin Time / Inr (Pt) (07/08/17 20:31) Morphine Inj (Morphine Inj) (07/08/17 20:45) Ondansetron Inj (Zofran Inj) (07/08/17 20:45) Ice/Cold Pack (07/08/17 20:31) Type And Screen (07/08/17 20:38) Us Leg Hematoma/Pseudoaneurysm (07/08/17 20:39) Hydromorphone Pf Inj (Dilaudid Pf Inj) (07/08/17 21:00) Diet Npo (07/09/17 Breakfast) Vital Signs (Adult) RENE.Q4H (07/08/17 21:32) Sodium Chlor 0.9% 1000 Ml Inj (Ns 1000 M (07/08/17 21:45) Morphine Inj (Morphine Inj) (07/08/17 21:45) Admit Order (Ed Use Only) (07/08/17 ) Shaker Operator / Telemetry RENE.Q8H (07/08/17 21:47) Activity Bed Rest (07/08/17 21:47) Notify Dr: Other (07/08/17 21:47) Consult Cardiology (07/08/17 ) Consult Vascular Surgery (07/08/17 ) Labs Laboratory Tests Test 07/08/17 20:43 White Blood Count 11.3 TH/MM3 Red Blood Count 3.95 MIL/MM3 Hemoglobin 11.8 GM/DL Hematocrit 34.5 % Mean Corpuscular Volume 87.5 FL Mean Corpuscular Hemoglobin 29.9 PG Mean Corpuscular Hemoglobin Concent 34.2 % Red Cell Distribution Width 14.4 % Platelet Count 150 TH/MM3 Mean Platelet Volume 8.8 FL Neutrophils (%) (Auto) 62.9 % Lymphocytes (%) (Auto) 23.9 % Monocytes (%) (Auto) 6.4 % Eosinophils (%) (Auto) 2.6 % Basophils (%) (Auto) 4.2 % Neutrophils # (Auto) 7.1 TH/MM3 Lymphocytes # (Auto) 2.7 TH/MM3 Monocytes # (Auto) 0.7 TH/MM3 Eosinophils # (Auto) 0.3 TH/MM3 Basophils # (Auto) 0.5 TH/MM3 CBC Comment DIFF FINAL Differential Comment Prothrombin Time 11.0 SEC Prothromb Time International Ratio 1.1 RATIO Activated Partial Thromboplast Time 27.5 SEC Blood Urea Nitrogen 4 MG/DL Creatinine 0.59 MG/DL Random Glucose 86 MG/DL Calcium Level 8.7 MG/DL Sodium Level 139 MEQ/L Potassium Level 3.8 MEQ/L Chloride Level 105 MEQ/L Carbon Dioxide Level 27.9 MEQ/L Anion Gap 6 MEQ/L Estimat Glomerular Filtration Rate 111 ML/MIN MDM Medical Decision Making Medical Screen Exam Complete: Yes Emergency Medical Condition: Yes Medical Record Reviewed: Yes Interpretation(s) Last Impressions Lower Extremity Ultrasound 07/08/172038 Signed Impressions: Service Date/Time: Saturday, July 08, 2017 20:57 - CONCLUSION: Large hematoma likely representing a thrombosed pseudoaneurysm with flow only seen at the neck region. The neck measures 6 mm in diameter and 7 mm in length. Evelio Murphy MD CBC & BMP Diagram 07/08/17 20:43 Calcium Level 8.7 Vital Signs Date Time Temp Pulse Resp B/P (MAP) Pulse Ox O2 Delivery O2 Flow Rate FiO2 07/08/17 21:41 89 18 119/66 (83) 100 Room Air 07/08/17 20:31 98.4 90 20 136/90 (105) 100 Differential Diagnosis Post cardiac catheterization hematoma, pseudoaneurysm, limb ischemia Narrative Course Patient placed on cardiac tech IV access obtained patient administered IV morphine sulfate 4 mg and Zofran 4 mg stat ultrasound of the leg to assess for pseudoaneurysm and hematoma order At 20:55 PM unit aide tech is present at bedside Patient complains of ongoing pain after morphine Dilaudid 1 mg IV administered Preliminary reading per unit aide tech exam consistent with large pseudoaneurysm with clot present; call placed to vascular surgeon and patient's aegis console operator track; radiology reading pending Dr Hart and Dr Jara informed of final radiologist reading of US -- transfer to [facility] to medicine service will see in consultation and procedural intervention in the AM per Dr Hart; Dr Jara requests to be consulted Patient with spouse at bedside informed of plan for transfer to [facility]. Pain is controlled. Call placed to medicine service for admission discussed with and accepted by Dr. Alcala @ 2:10 EMS here to transport patient Physician Communication Physician Communication 21:[address] Hart --admit to [facility] transfer to [facility]; call placed to Dr Jara; call placed to [facility] service Diagnosis Primary Impression: Pseudoaneurysm of right femoral artery Admitting Information Admitting Physician Requests: Admit Selin Lee MD July 08, 2017 20:56
[2017-07-08 20:57] LABS: CALCIUM 8.7 MG/DL (8.5-10.1)
[2017-07-08 20:58] LABS: BICARBONATE 27.9 MEQ/L (21.0-32.0)
[2017-07-08] MEDS ORDERED: HYDROmorphone HCL PF 2 MG/ML VIAL IV PUSH ONE (21:00)
[2017-07-08 21:01] LABS: CREATININE 0.59 MG/DL (0.50-1.00)
[2017-07-08 21:15] LABS: INTERNATIONAL NORMALIZED RATIO 1.1 RATIO
[2017-07-08 21:41] VITALS: BP 119/66; PULSE 89; RESP 18; O2SAT 100
[2017-07-08] MEDS: SODIUM CHLOR 0.9% 1000 ML INJ 1,000 ML IV SCH (21:47)
[2017-07-08] MEDS: MORPHINE SULFATE 4 MG/ML INJ IV PRN (21:48)
--- NOTE | 2017-07-08 21:49 | RADRPT ---
EXAM DATE/TIME: 07/08/2017 20:57 [facility] COMPARISON: No previous studies available for comparison. INDICATIONS : Psuedoaneurysm. MEDICAL HISTORY : Hypercholesterolemia. Chronic obstructive pulmonary disease. Glasses. Anticoagulant therapy, plavix . Hyperlipidemia. Chest pain. Dyspnea. PCOS. Arthritis. Fibromyalgia. SURGICAL HISTORY : Appendectomy. Hysterectomy. Carpal tunnel syndrome. Cardiac catheterization. ENCOUNTER: Initial ACUITY: 1 day PAIN SCORE: 10/10 LOCATION: Right groin. AREA EVALUATED: Right groin. FINDINGS: There is a large complex mass measuring 15.0 x 9.6 x 6.7 cm. This appears to represent a large hemato ma. Significant flow throughout much of this is not seen. There does appear to be minimal flow at the neck of this mass suggesting this represents a large pseudoaneurysm that is nearly completely thromb osed with the exception of the neck. The neck measures 6 mm in diameter and 7 mm in length. CONCLUSION: Large hematoma likely representing a thrombosed pseudoaneurysm with flow only seen at the neck region. The neck measures 6 mm in diameter and 7 mm in length. Evelio Murphy MD on July 08, 2017 at 21:39 Board Certified Radiologist. This report was verified electronically.
[2017-07-08 23:02] VITALS: BP 122/70; PULSE 75; RESP 16; O2SAT 100
[2017-07-09] VITALS (10 sets, daily range): BP systolic 116–132; BP diastolic 57–85; PULSE 75–103; RESP 16–20; TEMP 97.4–98.7; O2SAT 94–100
[2017-07-09] MEDS: MORPHINE SULFATE 4 MG/ML INJ IV PRN ×3 (02:04→21:38)
[2017-07-09] MEDS: SODIUM CHLOR 0.9% 1000 ML INJ 1,000 ML IV SCH ×2 (07:45→17:51)
[2017-07-09] MEDS ORDERED: ATORVASTATIN 80 MG TAB PO ONE (08:00)
[2017-07-09] MEDS ORDERED: ASPIRIN EC 81 MG TABEC PO ONE (08:00)
[2017-07-09] MEDS ORDERED: CLOPIDOGREL 75 MG TAB PO ONE (08:00)
[2017-07-09] MEDS ORDERED: RAMI2.5C PO (08:49)
[2017-07-09] MEDS ORDERED: LORA-474 PO (08:49)
[2017-07-09] MEDS ORDERED: OXYC1TAB36 PO (08:49)
[2017-07-09] MEDS: CLOPIDOGREL 75 MG TAB PO SCH (08:49)
[2017-07-09] MEDS ORDERED: PLAV75TA29 PO (08:49)
[2017-07-09] MEDS ORDERED: ALBUAER3 INH (08:49)
[2017-07-09] MEDS ORDERED: APRE1TAB3 PO (08:49)
[2017-07-09] MEDS ORDERED: ASPI-516 PO (08:49)
[2017-07-09] MEDS ORDERED: AMIT10TA6 PO (08:49)
[2017-07-09] MEDS ORDERED: ATOR80TA45 PO (08:49)
[2017-07-09] MEDS ORDERED: CYCL10TA PO (08:49)
[2017-07-09] MEDS ORDERED: CARV3.12 PO (08:49)
[2017-07-09] MEDS ORDERED: ASPIRIN EC 81 MG TABEC PO SCH (09:00)
[2017-07-09] MEDS ORDERED: CHLORHEXIDINE GLUCONATE 2 % 1 PACK (2 CLOTHS) TOPICAL PRN (10:00)
[2017-07-09] MEDS ORDERED: SODIUM CHLORID 0.9% 500 ML IV PRN (10:00)
[2017-07-09] MEDS ORDERED: LACTATED RINGER'S 1000 ML IV PRN (10:00)
[2017-07-09] MEDS ORDERED: POVIDONE IODINE 5% (ANTISEPSIS KIT) 4 APPLICATIONS EACH NARE PRN (10:00)
[2017-07-09] MEDS ORDERED: METOPROLOL TARTRATE 25 MG TAB PO PRN (10:00)
--- NOTE | 2017-07-09 10:16 | HHI.HP ---
[facility] Gardenia Jackman MD Admission Diagnosis acute R fem pseudoaneurysm s/p card cath Diagnoses: Travel History International Travel<30 Days: No Contact w/Intl Traveler <30 Da: No Traveled to Known Affected Are: No History of Present Illness Mrs. Elizabeth is a 41 year old female. She has a recent history of heart catheterization 2 days ago with placement of a stent. At this point she is on aspirin and Plavix. She did well during the procedure and was discharged yesterday. At home she says that she coughed and had an immediate pain followed by swelling and bruising at the right groin. Today she says that the swelling has improved compared to yesterday. She is admitted for observation and cardiology and vascular surgery evaluations are pending. No other complaints today. Pain is under control. Review of Systems Respiratory: DENIES: Cough, Wheezing, Shortness of breath Cardiovascular: DENIES: Chest pain, Palpitations, Syncope Integumentary: COMPLAINS OF: Abnormal pigmentation Hematologic/lymphatic: COMPLAINS OF: Bruising Except as stated in HPI: all other systems reviewed are Neg Past Family Social History Past Medical History Arthritis: Yes Anxiety: Yes Cardiovascular Problems: Yes (hyperlipidemia RECENT CATH, DECEMBER 02, 2016) High Cholesterol: Yes Fibromyalgia: Yes Headaches: Yes Hypertension: Yes Musculoskeletal: Yes (ARTHRITIS) Migraines: Yes Thyroid Disease: No Triglycerides - High: Yes Ovarian Cysts: Yes (POLYCYSTIC OVARY DISEASE) Past Surgical History Past Surgical History Appendectomy: Yes Cardiac Surgery: Yes (HEART CATH ) Hysterectomy: Yes Reported Medications Administered Medications Medications (Trade) Dose Ordered Sig/Rufino Route PRN Reason Start Time Stop Time Status Last Admin Dose Admin Sodium Chloride 1,000 ml @ 100 mls/hr Q10H IV 07/08/17 21:45 07/08/17 21:47 Morphine Sulfate (Morphine Inj) 2 mg Q4H PRN IV PAIN 07/08/17 21:45 07/09/17 08:50 Aspirin (Ecotrin Ec) 162 mg DAILY PO 07/09/17 09:00 07/09/17 08:50 Clopidogrel Bisulfate (Plavix) 75 mg DAILY PO 07/09/17 09:00 07/09/17 08:49 Allergies: Coded Allergies: Sulfa (Sulfonamide Antibiotics) (Unverified Allergy, Mild, Itching, ) Active Ordered Medications Administered Medications Medications (Trade) Dose Ordered Sig/Rufino Route PRN Reason Start Time Stop Time Status Last Admin Dose Admin Sodium Chloride 1,000 ml @ 100 mls/hr Q10H IV 07/08/17 21:45 07/08/17 21:47 Morphine Sulfate (Morphine Inj) 2 mg Q4H PRN IV PAIN 07/08/17 21:45 07/09/17 08:50 Aspirin (Ecotrin Ec) 162 mg DAILY PO 07/09/17 09:00 07/09/17 08:50 Clopidogrel Bisulfate (Plavix) 75 mg DAILY PO 07/09/17 09:00 07/09/17 08:49 Family History Coronary artery disease Social History Alcohol Use: Yes ("VERY RARELY") Tobacco Use: Yes (3/4 PPD) Substance Use: No (PT DENIES ) Physical Exam Vital Signs Vital Signs Date Time Temp Pulse Resp B/P (MAP) Pulse Ox O2 Delivery O2 Flow Rate FiO2 07/09/17 09:49 90 07/09/17 09:27 98.1 82 20 116/57 (76) 94 07/09/17 03:04 98.2 78 17 127/77 (94) 100 07/09/17 02:07 07/09/17 02:06 75 16 122/85 (97) 98 Room Air 07/08/17 23:02 75 16 122/70 (87) 100 Room Air 07/08/17 21:41 89 18 119/66 (83) 100 Room Air 07/08/17 20:31 98.4 90 20 136/90 (105) 100 Physical Exam GENERAL: NAD, A&Ox3, obese HEAD: Normocephalic. NECK: Supple, trachea midline. No lymphadenopathy. EYES: No scleral icterus. No injection or drainage. CARDIOVASCULAR: Regular rate and rhythm without murmurs, gallops, or rubs. RESPIRATORY: Breath sounds equal bilaterally. No accessory muscle use. GASTROINTESTINAL: Abdomen soft, non-tender, nondistended. MUSCULOSKELETAL: No cyanosis, or edema. SKIN: Warm and dry. Right groin has an area of bruising that is approximately 15-20 cm in diameter. Tenderness is present with palpation. Significant adipose tissue is in that area makes approximation of hematoma difficult difficult, but I would approximate 6-8 cm, at the right groin. NEURO: No focal neurological deficitis. Laboratory Laboratory Tests Test 07/08/17 20:43 White Blood Count 11.3 Red Blood Count 3.95 Hemoglobin 11.8 Hematocrit 34.5 Mean Corpuscular Volume 87.5 Mean Corpuscular Hemoglobin 29.9 Mean Corpuscular Hemoglobin Concent 34.2 Red Cell Distribution Width 14.4 Platelet Count 150 Mean Platelet Volume 8.8 Neutrophils (%) (Auto) 62.9 Lymphocytes (%) (Auto) 23.9 Monocytes (%) (Auto) 6.4 Eosinophils (%) (Auto) 2.6 Basophils (%) (Auto) 4.2 Neutrophils # (Auto) 7.1 Lymphocytes # (Auto) 2.7 Monocytes # (Auto) 0.7 Eosinophils # (Auto) 0.3 Basophils # (Auto) 0.5 CBC Comment DIFF FINAL Differential Comment Prothrombin Time 11.0 Prothromb Time International Ratio 1.1 Activated Partial Thromboplast Time 27.5 Blood Urea Nitrogen 4 Creatinine 0.59 Random Glucose 86 Calcium Level 8.7 Sodium Level 139 Potassium Level 3.8 Chloride Level 105 Carbon Dioxide Level 27.9 Anion Gap 6 Estimat Glomerular Filtration Rate 111 Result Diagram: 07/08/17204207/08/172042 Caprini VTE Risk Assessment Caprini VTE Risk Assessment: Mod/High Risk (score >= 2) Caprini Risk Assessment Model Point Value = 1 Point Value = 2 Point Value = 3 Point Value = 5 Age 41-60 Minor surgery BMI > 25 kg/m2 Swollen legs Varicose veins or History of unexplained or recurrent spontaneous Oral contraceptives or hormone replacement Sepsis (< 1 month) Serious lung disease, including pneumonia (< 1 month) Abnormal pulmonary function Acute myocardial infarction Congestive heart failure (< 1 month) History of inflammatory bowel disease Medical patient at bed rest Age 61-74 Arthroscopic surgery Major open surgery (> 45 min) Laparoscopic surgery (> 45 min) Malignancy Confined to bed (> 72 hours) Immobilizing plaster cast Central venous access Age >= 75 History of VTE Family history of VTE Factor V Leiden Prothrombin [id number] Lupus anticoagulant Anticardiolipin antibodies Elevated serum homocysteine Heparin-induced thrombocytopenia Other congenital or acquired thrombophilia Stroke (< 1 month) Elective arthroplasty Hip, pelvis, or leg fracture Acute spinal cord injury (< 1 month) Prophylaxis Regimen Total Risk Factor Score Risk Level Prophylaxis Regimen 0-1 Low Early ambulation 2 Moderate Order ONE of the following: *Sequential Compression Device (SCD) *Heparin 5000 units SQ BID 3-4 Higher Order ONE of the following medications: *Heparin 5000 units SQ TID *Enoxaparin/Lovenox 40 mg SQ daily (WT < 150 kg, CrCl > 30 mL/min) *Enoxaparin/Lovenox 30 mg SQ daily (WT < 150 kg, CrCl > 10-29 mL/min) *Enoxaparin/Lovenox 30 mg SQ BID (WT < 150 kg, CrCl > 30 mL/min) AND/OR *Sequential Compression Device (SCD) 5 or more Highest Order ONE of the following medications: *Heparin 5000 units SQ TID (Preferred with Epidurals) *Enoxaparin/Lovenox 40 mg SQ daily (WT < 150 kg, CrCl > 30 mL/min) *Enoxaparin/Lovenox 30 mg SQ daily (WT < 150 kg, CrCl > 10-29 mL/min) *Enoxaparin/Lovenox 30 mg SQ BID (WT < 150 kg, CrCl > 30 mL/min) AND *Sequential Compression Device (SCD) Assessment and Plan Problem List: (1) Pseudoaneurysm of right femoral artery ICD Code: I72.4 - Aneurysm of artery of lower extremity Status: Acute (2) CAD (coronary artery disease) ICD Code: I25.10 - Atherosclerotic heart disease of [place] coronary artery without angina pectoris (3) Tobacco abuse ICD Code: Z72.0 - Tobacco use Assessment and Plan 41-year-old female admitted secondary to right groin hematoma status post heart cath Acute right groin hematoma Bleeding appears to have stopped at this point Continue to monitor Follow CBC Cardiology and vascular surgery following PRN pain treatments Coronary artery disease Recent cardiac stent placement Continue Plavix and aspirin for now No chest pain Hyperlipidemia Continue present treatment Follow as an outpatient Hypertension Continue baseline treatment Follow blood pressures Adjust treatments as needed Osteoarthritis General anxiety disorder Fibromyalgia History of headaches Polycystic ovarian disease No acute changes of these conditions Follow clinically DVT prophylaxis Patient is left on Plavix and aspirin given recent heart cath and stent placement No upgrade anticoagulation due to active bleed Darnell Castillo MD July 09, 2017 10:16
--- NOTE | 2017-07-09 13:19 | MB ---
cc: Raimundo Jara MD DATE: 07/09/2017 HISTORY OF PRESENT ILLNESS: Eneida is a very pleasant 41-year-old lady who underwent a PCI bare metal stent of the proximal mid-right coronary artery on 07/06/2017. She did well post-procedure and was discharged home on aspirin, Plavix, Lipitor, Altace and Coreg. I saw her in the office this week; she was doing well. Apparently she was eating some chicken last night, choked on a bone, developed pain and swelling in the right groin, went to the emergency room and found to have a large hematoma, possible pseudoaneurysm. Today, the patient feels much better. She has no pain at the site. The site appears to be soft with ecchymosis present. She is able to walk without significant pain. She otherwise denies any fever, chills, cough, GI or bleeding, PND, orthopnea, syncope or dizziness. PAST MEDICAL HISTORY: As per History Of Present Illness. She has a history of polycystic ovarian syndrome, psoriatic arthritis, hyperlipidemia, COPD, fibromyalgia. PAST SURGICAL HISTORY: History of appendectomy, history of hysterectomy. SOCIAL HISTORY: Alcohol: Rarely drinks alcohol. She still smokes 3/4 of a pack of cigarettes a day. ALLERGIES: SULFA. MEDICATIONS PRIOR TO ADMISSION: 1. Atorvastatin 80 mg at bedtime. 2. Plavix 75 mg daily. 3. Coreg 3.125 q. 12 hours. 4. Ramipril 2.5 mg daily. 5. Aspirin 81 mg 2 every day. 6. Flexeril. 7. Amitriptyline. 8. Percocet. 9. Ativan. 10. Otezla. MEDICATIONS IN THE HOSPITAL: 1. Atorvastatin 80 mg at bedtime. 2. Aspirin 162 mg daily. 3. Clopidogrel 75 mg daily. PHYSICAL EXAMINATION: VITAL SIGNS: Blood pressure 116/57, pulse 82, respiratory rate 20, temperature 98.1. GENERAL: She is alert and oriented x 3, in no acute distress. NECK: Supple. No JVD. No bruit. HEART: S1, S2. No murmurs, rubs or gallops. LUNGS: Clear to auscultation bilaterally. ABDOMEN: Soft, nontender, nondistended, positive bowel sounds. EXTREMITIES: No lower extremity edema. Right groin ultrasound shows a 15.0 x 9.6 x 6.7 large complex mass, appears to represent a large hematoma. Significant flow through much of it is not seen. There is a neck measuring 6 mm in diameter x 7 mm in length, appears to be thrombosed with flow only seen at the neck region. LABORATORY DATA: White count 11.3, hemoglobin 11.8, hematocrit 34.5, platelet count 150. Sodium 139, potassium 3.8, chloride 105, bicarbonate 27.9, BUN 4, creatinine 0.59. INR 1.1. DIAGNOSES: She is following diagnoses: 1. Hematoma. 2. Pseudoaneurysm. 3. Coronary artery disease. 4. Tobacco abuse. 5. Polycystic ovarian syndrome. DISCUSSION: At this point in time, her hematoma appears to be improving clinically. She is asymptomatic. I discussed the case with Dr. Hart. PLAN: The plan is to observe her for another 24 hours. I have restarted her aspirin and Plavix due to the stent being placed on 07/06/2017. I have also restarted her Lipitor. I am holding her Coreg and Altace just to make sure she remains hemodynamically stable. I have strongly advised her to stop smoking. Plan discussed with the nurse at the bedside as well. MD MARY Mcmanus/KATERINA , 12:44 PM , 01:17 PM
--- NOTE | 2017-07-09 19:07 | MB ---
cc: Bobby Hart MD DATE: 07/09/2017 REASON FOR CONSULTATION: Right femoral artery pseudoaneurysm and hematoma of the right groin. HISTORY OF PRESENT ILLNESS: This 41-year-old lady who is morbidly obese, underwent a transfemoral metal coronary artery stent placement on 07/06. The patient presented last night to the emergency room at [facility] [facility] with a large hematoma of the right groin and ultrasound was performed, which reveals a large clot with some communication with the femoral artery consistent with a partially clotted pseudoaneurysm. PAST MEDICAL HISTORY: Psoriasis, hyperlipidemia, chronic obstructive pulmonary disease, coronary artery disease and polycystic ovarian syndrome. PAST SURGICAL HISTORY: Appendectomy and hysterectomy. SOCIAL HISTORY: The patient does not drink. Smokes about pack a day. MEDICATIONS: She is on a number of mediations including Plavix and aspirin. PHYSICAL EXAMINATION: GENERAL: Reveals a pleasant 41-year-old lady, morbidly obese/ HEENT: Normocephalic. No trauma to the head. Pupils equal, reactive. Extraocular muscles intact. NECK: Supple. Very short. Bilateral carotid pulses. No bruits. CHEST: Bilateral breath sounds, very hard to auscultate due to the body habitus. HEART: Regular rate and rhythm. ABDOMEN: Soft. Active bowel sounds. No rebound, no guarding, no masses. Again, abdominal exam is limited due to the obesity. Left groin appears to be normal. On the right groin, there is 15 x 10 cm hematoma; however, I do not feel it pulsating at this point. This is an almost completely clotted right groin pseudoaneurysm. EXTREMITIES: The patient has good distal pulses. IMPRESSION AND PLAN: Based on the above, I have discussed it with Dr. Jara. We are going to sit tight for the time being. If this completely clots off, then the patient will not need anything but possibly aspiration and drainage of hematoma. On the other hand, if this continues to be a problem and pseudoaneurysm continues by definition to communicate with femoral artery, then patient may require thrombin injection or even surgery. At this point will consult interventional radiology for thrombin injection and if this is successful this may be all that patient needs. Hematoma right thigh while present is currently not major problem so I would allow it to liquefy and then aspirate rather than do an open evacuation of the same for the chance of infection in this area is quite high. I thank you much for referral. MD LOLITA Dove/RAMON , 06:31 PM , 07:06 PM LAUREL
[2017-07-09] MEDS: ATORVASTATIN 80 MG TAB PO SCH (21:37)
[2017-07-10] VITALS (8 sets, daily range): BP systolic 105–139; BP diastolic 55–76; PULSE 85–94; RESP 16–22; TEMP 97.8–98.6; O2SAT 96–100
[2017-07-10] MEDS: MORPHINE SULFATE 4 MG/ML INJ IV PRN ×3 (05:07→21:20)
[2017-07-10 05:42] LABS: AUTOMATED NEUTROPHIL # 5.5 TH/MM3 (1.8-7.7); BASOPHIL % 0.5 % (0.0-2.0); EOSINOPHIL # 0.3 TH/MM3 (0-0.4); EOSINOPHIL % 2.8 % (0.0-4.0); HEMATOCRIT 22.2 % (35.0-46.0); HEMOGLOBIN 7.6 GM/DL (11.6-15.3); LYMPH % 34.5 % (9.0-44.0); LYMPHOCYTE # 3.5 TH/MM3 (1.0-4.8); MEAN CELL VOLUME 90.3 FL (80.0-100.0); MEAN CORPUSCULAR HEMOGLOBIN 30.9 PG (27.0-34.0); MEAN CORPUSCULAR HGB CONC 34.2 % (32.0-36.0); MEAN PLATELET VOLUME 8.7 FL (7.0-11.0); MONOCYTE # 0.9 TH/MM3 (0-0.9); NEUT % 53.2 % (16.0-70.0); PLATELET COUNT 127 TH/MM3 (150-450); RED BLOOD COUNT 2.46 MIL/MM3 (4.00-5.30); WHITE BLOOD COUNT 10.3 TH/MM3 (4.0-11.0)
[2017-07-10 06:06] LABS: ALBUMIN 2.6 GM/DL (3.4-5.0); AST (GOT) 23 U/L (15-37); BICARBONATE 31.6 MEQ/L (21.0-32.0); BLOOD UREA NITROGEN 8 MG/DL (7-18); CHLORIDE 103 MEQ/L (98-107); CREATININE 0.64 MG/DL (0.50-1.00); GLOMERULAR FILTRATION RATE 101 ML/MIN (>89); GLUCOSE,RANDOM 116 MG/DL (74-106); SODIUM (NA) 140 MEQ/L (136-145)
[2017-07-10 06:09] LABS: ALKALINE PHOSPHATASE 75 U/L (45-117); ALT (GPT) 22 U/L (10-53); TOTAL BILIRUBIN ADULT 0.4 MG/DL (0.2-1.0)
[2017-07-10] MEDS ORDERED: SODIUM CHLOR 0.9% 250 ML INJ 250 ML IV ONE (06:45)
[2017-07-10] MEDS: SODIUM CHLOR 0.9% 1000 ML INJ 1,000 ML IV SCH ×3 (07:49→20:33)
--- NOTE | 2017-07-10 09:41 | PD.CARD.PN ---
Subjective Subjective Remarks c/o worsening pain and swelling right groin Objective Medications Current Medications Medications (Trade) Dose Ordered Sig/Rufino Route Start Time Stop Time Status Last Admin Sodium Chloride 1,000 ml @ 100 mls/hr Q10H IV 07/08/17 21:45 07/09/17 17:51 (Morphine Inj) 2 mg Q4H PRN IV 07/08/17 21:45 07/10/17 05:07 (Ecotrin Ec) 162 mg DAILY PO 07/09/17 09:00 07/09/17 08:50 (Plavix) 75 mg DAILY PO 07/09/17 09:00 07/09/17 08:49 (Lipitor) 80 mg HS PO 07/09/17 21:00 07/09/17 21:37 Lactated Ringer's 1,000 ml @ 30 mls/hr Q24H PRN IV 07/09/17 10:00 07/12/17 09:59 Sodium Chloride 500 ml @ 30 mls/hr [id number] PRN IV 07/09/17 10:00 07/12/17 09:59 (Lopressor) 25 mg CLERICAL ORDER FILLER PRN PO 07/09/17 10:00 07/12/17 09:59 (Betadine 5% Antisepsis Kit) 1 applic CLERICAL ORDER FILLER PRN EACH NARE 07/09/17 10:00 07/12/17 09:59 (Chlorhexidine 2% Cloth) 3 pack CLERICAL ORDER FILLER PRN TOPICAL 07/09/17 10:00 07/12/17 09:59 Sodium Chloride 250 ml @ 15 mls/hr ONCE ONCE IV 07/10/17 06:45 07/10/17 23:24 Vital Signs / I&O Vital Signs Date Time Temp Pulse Resp B/P (MAP) Pulse Ox O2 Delivery O2 Flow Rate FiO2 07/10/17 07:42 98.6 86 20 105/56 (72) 96 07/10/17 02:57 98.2 94 17 135/69 (91) 96 07/09/17 23:01 103 07/09/17 23:01 98.4 100 18 128/62 (84) 98 07/09/17 19:29 98.0 93 18 117/57 (77) 100 07/09/17 16:29 97.4 98 18 132/77 (95) 100 07/09/17 16:00 87 07/09/17 13:06 80 07/09/17 12:47 98.7 87 20 127/74 (91) 94 07/09/17 09:49 90 I/O 07/09/17 07/09/17 07/09/17 07/10/17 07/10/17 07/10/17 06:59 14:59 22:59 06:59 14:59 22:59 Intake Total 1000 ml Balance 1000 ml Intake IV Total 1000 ml Physical Exam GENERAL: SKIN: Warm and dry. HEAD: Normocephalic. EYES: No scleral icterus. No injection or drainage. NECK: Supple, trachea midline. No JVD or lymphadenopathy. CARDIOVASCULAR: Regular rate and rhythm without murmurs, gallops, or rubs. RESPIRATORY: Breath sounds equal bilaterally. No accessory muscle use. GASTROINTESTINAL: Abdomen soft, non-tender, nondistended. MUSCULOSKELETAL: No cyanosis, or edema. BACK: Nontender without obvious deformity. No CVA tenderness. Laboratory Laboratory Tests Test 07/10/17 04:13 White Blood Count 10.3 TH/MM3 Red Blood Count 2.46 MIL/MM3 Hemoglobin 7.6 GM/DL Hematocrit 22.2 % Mean Corpuscular Volume 90.3 FL Mean Corpuscular Hemoglobin 30.9 PG Mean Corpuscular Hemoglobin Concent 34.2 % Red Cell Distribution Width 15.0 % Platelet Count 127 TH/MM3 Mean Platelet Volume 8.7 FL Neutrophils (%) (Auto) 53.2 % Lymphocytes (%) (Auto) 34.5 % Monocytes (%) (Auto) 9.0 % Eosinophils (%) (Auto) 2.8 % Basophils (%) (Auto) 0.5 % Neutrophils # (Auto) 5.5 TH/MM3 Lymphocytes # (Auto) 3.5 TH/MM3 Monocytes # (Auto) 0.9 TH/MM3 Eosinophils # (Auto) 0.3 TH/MM3 Basophils # (Auto) 0.0 TH/MM3 CBC Comment DIFF FINAL Differential Comment Blood Urea Nitrogen 8 MG/DL Creatinine 0.64 MG/DL Random Glucose 116 MG/DL Total Protein 6.0 GM/DL Albumin 2.6 GM/DL Calcium Level 8.0 MG/DL Alkaline Phosphatase 75 U/L Aspartate Amino Transf (AST/SGOT) 23 U/L Alanine Aminotransferase (ALT/SGPT) 22 U/L Total Bilirubin 0.4 MG/DL Sodium Level 140 MEQ/L Potassium Level 3.7 MEQ/L Chloride Level 103 MEQ/L Carbon Dioxide Level 31.6 MEQ/L Anion Gap 5 MEQ/L Estimat Glomerular Filtration Rate 101 ML/MIN Assessment and Plan Problem List: (1) Pseudoaneurysm of right femoral artery ICD Codes: I72.4 - Aneurysm of artery of lower extremity Status: Acute (2) CAD (coronary artery disease) ICD Codes: I25.10 - Atherosclerotic heart disease of [place] coronary artery without angina pectoris (3) Tobacco abuse ICD Codes: Z72.0 - Tobacco use Assessment and Plan 1.) Right groin hematoma - consult IR to consider thrombin injection, recheck cbc now and in am, transfuse if hgb<7.0; I d/w Dr Faulkner and Raimundo Ramirez MD July 10, 2017 09:41
[2017-07-10] MEDS: CLOPIDOGREL 75 MG TAB PO SCH (10:16)
--- NOTE | 2017-07-10 12:59 | RADRPT ---
EXAM DATE/TIME: 07/10/2017 10:57 [facility] COMPARISON: US LEG RIGHT HEMATOMA/PSEUDOANEURYSM, July 08, 2017, 20:57. INDICATIONS : Right groin pseudoaneurysm. Follow up. MEDICAL HISTORY : Hypercholesterolemia. Chronic obstructive pulmonary disease. Anticoagulant therapy, plavix. Hyperlipi demia. Chest pain.Dyspnea. PCOS. Arthritis. Fibromyalgia. SURGICAL HISTORY : Appendectomy. Hysterectomy. Carpal tunnel syndrome.Cardiac catheterization. ENCOUNTER: Subsequent ACUITY: 3 days PAIN SCORE: 3/10 LOCATION: Right groin. AREA EVALUATED: Right groin. FINDINGS: Ultrasound demonstrates a partially thrombosed pseudoaneurysm measuring 3.2 x 2.6 x 2.0 cm. Is a prom inent neck measuring almost 7 mm in diameter. In addition, the common femoral artery itself has a par tially thrombosed aneurysm measuring 2.5 x 2.5 x 2.4 cm. Medial to the above, there is a complex 8.7 x 11.9 x 3.4 cm probable hematoma. CONCLUSION: 1. Patient has multiple issues in the right groin. There is a complex, 8.7 x 11.9 x 3.4 cm hematoma i n the medial thigh. 2. There appears to be partially thrombosed pseudoaneurysm measuring 3.2 x 2.6 x 2.0 cm with a promin ent neck measuring almost 7 mm in diameter. 3. Finally, the common femoral artery itself appears to be aneurysmal in the region of the pseudoaneu rysm measuring 2.5 x 2.5 x 2.3 cm with mural thrombus. 4. Because of the complexity of the of the regional vasculature in the right groin, I will obtain a C TA of the pelvic vasculature for further characterization before any planned intervention. Nguyễn Spicer MD on July 10, 2017 at 12:46 Board Certified Radiologist. This report was verified electronically.
--- NOTE | 2017-07-10 13:35 | HHI.PR ---
Subjective Remarks Downward trend in hemoglobin, finding og hemoglobin is 7.6 this morning. Patient reports feeling weak and short of breath with ambulation. She feels that she has increased swelling at her right groin/leg. Objective Vital Signs Date Time Temp Pulse Resp B/P (MAP) Pulse Ox O2 Delivery O2 Flow Rate FiO2 07/10/17 10:52 97.8 88 19 96 07/10/17 10:19 98.3 92 20 128/64 98 07/10/17 08:20 85 07/10/17 07:42 98.6 86 20 105/56 (72) 96 07/10/17 02:57 98.2 94 17 135/69 (91) 96 07/09/17 23:01 103 07/09/17 23:01 98.4 100 18 128/62 (84) 98 07/09/17 19:29 98.0 93 18 117/57 (77) 100 07/09/17 16:29 97.4 98 18 132/77 (95) 100 07/09/17 16:00 87 I/O 07/09/17 07/09/17 07/09/17 07/10/17 07/10/17 07/10/17 07:00 15:00 23:00 07:00 15:00 23:00 Intake Total 1000 ml Balance 1000 ml Intake IV Total 1000 ml Result Diagram: 07/10/17 0413 07/10/17 041 Objective Remarks GENERAL: NAD, A&Ox3, obese HEAD: Normocephalic. NECK: Supple, trachea midline. No lymphadenopathy. EYES: No scleral icterus. No injection or drainage. CARDIOVASCULAR: Regular rate and rhythm without murmurs, gallops, or rubs. RESPIRATORY: Breath sounds equal bilaterally. No accessory muscle use. GASTROINTESTINAL: Abdomen soft, non-tender, nondistended. MUSCULOSKELETAL: No cyanosis, or edema. SKIN: Warm and dry. Increased bruising at right groin and upper leg NEURO: No focal neurological deficitis. A/P Problem List: (1) Tobacco abuse ICD Code: Z72.0 - Tobacco use (2) CAD (coronary artery disease) ICD Code: I25.10 - Atherosclerotic heart disease of [place] coronary artery without angina pectoris (3) Pseudoaneurysm of right femoral artery ICD Code: I72.4 - Aneurysm of artery of lower extremity Status: Acute Assessment and Plan 41-year-old female admitted secondary to right groin hematoma status post heart cath Worsened hemoglobin this morning. Transfusion ordered and is being infused when I saw the patient today. Further monitoring is needed prior to determining stability of patient. Patient converted to inpatient. Acute right groin hematoma Acute blood loss anemia Transfusion of packed red blood cells ordered Bleeding appears to be active at this point Continue to monitor Follow CBC Cardiology and vascular surgery following PRN pain treatments Coronary artery disease Recent cardiac stent placement Aspirin held continue Plavix for now No chest pain Hyperlipidemia Continue present treatment Follow as an outpatient Hypertension Continue baseline treatment Follow blood pressures Adjust treatments as needed Osteoarthritis General anxiety disorder Fibromyalgia History of headaches Polycystic ovarian disease No acute changes of these conditions Follow clinically DVT prophylaxis Patient is left on Plavix given recent heart cath and stent placement Aspirin on hold no upgrade anticoagulation due to active bleed Darnell Castillo MD July 10, 2017 13:35
[2017-07-10] MEDS ORDERED: IOHEXOL 350 MG/ML 10 ML VIAL (for RAD DIAG) IVCONTRAST ONE (14:22)
--- NOTE | 2017-07-10 15:08 | RADRPT ---
EXAM DATE/TIME: 07/10/2017 13:56 [facility] COMPARISON: US LEG RIGHT HEMATOMA/PSEUDOANEURYSM, July 10, 2017, 10:57. INDICATIONS : Psuedoaneurysm/aneurysm and hematoma right groin. IV CONTRAST: 150 cc Omnipaque 350 (iohexol) IV RADIATION DOSE: 21.70 CTDIvol (mGy) MEDICAL HISTORY : Hypertension. Cardiovascular disease SURGICAL HISTORY : Appendectomy. Hysterectomy. ENCOUNTER: Initial ACUITY: 1 day PAIN SCALE: 0/10 LOCATION: Right pelvis. TECHNIQUE: Volumetric scanning of the pelvis was performed. Using automated exposure control and adjustment of the mA and/or kV according to patient size, radiation dose was kept as low as reasonably achievable t o obtain optimal diagnostic quality images. DICOM format image data is available electronically for review and comparison. FINDINGS: CTA was obtained for clarification of the right groin pseudoaneurysm. CT confirms the presence of a 2 .7 x 2.3 x 2.6 cm pseudoaneurysm with an approximate 4.4 cm neck emanating from the distal common fem oral artery. The pseudoaneurysm is positioned approximately 1.5-2 cm below the skin surface. This liyah ears to be continuous with a large hematoma in the anteromedial right thigh measuring 15.9 x 4.7 cm i n diameter. However, the [place] common femoral artery is normal in caliber throughout its length with out aneurysmal disease. Also noted is a 9.2 x 4.5 cm fluid collection in the subcutaneous tissues of the abdominal panniculus . CONCLUSION: 1. 2.7 cm partially thrombosed pseudoaneurysm with a 4.4 cm neck emanating from the distal right comm on femoral artery. 2. The common femoral artery itself is normal in caliber without aneurysmal disease. 3. 15.9 x 4.7 cm hematoma in the anteromedial right thigh. Nguyễn Spicer MD on July 10, 2017 at 14:28 Board Certified Radiologist. This report was verified electronically.
[2017-07-10] MEDS ORDERED: THROMBIN (TOPICAL) 5,000 UNIT VIAL ONE (15:44)
[2017-07-10 16:22] LABS: HEMATOCRIT 27.3 % (35.0-46.0); HEMOGLOBIN 9.1 GM/DL (11.6-15.3); MEAN CELL VOLUME 89.6 FL (80.0-100.0); MEAN CORPUSCULAR HEMOGLOBIN 29.9 PG (27.0-34.0); MEAN CORPUSCULAR HGB CONC 33.4 % (32.0-36.0); MEAN PLATELET VOLUME 8.8 FL (7.0-11.0); PLATELET COUNT 156 TH/MM3 (150-450); RED BLOOD COUNT 3.05 MIL/MM3 (4.00-5.30); RED CELL DISTRIBUTION WIDTH 14.9 % (11.6-17.2); WHITE BLOOD COUNT 11.9 TH/MM3 (4.0-11.0)
--- NOTE | 2017-07-10 16:26 | PD.RAD ---
Post Procedure Progress Note Pre Procedure Diagnosis: (1) Pseudoaneurysm of right femoral artery Post Procedure Diagnosis: (1) Pseudoaneurysm of right femoral artery Procedure Date: July 10, 2017 Supervising Radiologist: Nguyễn Spicer Proceduralist/Assist: Trupti Billingsley, RT(R), Caridad Hoyt, RT(R) Anesthesia: Local Plan of Activity Patient to Unit: Other (ED) Patient Condition: Good See PACS Report for procedural detail/treatment Vascular-Arterial Procedure Procedure 1 Procedure Site: Right Leg Procedure(s): Embolization (pseudoaneurysm) Access Closure Site(s): Right manual pressure Findings: Pseudoaneurysm treated with 2000U Thrombin and manual pressure (with u/s probe) x 15 minutes Nguyễn Spicer MD July 10, 2017 16:26
--- NOTE | 2017-07-10 16:34 | RADRPT ---
EXAM DATE/TIME: 07/10/2017 15:13 [facility] COMPARISON: No previous studies available for comparison. INDICATIONS : Patient with a history of pseudoaneurysm. MEDICAL HISTORY : Arthritis Anxiety Hyperlipidemia Fibromyalgia HTN Polycystic ovary disease SURGICAL HISTORY : Appendectomy [place] cath Hysterectomy ENCOUNTER: Initial ACUITY: 2 days PAIN SCORE: 7/10 Right groin IMAGE SERIES: 2 u/s ACCESS SITE: Right pseudoaneurysm MEDICATION(S): 1.) 2000 units Thrombin PROCEDURE : 1. Ultrasound guided puncture of pseudoaneurysm. 2. Thrombin injection of pseudoaneurysm. The risks, benefits and alternatives to the procedure were explained and verbal and written consent w as obtained. The site was prepped in sterile fashion. Full sterile technique was used, including ca p, mask, sterile gloves and gown and a large sterile sheet. Hand hygiene and 2% chlorhexidine and/or betadine/alcohol prep was utilized per protocol for cutaneous antisepsis. Sterile gel and sterile p robe cover were utilized for ultrasound guidance. The skin and subcutaneous tissues were infiltrate d with local anesthetic solution. Ultrasonography was performed of the pseudoaneurysm in the right groin. With ultrasound guidance the pulsatile mass was punctured and the prescribed dose of thrombin was injected. Manual pressure with the ultrasound probe was maintained for 15 minutes. Followup ultrasound examination demonstrates co mplete stasis of flow within the pseudoaneurysm. CONCLUSION: Uncomplicated occlusion of pseudoaneurysm as above Nguyễn Spicer MD on July 10, 2017 at 16:27 Board Certified Radiologist. This report was verified electronically.
--- NOTE | 2017-07-10 18:18 | PD.CAR.PN ---
CVT Progress Note Subjective/Hospital Course: Patient with 2.4 cm in diameter pseudoaneurysm of the common femoral artery as a result of cardiac catheterization Patient is very obese and therefore ultrasound reading is very difficult to interpret CTA elucidated the findings in more objective way Patient has 2.4 cm pseudoaneurysm partially clotted and the long neck tract from the vessel up. The hematoma measures about 15 cm in diameter and is more medial in the thigh At this point the best way to approach this is small amount of thrombin into the aneurysm and then leave everything alone Discussed at length with Dr. Spicer Hematoma will eventually liquefy and then can be aspirated and if it becomes a problem before that can always be evacuated Every effort should be made not to operate this lady because of her body habitus and obesity for she is a high risk for infections and that is opening another [place] box there. Objective: Vital Signs Date Time Temp Pulse Resp B/P (MAP) Pulse Ox O2 Delivery O2 Flow Rate FiO2 07/10/17 15:36 98.2 87 16 116/57 (76) 98 07/10/17 14:28 98.6 94 18 139/76 (97) 100 07/10/17 10:52 97.8 88 19 96 07/10/17 10:19 98.3 92 20 128/64 98 07/10/17 08:20 85 07/10/17 07:42 98.6 86 20 105/56 (72) 96 07/10/17 02:57 98.2 94 17 135/69 (91) 96 07/09/17 23:01 103 07/09/17 23:01 98.4 100 18 128/62 (84) 98 07/09/17 19:29 98.0 93 18 117/57 (77) 100 Labs: Laboratory Tests Test 07/10/17 16:11 White Blood Count 11.9 TH/MM3 (4.0-11.0) Red Blood Count 3.05 MIL/MM3 (4.00-5.30) Hemoglobin 9.1 GM/DL (11.6-15.3) Hematocrit 27.3 % (35.0-46.0) Mean Corpuscular Volume 89.6 FL (80.0-100.0) Mean Corpuscular Hemoglobin 29.9 PG (27.0-34.0) Mean Corpuscular Hemoglobin Concent 33.4 % (32.0-36.0) Red Cell Distribution Width 14.9 % (11.6-17.2) Platelet Count 156 TH/MM3 (150-450) Mean Platelet Volume 8.8 FL (7.0-11.0) Result Diagram: 07/10/17 1611 07/10/17 0413 (1) Pseudoaneurysm of right femoral artery (2) CAD (coronary artery disease) (3) Tobacco abuse Bobby Hart MD July 10, 2017 18:18
[2017-07-10] MEDS: ATORVASTATIN 80 MG TAB PO SCH (20:34)
[2017-07-11] VITALS (10 sets, daily range): BP systolic 106–122; BP diastolic 51–59; PULSE 77–92; RESP 19–22; TEMP 97.6–98.2; O2SAT 95–100
[2017-07-11 06:26] LABS: AUTOMATED NEUTROPHIL # 5.4 TH/MM3 (1.8-7.7); BASOPHIL # 0.1 TH/MM3 (0-0.2); BASOPHIL % 0.6 % (0.0-2.0); EOSINOPHIL # 0.3 TH/MM3 (0-0.4); EOSINOPHIL % 2.9 % (0.0-4.0); HEMOGLOBIN 8.6 GM/DL (11.6-15.3); LYMPH % 29.5 % (9.0-44.0); LYMPHOCYTE # 2.7 TH/MM3 (1.0-4.8); MEAN CELL VOLUME 90.1 FL (80.0-100.0); MEAN CORPUSCULAR HEMOGLOBIN 30.8 PG (27.0-34.0); MEAN CORPUSCULAR HGB CONC 34.2 % (32.0-36.0); MEAN PLATELET VOLUME 8.6 FL (7.0-11.0); MONO % 8.1 % (0.0-8.0); MONOCYTE # 0.7 TH/MM3 (0-0.9); NEUT % 58.9 % (16.0-70.0); PLATELET COUNT 132 TH/MM3 (150-450); RED BLOOD COUNT 2.78 MIL/MM3 (4.00-5.30); RED CELL DISTRIBUTION WIDTH 14.7 % (11.6-17.2); WHITE BLOOD COUNT 9.2 TH/MM3 (4.0-11.0)
[2017-07-11] MEDS: CLOPIDOGREL 75 MG TAB PO SCH (07:43)
[2017-07-11] MEDS: SODIUM CHLOR 0.9% 1000 ML INJ 1,000 ML IV SCH ×2 (07:44→16:17)
--- NOTE | 2017-07-11 08:34 | PD.CARD.PN ---
Subjective Subjective Remarks s/p thrombin injection 07/10/17, improved pain and swelling right groin Objective Medications Current Medications Medications (Trade) Dose Ordered Sig/Rufino Route Start Time Stop Time Status Last Admin Sodium Chloride 1,000 ml @ 100 mls/hr Q10H IV 07/08/17 21:45 07/11/17 07:44 (Morphine Inj) 2 mg Q4H PRN IV 07/08/17 21:45 07/10/17 21:20 (Ecotrin Ec) 162 mg DAILY PO 07/09/17 09:00 Future Hold 07/09/17 08:50 (Plavix) 75 mg DAILY PO 07/09/17 09:00 07/11/17 07:43 (Lipitor) 80 mg HS PO 07/09/17 21:00 07/10/17 20:34 Lactated Ringer's 1,000 ml @ 30 mls/hr Q24H PRN IV 07/09/17 10:00 07/12/17 09:59 Sodium Chloride 500 ml @ 30 mls/hr [id number] PRN IV 07/09/17 10:00 07/12/17 09:59 (Lopressor) 25 mg COMMUNICATION AND OUTREACH MANAGER PRN PO 07/09/17 10:00 07/12/17 09:59 (Betadine 5% Antisepsis Kit) 1 applic COMMUNICATION AND OUTREACH MANAGER PRN EACH NARE 07/09/17 10:00 07/12/17 09:59 (Chlorhexidine 2% Cloth) 3 pack COMMUNICATION AND OUTREACH MANAGER PRN TOPICAL 07/09/17 10:00 07/12/17 09:59 Vital Signs / I&O Vital Signs Date Time Temp Pulse Resp B/P (MAP) Pulse Ox O2 Delivery O2 Flow Rate FiO2 07/11/17 04:22 85 07/11/17 04:00 97.9 85 20 111/58 (75) 95 07/11/17 00:00 92 07/11/17 00:00 98.2 89 22 120/58 (78) 96 07/10/17 21:25 18 07/10/17 20:00 98.5 86 22 112/55 (74) 98 07/10/17 15:36 98.2 87 16 116/57 (76) 98 07/10/17 14:28 98.6 94 18 139/76 (97) 100 07/10/17 10:52 97.8 88 19 96 07/10/17 10:19 98.3 92 20 128/64 98 I/O 07/10/17 07/10/17 07/10/17 07/11/17 07/11/17 07/11/17 07:00 15:00 23:00 07:00 15:00 23:00 Intake Total 410 ml 360 ml Balance 410 ml 360 ml Intake Oral 360 ml Packed Cells 400 ml Blood Product IV Normal Saline Flush 10 ml # Voids 1 3 # Bowel Movements 0 0 Physical Exam GENERAL: SKIN: Warm and dry. HEAD: Normocephalic. EYES: No scleral icterus. No injection or drainage. NECK: Supple, trachea midline. No JVD or lymphadenopathy. CARDIOVASCULAR: Regular rate and rhythm without murmurs, gallops, or rubs. RESPIRATORY: Breath sounds equal bilaterally. No accessory muscle use. GASTROINTESTINAL: Abdomen soft, non-tender, nondistended. MUSCULOSKELETAL: No cyanosis, or edema. BACK: Nontender without obvious deformity. No CVA tenderness. Laboratory Laboratory Tests Test 07/10/17 16:11 07/11/17 05:28 White Blood Count 11.9 TH/MM3 9.2 TH/MM3 Red Blood Count 3.05 MIL/MM3 2.78 MIL/MM3 Hemoglobin 9.1 GM/DL 8.6 GM/DL Hematocrit 27.3 % 25.0 % Mean Corpuscular Volume 89.6 FL 90.1 FL Mean Corpuscular Hemoglobin 29.9 PG 30.8 PG Mean Corpuscular Hemoglobin Concent 33.4 % 34.2 % Red Cell Distribution Width 14.9 % 14.7 % Platelet Count 156 TH/MM3 132 TH/MM3 Mean Platelet Volume 8.8 FL 8.6 FL Neutrophils (%) (Auto) 58.9 % Lymphocytes (%) (Auto) 29.5 % Monocytes (%) (Auto) 8.1 % Eosinophils (%) (Auto) 2.9 % Basophils (%) (Auto) 0.6 % Neutrophils # (Auto) 5.4 TH/MM3 Lymphocytes # (Auto) 2.7 TH/MM3 Monocytes # (Auto) 0.7 TH/MM3 Eosinophils # (Auto) 0.3 TH/MM3 Basophils # (Auto) 0.1 TH/MM3 CBC Comment DIFF FINAL Differential Comment Imaging Last 24 hours Impressions Pelvis CTA 07/10/17 1258 Signed Impressions: Service Date/Time: Monday, July 10, 2017 13:56 - CONCLUSION: 1. 2.7 cm partially thrombosed pseudoaneurysm with a 4.4 cm neck emanating from the distal right common femoral artery. 2. The common femoral artery itself is normal in caliber without aneurysmal disease. 3. 15.9 x 4.7 cm hematoma in the anteromedial right thigh. Nguyễn Spicer MD Lower Extremity Ultrasound 07/10/17 0856 Signed Impressions: Service Date/Time: Monday, July 10, 2017 10:57 - CONCLUSION: 1. Patient has multiple issues in the right groin. There is a complex, 8.7 x 11.9 x 3.4 cm hematoma in the medial thigh. 2. There appears to be partially thrombosed pseudoaneurysm measuring 3.2 x 2.6 x 2.0 cm with a prominent neck measuring almost 7 mm in diameter. 3. Finally, the common femoral artery itself appears to be aneurysmal in the region of the pseudoaneurysm measuring 2.5 x 2.5 x 2.3 cm with mural thrombus. 4. Because of the complexity of the of the regional vasculature in the right groin, I will obtain a CTA of the pelvic vasculature for further characterization before any planned intervention. Nguyễn Spicer MD Assessment and Plan Problem List: (1) Pseudoaneurysm of right femoral artery ICD Codes: I72.4 - Aneurysm of artery of lower extremity Status: Acute (2) CAD (coronary artery disease) ICD Codes: I25.10 - Atherosclerotic heart disease of [place] coronary artery without angina pectoris (3) Tobacco abuse ICD Codes: Z72.0 - Tobacco use Assessment and Plan 1.) Right groin hematoma - clinically improved s/p thrombin injection 07/10/17, check cbc pm and in am, transfuse if hgb<7.0; she needs aspirin and plavix due to coronary stent placement 07/06/17 Raimundo Jara MD July 11, 2017 08:34
[2017-07-11] MEDS ORDERED: ASPIRIN EC 81 MG TABEC PO ONE (08:45)
[2017-07-11] MEDS: ASPIRIN EC 81 MG TABEC PO SCH (09:00)
--- NOTE | 2017-07-11 10:20 | HHI.PR ---
Subjective Remarks Follow up anemia, hematoma. The patient states that her pain is reasonably well controlled. She reports ongoing cough, unchanged. No shortness of breath or chest pain. No nausea or vomiting. Objective Vitals Vital Signs Date Time Temp Pulse Resp B/P (MAP) Pulse Ox O2 Delivery O2 Flow Rate FiO2 07/11/17 08:00 97.7 79 19 107/55 (72) 96 07/11/17 04:22 85 07/11/17 04:00 97.9 85 20 111/58 (75) 95 07/11/17 00:00 92 07/11/17 00:00 98.2 89 22 120/58 (78) 96 07/10/17 21:25 18 07/10/17 20:00 98.5 86 22 112/55 (74) 98 07/10/17 15:36 98.2 87 16 116/57 (76) 98 07/10/17 14:28 98.6 94 18 139/76 (97) 100 07/10/17 10:52 97.8 88 19 96 07/10/17 10:19 98.3 92 20 128/64 98 I/O 07/10/17 07/10/17 07/10/17 07/11/17 07/11/17 07/11/17 07:00 15:00 23:00 07:00 15:00 23:00 Intake Total 410 ml 360 ml Balance 410 ml 360 ml Intake Oral 360 ml Packed Cells 400 ml Blood Product IV Normal Saline Flush 10 ml # Voids 1 3 # Bowel Movements 0 0 Result Diagram: 07/11/17 0528 07/10/17 0413 Imaging Last Impressions Pelvis CTA 07/10/17 1258 Signed Impressions: Service Date/Time: Monday, July 10, 2017 13:56 - CONCLUSION: 1. 2.7 cm partially thrombosed pseudoaneurysm with a 4.4 cm neck emanating from the distal right common femoral artery. 2. The common femoral artery itself is normal in caliber without aneurysmal disease. 3. 15.9 x 4.7 cm hematoma in the anteromedial right thigh. Nguyễn Spicer MD Lower Extremity Ultrasound 07/10/17 0856 Signed Impressions: Service Date/Time: Monday, July 10, 2017 10:57 - CONCLUSION: 1. Patient has multiple issues in the right groin. There is a complex, 8.7 x 11.9 x 3.4 cm hematoma in the medial thigh. 2. There appears to be partially thrombosed pseudoaneurysm measuring 3.2 x 2.6 x 2.0 cm with a prominent neck measuring almost 7 mm in diameter. 3. Finally, the common femoral artery itself appears to be aneurysmal in the region of the pseudoaneurysm measuring 2.5 x 2.5 x 2.3 cm with mural thrombus. 4. Because of the complexity of the of the regional vasculature in the right groin, I will obtain a CTA of the pelvic vasculature for further characterization before any planned intervention. Nguyễn Spicer MD Embolization, Transcatheter 07/10/17 0000 Signed Impressions: Service Date/Time: Monday, July 10, 2017 15:13 - CONCLUSION: Uncomplicated occlusion of pseudoaneurysm as above Nguyễn Spicer MD Objective Remarks General: Morbidly obese female in no acute distress. Heart: Regular rate and rhythm. No murmur. Lungs: Clear to auscultation bilaterally. No wheezes, rales, or rhonchi. Breathing is nonlabored. Abdomen: Soft, nontender, nondistended. Extremities: No lower extremity edema. Psych: Alert and oriented. Neuro: Normal speech. No focal deficits noted. Procedures 07/10/17 embolization of pseudoaneurysm Urinary Catheter: No Vascular Central Line Catheter: No A/P Problem List: (1) Pseudoaneurysm of right femoral artery ICD Code: I72.4 - Aneurysm of artery of lower extremity Status: Acute (2) CAD (coronary artery disease) ICD Code: I25.10 - Atherosclerotic heart disease of [place] coronary artery without angina pectoris (3) Tobacco abuse ICD Code: Z72.0 - Tobacco use Assessment and Plan 1. Acute right groin hematoma following cardiac catheterization: Appreciate vascular surgery and cardiology recommendations. Monitor for bleeding. 2. Acute blood loss anemia: H&H stable overnight. Monitor H&H twice daily. Transfuse if necessary. 3. Coronary artery disease with recent cardiac stent placement: Continue Plavix. Restart aspirin per cardiology. Currently asymptomatic. 4. Hyperlipidemia: Continue statin. 5. Hypertension: Blood pressure is well controlled. Patient is not on antihypertensive medications at this time. 6. DVT prophylaxis: Patient is on aspirin and Plavix. Other anticoagulation on hold secondary to hematoma, bleeding. Discharge Planning Pending vascular surgery and cardiology clearance. Chace Fox MD July 11, 2017 10:20
[2017-07-11] MEDS: MORPHINE SULFATE 4 MG/ML INJ IV PRN ×2 (16:13→20:55)
[2017-07-11 17:18] LABS: HEMATOCRIT 25.2 % (35.0-46.0); HEMOGLOBIN 8.6 GM/DL (11.6-15.3); MEAN CELL VOLUME 90.7 FL (80.0-100.0); MEAN CORPUSCULAR HGB CONC 34.2 % (32.0-36.0); MEAN PLATELET VOLUME 8.4 FL (7.0-11.0); PLATELET COUNT 144 TH/MM3 (150-450); RED BLOOD COUNT 2.78 MIL/MM3 (4.00-5.30); RED CELL DISTRIBUTION WIDTH 15.1 % (11.6-17.2); WHITE BLOOD COUNT 9.1 TH/MM3 (4.0-11.0)
[2017-07-11] MEDS: ATORVASTATIN 80 MG TAB PO SCH (20:48)
[2017-07-12] VITALS (8 sets, daily range): BP systolic 97–140; BP diastolic 53–64; PULSE 77–90; RESP 18–20; TEMP 97.8–98.1; O2SAT 95–100
[2017-07-12] MEDS: ASPIRIN EC 81 MG TABEC PO SCH (08:09)
[2017-07-12] MEDS: CLOPIDOGREL 75 MG TAB PO SCH (08:09)
[2017-07-12] MEDS: MORPHINE SULFATE 4 MG/ML INJ IV PRN ×2 (08:13→13:21)
[2017-07-12 08:46] LABS: HEMATOCRIT 24.3 % (35.0-46.0); HEMOGLOBIN 8.2 GM/DL (11.6-15.3); MEAN CELL VOLUME 90.9 FL (80.0-100.0); MEAN CORPUSCULAR HEMOGLOBIN 30.8 PG (27.0-34.0); MEAN CORPUSCULAR HGB CONC 33.9 % (32.0-36.0); MEAN PLATELET VOLUME 8.5 FL (7.0-11.0); PLATELET COUNT 141 TH/MM3 (150-450); RED BLOOD COUNT 2.67 MIL/MM3 (4.00-5.30); RED CELL DISTRIBUTION WIDTH 14.7 % (11.6-17.2); WHITE BLOOD COUNT 8.5 TH/MM3 (4.0-11.0)
--- NOTE | 2017-07-12 10:14 | PD.CARD.PN ---
Subjective Subjective Remarks s/p thrombin injection 07/10/17, improved pain and swelling right groin Objective Medications Current Medications Medications (Trade) Dose Ordered Sig/Rufino Route Start Time Stop Time Status Last Admin Sodium Chloride 1,000 ml @ 100 mls/hr Q10H IV 07/08/17 21:45 07/11/17 16:17 (Morphine Inj) 2 mg Q4H PRN IV 07/08/17 21:45 07/12/17 08:13 (Plavix) 75 mg DAILY PO 07/09/17 09:00 07/12/17 08:09 (Lipitor) 80 mg HS PO 07/09/17 21:00 07/11/17 20:48 (Ecotrin Ec) 81 mg DAILY PO 07/11/17 09:00 07/12/17 08:09 Vital Signs / I&O Vital Signs Date Time Temp Pulse Resp B/P (MAP) Pulse Ox O2 Delivery O2 Flow Rate FiO2 07/12/17 08:00 98.1 83 18 97/53 (68) 95 07/12/17 04:00 97.8 78 20 136/64 (88) 99 07/12/17 00:00 97.8 90 20 140/54 (82) 97 07/11/17 23:57 85 07/11/17 20:00 97.6 87 20 122/59 (80) 100 07/11/17 19:36 80 07/11/17 16:19 20 07/11/17 16:00 97.7 84 19 110/52 (71) 99 07/11/17 12:00 97.9 79 19 106/51 (69) 98 07/11/17 10:26 77 I/O 07/11/17 07/11/17 07/11/17 07/12/17 07/12/17 07/12/17 07:00 15:00 23:00 07:00 15:00 23:00 Intake Total 360 ml 2850 ml Balance 360 ml 2850 ml Intake Oral 360 ml 1200 ml IV Total 1650 ml # Voids 3 11 # Bowel Movements 0 0 Physical Exam GENERAL: SKIN: Warm and dry. HEAD: Normocephalic. EYES: No scleral icterus. No injection or drainage. NECK: Supple, trachea midline. No JVD or lymphadenopathy. CARDIOVASCULAR: Regular rate and rhythm without murmurs, gallops, or rubs. RESPIRATORY: Breath sounds equal bilaterally. No accessory muscle use. GASTROINTESTINAL: Abdomen soft, non-tender, nondistended. MUSCULOSKELETAL: No cyanosis, or edema. BACK: Nontender without obvious deformity. No CVA tenderness. Laboratory Laboratory Tests Test 07/11/17 16:54 07/12/17 07:50 White Blood Count 9.1 TH/MM3 8.5 TH/MM3 Red Blood Count 2.78 MIL/MM3 2.67 MIL/MM3 Hemoglobin 8.6 GM/DL 8.2 GM/DL Hematocrit 25.2 % 24.3 % Mean Corpuscular Volume 90.7 FL 90.9 FL Mean Corpuscular Hemoglobin 31.0 PG 30.8 PG Mean Corpuscular Hemoglobin Concent 34.2 % 33.9 % Red Cell Distribution Width 15.1 % 14.7 % Platelet Count 144 TH/MM3 141 TH/MM3 Mean Platelet Volume 8.4 FL 8.5 FL Assessment and Plan Problem List: (1) Pseudoaneurysm of right femoral artery ICD Codes: I72.4 - Aneurysm of artery of lower extremity Status: Acute (2) CAD (coronary artery disease) ICD Codes: I25.10 - Atherosclerotic heart disease of [place] coronary artery without angina pectoris (3) Tobacco abuse ICD Codes: Z72.0 - Tobacco use Assessment and Plan 1.) Right groin hematoma - clinically improved s/p thrombin injection 07/10/17, check cbc pm and in am, transfuse if hgb<7.0; she needs aspirin and plavix due to coronary stent placement 07/06/17; d/w Dr Sanders and Dr Mahoney; rec ambulate with assistance, start sq hep for dvt prophylaxis Raimundo Jara MD July 12, 2017 10:14
[2017-07-12] MEDS ORDERED: HEPARIN SODIUM - SQ 10,000 UNITS/ML VIAL SQ ONE (10:15)
--- NOTE | 2017-07-12 11:15 | HHI.PR ---
Subjective Remarks Follow-up hematoma, anemia. The patient continues to report pain in the right groin. She reports cough that is slightly more productive today. Denies chest pain. Does have some dyspnea on exertion. Objective Vitals Vital Signs Date Time Temp Pulse Resp B/P (MAP) Pulse Ox O2 Delivery O2 Flow Rate FiO2 07/12/17 08:00 98.1 83 18 97/53 (68) 95 07/12/17 04:00 97.8 78 20 136/64 (88) 99 07/12/17 00:00 97.8 90 20 140/54 (82) 97 07/11/17 23:57 85 07/11/17 20:00 97.6 87 20 122/59 (80) 100 07/11/17 19:36 80 07/11/17 16:19 20 07/11/17 16:00 97.7 84 19 110/52 (71) 99 07/11/17 12:00 97.9 79 19 106/51 (69) 98 I/O 07/11/17 07/11/17 07/11/17 07/12/17 07/12/17 07/12/17 07:00 15:00 23:00 07:00 15:00 23:00 Intake Total 360 ml 2850 ml Balance 360 ml 2850 ml Intake Oral 360 ml 1200 ml IV Total 1650 ml # Voids 3 11 # Bowel Movements 0 0 Result Diagram: 07/12/17 0750 07/10/17 0413 Imaging Last Impressions Pelvis CTA 07/10/17 1258 Signed Impressions: Service Date/Time: Monday, July 10, 2017 13:56 - CONCLUSION: 1. 2.7 cm partially thrombosed pseudoaneurysm with a 4.4 cm neck emanating from the distal right common femoral artery. 2. The common femoral artery itself is normal in caliber without aneurysmal disease. 3. 15.9 x 4.7 cm hematoma in the anteromedial right thigh. Nguyễn Spicer MD Lower Extremity Ultrasound 07/10/17 0856 Signed Impressions: Service Date/Time: Monday, July 10, 2017 10:57 - CONCLUSION: 1. Patient has multiple issues in the right groin. There is a complex, 8.7 x 11.9 x 3.4 cm hematoma in the medial thigh. 2. There appears to be partially thrombosed pseudoaneurysm measuring 3.2 x 2.6 x 2.0 cm with a prominent neck measuring almost 7 mm in diameter. 3. Finally, the common femoral artery itself appears to be aneurysmal in the region of the pseudoaneurysm measuring 2.5 x 2.5 x 2.3 cm with mural thrombus. 4. Because of the complexity of the of the regional vasculature in the right groin, I will obtain a CTA of the pelvic vasculature for further characterization before any planned intervention. Nguyễn Spicer MD Embolization, Transcatheter 07/10/17 0000 Signed Impressions: Service Date/Time: Monday, July 10, 2017 15:13 - CONCLUSION: Uncomplicated occlusion of pseudoaneurysm as above Nguyễn Spicer MD Objective Remarks Examined in the presence of the nurse. General: Morbidly obese female in no acute distress. Heart: Regular rate and rhythm. No murmur. Lungs: Clear to auscultation bilaterally. No wheezes, rales, or rhonchi. Breathing is nonlabored. Abdomen: Soft, nontender, nondistended. Extremities: No lower extremity edema. Psych: Alert and oriented. Neuro: Normal speech. No focal deficits noted. Skin: Large area of ecchymosis on the upper right leg and right inguinal region. Area of swelling in the upper right leg. Procedures 07/10/17 embolization of pseudoaneurysm Urinary Catheter: No Vascular Central Line Catheter: No A/P Problem List: (1) Pseudoaneurysm of right femoral artery ICD Code: I72.4 - Aneurysm of artery of lower extremity Status: Acute (2) CAD (coronary artery disease) ICD Code: I25.10 - Atherosclerotic heart disease of [place] coronary artery without angina pectoris (3) Tobacco abuse ICD Code: Z72.0 - Tobacco use Assessment and Plan 1. Acute right groin hematoma following cardiac catheterization: Appreciate vascular surgery and cardiology recommendations. Monitor for bleeding. Increase activity today. PT eval. 2. Acute blood loss anemia: H&H stable overnight. Monitor H&H twice daily. Transfuse if necessary. 3. Coronary artery disease with recent cardiac stent placement: Continue Plavix , aspirin. Currently asymptomatic. 4. Hyperlipidemia: Continue statin. 5. Hypertension: Blood pressure is well controlled. Patient is not on antihypertensive medications at this time. 6. DVT prophylaxis: Patient is on aspirin and Plavix. Start heparin for DVT prophylaxis today per cardiology. Discussed with Dr. Jara. Discharge Planning Pending vascular surgery and cardiology clearance. Chace Fox MD July 12, 2017 11:15
[2017-07-12] MEDS: SODIUM CHLOR 0.9% 1000 ML INJ 1,000 ML IV SCH ×2 (13:31→15:45)
[2017-07-12] MEDS ORDERED: ACETAMINOPHEN/HYDROcodone 325 MG/7.5 MG TAB PO PRN (14:30)
[2017-07-12] MEDS ORDERED: LORazepam 0.5 MG TAB PO PRN (15:00)
[2017-07-12] MEDS: ACETAMINOPHEN/HYDROcodone 325 MG/5 MG TAB PO PRN (16:19)
[2017-07-12 16:48] LABS: HEMATOCRIT 25.2 % (35.0-46.0); HEMOGLOBIN 8.6 GM/DL (11.6-15.3); MEAN CELL VOLUME 90.4 FL (80.0-100.0); MEAN CORPUSCULAR HEMOGLOBIN 30.8 PG (27.0-34.0); MEAN CORPUSCULAR HGB CONC 34.1 % (32.0-36.0); MEAN PLATELET VOLUME 7.9 FL (7.0-11.0); PLATELET COUNT 159 TH/MM3 (150-450); RED BLOOD COUNT 2.79 MIL/MM3 (4.00-5.30); RED CELL DISTRIBUTION WIDTH 14.7 % (11.6-17.2); WHITE BLOOD COUNT 8.3 TH/MM3 (4.0-11.0)
[2017-07-12] MEDS: HEPARIN SODIUM - SQ 10,000 UNITS/ML VIAL SQ SCH (21:19)
[2017-07-12] MEDS: ATORVASTATIN 80 MG TAB PO SCH (21:19)
[2017-07-13] VITALS: BP 117/59; PULSE 89; RESP 20; TEMP 98; O2SAT 99
[2017-07-13] MEDS: SODIUM CHLOR 0.9% 1000 ML INJ 1,000 ML IV SCH ×2 (01:45→07:59)
[2017-07-13 03:50] VITALS: PULSE 89
[2017-07-13] MEDS: ACETAMINOPHEN/HYDROcodone 325 MG/5 MG TAB PO PRN (05:32)
[2017-07-13 05:46] LABS: HEMATOCRIT 24.5 % (35.0-46.0); HEMOGLOBIN 8.3 GM/DL (11.6-15.3); MEAN CELL VOLUME 91.1 FL (80.0-100.0); MEAN CORPUSCULAR HEMOGLOBIN 30.8 PG (27.0-34.0); MEAN CORPUSCULAR HGB CONC 33.7 % (32.0-36.0); MEAN PLATELET VOLUME 8.3 FL (7.0-11.0); PLATELET COUNT 154 TH/MM3 (150-450); RED BLOOD COUNT 2.68 MIL/MM3 (4.00-5.30); WHITE BLOOD COUNT 8.1 TH/MM3 (4.0-11.0)
[2017-07-13] MEDS: CLOPIDOGREL 75 MG TAB PO SCH (07:58)
[2017-07-13] MEDS: ASPIRIN EC 81 MG TABEC PO SCH (07:58)
[2017-07-13] MEDS: HEPARIN SODIUM - SQ 10,000 UNITS/ML VIAL SQ SCH (07:59)
[2017-07-13 08:00] VITALS: BP 97/49; PULSE 89; PULSE 91; RESP 18; TEMP 97.8; O2SAT 96
--- NOTE | 2017-07-13 10:23 | HHI.PR ---
Subjective Remarks Follow-up anemia, hematoma. The patient states that she feels tired. Overall pain is better. She has been ambulating in the room. No lightheadedness or dizziness. No bleeding. Objective Vitals Vital Signs Date Time Temp Pulse Resp B/P (MAP) Pulse Ox O2 Delivery O2 Flow Rate FiO2 07/13/17 08:00 97.8 89 18 97/49 (65) 96 07/13/17 07:54 16 07/13/17 03:50 89 07/13/17 00:00 98.0 89 20 117/59 (78) 99 07/12/17 23:50 90 07/12/17 20:00 97.9 86 20 108/58 (75) 100 07/12/17 18:58 80 07/12/17 16:00 97.8 82 19 111/54 (73) 98 07/12/17 12:00 97.9 77 19 126/56 (79) 100 I/O 07/12/17 07/12/17 07/12/17 07/13/17 07/13/17 07/13/17 07:00 15:00 23:00 07:00 15:00 23:00 Intake Total 720 ml 480 ml Balance 720 ml 480 ml Intake Oral 720 ml 480 ml # Voids 6 3 # Bowel Movements 1 0 Result Diagram: 07/13/17 0520 07/10/17 0413 Imaging Last Impressions Pelvis CTA 07/10/17 1258 Signed Impressions: Service Date/Time: Monday, July 10, 2017 13:56 - CONCLUSION: 1. 2.7 cm partially thrombosed pseudoaneurysm with a 4.4 cm neck emanating from the distal right common femoral artery. 2. The common femoral artery itself is normal in caliber without aneurysmal disease. 3. 15.9 x 4.7 cm hematoma in the anteromedial right thigh. Nguyễn Spicer MD Lower Extremity Ultrasound 07/10/17 0856 Signed Impressions: Service Date/Time: Monday, July 10, 2017 10:57 - CONCLUSION: 1. Patient has multiple issues in the right groin. There is a complex, 8.7 x 11.9 x 3.4 cm hematoma in the medial thigh. 2. There appears to be partially thrombosed pseudoaneurysm measuring 3.2 x 2.6 x 2.0 cm with a prominent neck measuring almost 7 mm in diameter. 3. Finally, the common femoral artery itself appears to be aneurysmal in the region of the pseudoaneurysm measuring 2.5 x 2.5 x 2.3 cm with mural thrombus. 4. Because of the complexity of the of the regional vasculature in the right groin, I will obtain a CTA of the pelvic vasculature for further characterization before any planned intervention. Nguyễn Spicer MD Embolization, Transcatheter 07/10/17 0000 Signed Impressions: Service Date/Time: Monday, July 10, 2017 15:13 - CONCLUSION: Uncomplicated occlusion of pseudoaneurysm as above Nguyễn Spicer MD Objective Remarks General: Morbidly obese female in no acute distress. Heart: Regular rate and rhythm. No murmur. Lungs: Clear to auscultation bilaterally. No wheezes, rales, or rhonchi. Breathing is nonlabored. Abdomen: Soft, nontender, nondistended. Extremities: No lower extremity edema. Psych: Alert and oriented. Neuro: Normal speech. No focal deficits noted. Procedures 07/10/17 embolization of pseudoaneurysm Urinary Catheter: No Vascular Central Line Catheter: No A/P Problem List: (1) Pseudoaneurysm of right femoral artery ICD Code: I72.4 - Aneurysm of artery of lower extremity Status: Acute (2) CAD (coronary artery disease) ICD Code: I25.10 - Atherosclerotic heart disease of [place] coronary artery without angina pectoris (3) Tobacco abuse ICD Code: Z72.0 - Tobacco use Assessment and Plan 1. Acute right groin hematoma following cardiac catheterization: Appreciate vascular surgery and cardiology recommendations. Monitor for bleeding. Patient is ambulating. 2. Acute blood loss anemia: H&H remained stable. No further bleeding noted. 3. Coronary artery disease with recent cardiac stent placement: Continue Plavix , aspirin. Currently asymptomatic. 4. Hyperlipidemia: Continue statin. 5. Hypertension: Blood pressure is well controlled. Patient is not on antihypertensive medications at this time. 6. DVT prophylaxis: Heparin. Discharge Planning Pending vascular surgery and cardiology clearance. Chace Fox MD July 13, 2017 10:23
[2017-07-13 12:00] VITALS: BP 110/57; PULSE 85; RESP 18; TEMP 97.7; O2SAT 98
--- NOTE | 2017-07-13 12:19 | PD.CARD.PN ---
Subjective Subjective Remarks s/p thrombin injection 07/10/17, improved but unchanged pain and swelling right groin; ow assymptomatic, ambulating without difficulty Objective Medications Current Medications Medications (Trade) Dose Ordered Sig/Rufino Route Start Time Stop Time Status Last Admin Sodium Chloride 1,000 ml @ 100 mls/hr Q10H IV 07/08/17 21:45 07/12/17 13:31 (Plavix) 75 mg DAILY PO 07/09/17 09:00 07/13/17 07:58 (Lipitor) 80 mg HS PO 07/09/17 21:00 07/12/17 21:19 (Ecotrin Ec) 81 mg DAILY PO 07/11/17 09:00 07/13/17 07:58 (Heparin Inj) 5,000 units Q12HR SQ 07/12/17 21:00 07/13/17 07:59 ([place] 5-325 Mg) 1 tab Q4H PRN PO 07/12/17 14:30 07/13/17 05:32 ([place] 7.5-325 Mg) 1 tab Q4H PRN PO 07/12/17 14:30 07/12/17 21:19 (Ativan) 0.5 mg Q8H PRN PO 07/12/17 15:00 Vital Signs / I&O Vital Signs Date Time Temp Pulse Resp B/P (MAP) Pulse Ox O2 Delivery O2 Flow Rate FiO2 07/13/17 08:00 97.8 89 18 97/49 (65) 96 07/13/17 08:00 91 07/13/17 07:54 16 07/13/17 03:50 89 07/13/17 00:00 98.0 89 20 117/59 (78) 99 07/12/17 23:50 90 07/12/17 20:00 97.9 86 20 108/58 (75) 100 07/12/17 18:58 80 07/12/17 16:00 97.8 82 19 111/54 (73) 98 I/O 07/12/17 07/12/17 07/12/17 07/13/17 07/13/17 07/13/17 07:00 15:00 23:00 07:00 15:00 23:00 Intake Total 720 ml 480 ml Balance 720 ml 480 ml Intake Oral 720 ml 480 ml # Voids 6 3 # Bowel Movements 1 0 Physical Exam GENERAL: SKIN: Warm and dry. HEAD: Normocephalic. EYES: No scleral icterus. No injection or drainage. NECK: Supple, trachea midline. No JVD or lymphadenopathy. CARDIOVASCULAR: Regular rate and rhythm without murmurs, gallops, or rubs. RESPIRATORY: Breath sounds equal bilaterally. No accessory muscle use. GASTROINTESTINAL: Abdomen soft, non-tender, nondistended. MUSCULOSKELETAL: No cyanosis, or edema. BACK: Nontender without obvious deformity. No CVA tenderness. Laboratory Laboratory Tests Test 07/12/17 16:33 07/13/17 05:20 White Blood Count 8.3 TH/MM3 8.1 TH/MM3 Red Blood Count 2.79 MIL/MM3 2.68 MIL/MM3 Hemoglobin 8.6 GM/DL 8.3 GM/DL Hematocrit 25.2 % 24.5 % Mean Corpuscular Volume 90.4 FL 91.1 FL Mean Corpuscular Hemoglobin 30.8 PG 30.8 PG Mean Corpuscular Hemoglobin Concent 34.1 % 33.7 % Red Cell Distribution Width 14.7 % 15.0 % Platelet Count 159 TH/MM3 154 TH/MM3 Mean Platelet Volume 7.9 FL 8.3 FL Assessment and Plan Problem List: (1) Pseudoaneurysm of right femoral artery ICD Codes: I72.4 - Aneurysm of artery of lower extremity Status: Acute (2) CAD (coronary artery disease) ICD Codes: I25.10 - Atherosclerotic heart disease of [place] coronary artery without angina pectoris (3) Tobacco abuse ICD Codes: Z72.0 - Tobacco use Assessment and Plan 1.) Right groin hematoma - clinically improved s/p thrombin injection 07/10/17, ok to dc from cardiovascular standpoint, she needs aspirin and plavix due to coronary stent placement 07/06/17, continue lipitor 80 mg hs; advised patient to ambulate with assistance at home, continue to hold darien and altperi, f/u with me in office 07/14/17 Raimundo Jara MD July 13, 2017 12:19
[2017-07-13] MEDS ORDERED: HYDR-3516 PO (12:30)
--- NOTE | 2017-07-13 12:32 | HHI.DCPOC ---
Discharge Care Plan Diagnosis: (1) Hematoma (2) Acute blood loss anemia (3) CAD (coronary artery disease) (4) Pseudoaneurysm of right femoral artery (5) Hyperlipidemia (6) Benign hypertension Goals to Promote Your Health * To prevent worsening of your condition and complications * To maintain your health at the optimal level Directions to Meet Your Goals Take your medications as prescribed Follow your dietary instruction Follow activity as directed Keep your appointments as scheduled Take your immunizations and boosters as scheduled If your symptoms worsen call your PCP, if no PCP go to Urgent Care Center or Emergency Room Smoking is Dangerous to Your Health. Avoid second hand smoke Call the 24-hour hour crisis hotline for domestic abuse at Chace Fox MD July 13, 2017 12:32
--- NOTE | 2017-07-13 12:37 | HHI.DS ---
Discharge Summary Admission Date July 10, 2017 at 11:54 Discharge Date: July 13, 2017 Admitting Diagnosis acute R fem pseudoaneurysm s/p card cath (1) Pseudoaneurysm of right femoral artery ICD Code: I72.4 - Aneurysm of artery of lower extremity Status: Acute (2) CAD (coronary artery disease) ICD Code: I25.10 - Atherosclerotic heart disease of [place] coronary artery without angina pectoris (3) Tobacco abuse ICD Code: Z72.0 - Tobacco use Procedures 07/10/17 embolization of pseudoaneurysm Brief History - From Admission Mrs. Elizabeth is a 41 year old female. She has a recent history of heart catheterization 2 days ago with placement of a stent. At this point she is on aspirin and Plavix. She did well during the procedure and was discharged yesterday. At home she says that she coughed and had an immediate pain followed by swelling and bruising at the right groin. Today she says that the swelling has improved compared to yesterday. She is admitted for observation and cardiology and vascular surgery evaluations are pending. No other complaints today. Pain is under control. CBC/BMP: 07/13/17 0520 07/10/17 0413 Significant Findings Laboratory Tests Test 07/10/17 16:11 07/11/17 05:28 07/11/17 16:54 07/12/17 07:50 White Blood Count 11.9 TH/MM3 (4.0-11.0) Red Blood Count 3.05 MIL/MM3 (4.00-5.30) 2.78 MIL/MM3 (4.00-5.30) 2.78 MIL/MM3 (4.00-5.30) 2.67 MIL/MM3 (4.00-5.30) Hemoglobin 9.1 GM/DL (11.6-15.3) 8.6 GM/DL (11.6-15.3) 8.6 GM/DL (11.6-15.3) 8.2 GM/DL (11.6-15.3) Hematocrit 27.3 % (35.0-46.0) 25.0 % (35.0-46.0) 25.2 % (35.0-46.0) 24.3 % (35.0-46.0) Platelet Count 132 TH/MM3 (150-450) 144 TH/MM3 (150-450) 141 TH/MM3 (150-450) Monocytes (%) (Auto) 8.1 % (0.0-8.0) Test 07/12/17 16:33 07/13/17 05:20 Red Blood Count 2.79 MIL/MM3 (4.00-5.30) 2.68 MIL/MM3 (4.00-5.30) Hemoglobin 8.6 GM/DL (11.6-15.3) 8.3 GM/DL (11.6-15.3) Hematocrit 25.2 % (35.0-46.0) 24.5 % (35.0-46.0) Imaging Last Impressions Pelvis CTA 07/10/17 1258 Signed Impressions: Service Date/Time: Monday, July 10, 2017 13:56 - CONCLUSION: 1. 2.7 cm partially thrombosed pseudoaneurysm with a 4.4 cm neck emanating from the distal right common femoral artery. 2. The common femoral artery itself is normal in caliber without aneurysmal disease. 3. 15.9 x 4.7 cm hematoma in the anteromedial right thigh. Nguyễn Spicer MD Lower Extremity Ultrasound 07/10/17 0856 Signed Impressions: Service Date/Time: Monday, July 10, 2017 10:57 - CONCLUSION: 1. Patient has multiple issues in the right groin. There is a complex, 8.7 x 11.9 x 3.4 cm hematoma in the medial thigh. 2. There appears to be partially thrombosed pseudoaneurysm measuring 3.2 x 2.6 x 2.0 cm with a prominent neck measuring almost 7 mm in diameter. 3. Finally, the common femoral artery itself appears to be aneurysmal in the region of the pseudoaneurysm measuring 2.5 x 2.5 x 2.3 cm with mural thrombus. 4. Because of the complexity of the of the regional vasculature in the right groin, I will obtain a CTA of the pelvic vasculature for further characterization before any planned intervention. Nguyễn Spicer MD Embolization, Transcatheter 07/10/17 0000 Signed Impressions: Service Date/Time: Monday, July 10, 2017 15:13 - CONCLUSION: Uncomplicated occlusion of pseudoaneurysm as above Nguyễn Spicer MD PE at Discharge General: Morbidly obese female in no acute distress. Heart: Regular rate and rhythm. No murmur. Lungs: Clear to auscultation bilaterally. No wheezes, rales, or rhonchi. Breathing is nonlabored. Abdomen: Soft, nontender, nondistended. Extremities: No lower extremity edema. Psych: Alert and oriented. Neuro: Normal speech. No focal deficits noted. Pt update on day of discharge Cleared for discharge by cardiology. I spoke with Dr. Hart, who cleared the patient for discharge as well. Hospital Course The patient was admitted for management of acute right groin hematoma. She was given transfusion of 1 unit PRBCs during hospitalization. Cardiology was consulted. Vascular surgery was consulted. Interventional radiology performed embolization of the pseudoaneurysm. Hemoglobin remained stable. The pain from the hematoma was improving. She was ambulating with assistance. She was cleared for discharge by cardiology. She was also cleared for discharge by vascular surgery. She was felt to be stable for discharge home. Physical therapy recommended home health, but patient refused home health care. Pt Condition on Discharge: Stable Discharge Disposition: Discharge Home Discharge Time: > 30 minutes Discharge Instructions DIET: Follow Instructions for: As Tolerated, No Restrictions Activities you can perform: Regular-No Restrictions Other Activity Instructions: With assistance Follow up Referrals: Cardiology - 07/14/17 with Raimundo Jara MD PCP Follow-up - 1 Week New Medications: Hydrocodone/Acetaminophen (Hydrocodone-Acetamin 5-325 mg) 5 Mg-325 Mg Tablet 1 TAB PO Q4H PRN for PAIN SCALE 4 TO 10, #15 TAB 0 Refills Continued Medications: Albuterol 8.5 GM Inh (Proair Hfa 8.5 GM Inh) 90 Mcg/Act Aer 2 PUFF INH Q4-6H PRN for SHORTNESS OF BREATH, #1 INHALER 0 Refills 108 mcg/actuation Albuterol 8.5 GM Inh (Proair Hfa 8.5 GM Inh) 90 Mcg/Act Aer 2 PUFF INH Q4-6H PRN for SHORTNESS OF BREATH, #1 INHALER 0 Refills 108 mcg/actuation Apremilast (Otezla) 30 Mg Tab 30 MG PO BID Aspirin DR (Aspirin DR) 81 Mg Tabdr 81 MG PO DAILY, TAB 0 Refills Atorvastatin (Atorvastatin) 80 Mg Tab 80 MG PO HS for Cholesterol Management, #30 TAB 0 Refills Clopidogrel (Plavix) 75 Mg Tab 75 MG PO DAILY for Blood Clot Prevention, #30 TAB 0 Refills Lorazepam (Ativan) 1 Mg Tab 1 MG PO Q8H PRN for ANXIETY AND/OR AGITATION, TAB 0 Refills [Research med] () Discontinued Medications: Amitriptyline (Amitriptyline) 10 Mg Tab 10 MG PO HS, TAB Amitriptyline (Amitriptyline) 10 Mg Tab 10 MG PO HS, TAB Apremilast (Otezla) 30 Mg Tab 1 TAB PO DAILY for PSORIATIC ARTHRITIS Aspirin (Aspirin) 81 Mg Chew 162 MG PO DAILY, TAB 0 Refills Atorvastatin (Atorvastatin) 80 Mg Tab 80 MG PO HS for Cholesterol Management for 30 Days, TAB Carvedilol (Coreg) 3.125 Mg Tab 3.125 MG PO Q12HR for Blood Pressure Management for 30 Days, TAB Carvedilol (Carvedilol) 3.125 Mg Tab 3.125 MG PO BID, #60 TAB 0 Refills Clopidogrel (Plavix) 75 Mg Tab 75 MG PO DAILY for Blood Clot Prevention for 30 Days, #30 TAB Cyclobenzaprine (Flexeril) 10 Mg Tab 10 MG PO TID for Muscle Spasm, #90 TAB 0 Refills Cyclobenzaprine (Flexeril) 10 Mg Tab 10 MG PO TID for Muscle Spasm, #90 TAB 0 Refills Lorazepam (Ativan) 1 Mg Tab 1 MG PO DAILY PRN for ANXIETY AND/OR AGITATION, TAB 0 Refills Oxycodone-Acetaminophen (Percocet) 10-325 mg Tab 1 TAB PO Q6H PRN for PAIN, TAB 0 Refills Oxycodone-Acetaminophen (Oxycodone-Acetaminophen) 10-325 mg Tab 1 TAB PO Q6HR for Pain Management, TAB 0 Refills Ramipril (Ramipril) 2.5 Mg Cap 2.5 MG PO DAILY for Blood Pressure Management for 30 Days, #30 CAP Ramipril (Ramipril) 2.5 Mg Cap 2.5 MG PO DAILY, #30 CAP 0 Refills Chace Fox MD July 13, 2017 12:37
== END 2017-07-13 13:19 | disposition home or self-care (01) | DRG 253 ==
LOC: PHED 20:15 → PHEDA 21:52 → NEPFCDU 07-09 02:44 → OBSVTOIN 07-10 11:54 → N07B 07-10 14:44
PROVIDERS: ADMIT Family Medicine; ATTEND Family Medicine
PROC: 04LK3DZ Occlusion of Right Femoral Artery with Intraluminal Device, Percutaneous Approach (ICD-10-PCS; principal; 2017-07-10)
PROC: 3E053GC Introduction of Other Therapeutic Substance into Peripheral Artery, Percutaneous Approach (ICD-10-PCS; 2017-07-10)
PROC: 30233N1 Transfusion of Nonautologous Red Blood Cells into Peripheral Vein, Percutaneous Approach (ICD-10-PCS; 2017-07-10)
DX: I72.4 Aneurysm of artery of lower extremity (principal); Z68.44 Body mass index [BMI] 60.0-69.9, adult; D62 Acute posthemorrhagic anemia; E66.01 Morbid (severe) obesity due to excess calories; L40.50 Arthropathic psoriasis, unspecified; I10 Essential (primary) hypertension; E78.5 Hyperlipidemia, unspecified; M19.90 Unspecified osteoarthritis, unspecified site; I25.10 Atherosclerotic heart disease of native coronary artery without angina pectoris; E28.2 Polycystic ovarian syndrome; F17.210 Nicotine dependence, cigarettes, uncomplicated; M79.7 Fibromyalgia; F41.9 Anxiety disorder, unspecified; J44.9 Chronic obstructive pulmonary disease, unspecified; Z95.5 Presence of coronary angioplasty implant and graft; Z88.2 Allergy status to sulfonamides
CPT/HCPCS: 36002; 36430; 72191; 76942; 80048; 80053; 84702; 85025; 85027; 85610; 85730; 86850; 86900; 86901; 86920; 93926; J1170; J1644; J2270; J2405; J7030; J7050; P9016; Q9967

== ENCOUNTER → 2017-07-14 | Outpatient (CLI) | payer MEDICARE, BC ==
[~2017-07-14] MED LIST changes: -AMIT10TA6 PO; -CARV3.125 PO; -CYCL10TA PO; +HYDR-3516 PO; -PERC10TA27 PO; -RAMI2.5C PO
[2017-07-14 13:26] LABS: HEMATOCRIT 26.3 % (35.0-46.0); HEMOGLOBIN 9.1 GM/DL (11.6-15.3); MEAN CELL VOLUME 90.7 FL (80.0-100.0); MEAN CORPUSCULAR HEMOGLOBIN 31.4 PG (27.0-34.0); MEAN CORPUSCULAR HGB CONC 34.6 % (32.0-36.0); MEAN PLATELET VOLUME 7.7 FL (7.0-11.0); PLATELET COUNT 197 TH/MM3 (150-450); RED BLOOD COUNT 2.89 MIL/MM3 (4.00-5.30); RED CELL DISTRIBUTION WIDTH 15.1 % (11.6-17.2); WHITE BLOOD COUNT 9.9 TH/MM3 (4.0-11.0)
[2017-07-14 13:37] LABS: CALCIUM 8.5 MG/DL (8.5-10.1)
[2017-07-14 13:41] LABS: CREATININE 0.58 MG/DL (0.50-1.00)
== END ==
LOC: PLAB 13:01
PROVIDERS: ATTEND Internal Medicine Interventional Cardiology
DX: I25.10 Atherosclerotic heart disease of native coronary artery without angina pectoris (principal); R78.89 Finding of other specified substances, not normally found in blood; R06.00 Dyspnea, unspecified; I50.9 Heart failure, unspecified; I45.4 Nonspecific intraventricular block
CPT/HCPCS: 36415; 80048; 83735; 83880; 85027